=== PATIENT | female | born 1945 | race Caucasian/White ===

== ENCOUNTER → 2017-04-09 | Outpatient (RCR) | payer MEDICARE, OTHER, SELFPAY | LOC: PT 02-15 12:53 | PROVIDERS: Visit Provider Nurse Practitioner | DX: L03.116 Cellulitis of left lower limb (principal) | CPT/HCPCS: G8990; G8991; G8992; 97140; 97162; 97597 ==

== ENCOUNTER 2017-05-07 09:00 | Outpatient (RCR) | payer MEDICARE, OTHER, SELFPAY | END 2017-05-07 09:02 | disposition home or self-care (01) | LOC: PT 09:00 | PROVIDERS: Family Provider Family Medicine; PCP Family Medicine; Visit Provider Family Medicine | DX: L03.116 Cellulitis of left lower limb (principal) | CPT/HCPCS: 97140; 97597 ==

== ENCOUNTER → 2017-10-26 09:52 | Outpatient (CLI) | payer MEDICARE, OTHER, SELFPAY ==
--- NOTE | 2017-10-26 09:54 | US_ITS ---
US Arterial Ankle Brachial Ind HISTORY: ITS.REASON: skin. Changes. Discoloration lower legs. Lymphedema. Rest pain. Bilateral Claudication. Previous smoker. Hypertension. CVA. .. TECHNIQUE: Segmental pressures obtained of both right and left leg. These are compared to brachial blood pressure to yield index at each level sampled including summary MICHELLE. The data sheets from the procedure are available in PACS FINDINGS Rest study only performed today No prior studies available for comparison. Blood pressures reported are in millimeters mercury. ====== RIGHT LEG MICHELLE = 0.8. Mild impaired flow RIGHT LEG TBI = 0.8 Brachial BP: 182 Thigh BP: 143 with index 0.73 Calf BP: BP 132 with index 0.67 Ankle PT: BP 150 with index 0.76 Ankle DP : BP 121 with index 0.61 Digit =BP 109 with index 0.55 ====== LEFT LEG MICHELLE = 0.6 moderate impaired flow. LEFT TBI = 0.6 Brachial BPD: 197 Thigh BP: BP 176 with index 0.89 Calf BP: BP 161 with index 0.82 Ankle PT:BP 113 with index 0.57 Ankle DP: BP 113 with index 0.57 Digit = BP 121 with index 0.61 . diminished pulses. Adequate waveforms bilaterally. IMPRESSION:------- RIGHT LEG MICHELLE = 0.8. RIGHT LEG TBI = 0.8 LEFT LEG MICHELLE = 0.6. LEFT TBI = 0.6 Adequate waveforms bilaterally. Diminished pulses .
== END ==
PROVIDERS: Family Provider Family Medicine; PCP Family Medicine; Visit Provider Podiatrist
DX: R23.9 Unspecified skin changes (principal); R09.89 Other specified symptoms and signs involving the circulatory and respiratory systems
CPT/HCPCS: 93922

== ENCOUNTER → 2017-11-29 15:53 | Outpatient (CLI) | payer MEDICARE, OTHER, SELFPAY ==
--- NOTE | 2017-11-29 16:21 | XR_ITS ---
XR chest 2V HISTORY: Dyspnea. ITS.REASON: SHORTNESS OF BREATH,EDEMA ORDERING PHYSICIAN: Kimberly Martin PATIENT AGE: 72 years Technique: PA and lateral chest COMPARISON: PA and lateral chest 06/20/2015 FINDINGS:. Nothing definitely acute. Mild eccentric markings at the lung bases is similar to previous studies with no focal pneumonia. No pneumothorax. No pleural effusion. No CHF. Heart is upper normal in size. Calcified aortic knob. Mild degenerative changes T spine stable. Chest wall intact. IMPRESSION stable chest with nothing definitely acute.
== END ==
PROVIDERS: PCP Family Medicine; Visit Provider Nurse Practitioner Family
DX: R06.02 Shortness of breath (principal); R60.9 Edema, unspecified
CPT/HCPCS: 71046; 93005

== ENCOUNTER → 2017-11-30 09:35 | Outpatient (CLI) | payer MEDICARE, OTHER, SELFPAY ==
[2017-11-30 10:31] LABS: Basophils # 0.1 K/mm3 (0-0.2); Basophils % 0.9 % (0.1-2.0); Eosinophils # 0.5 K/mm3 (0.0-0.4); Eosinophils % 6.2 % (0.1-12.0); Hematocrit 42.8 % (37.0-47.0); Lymphocytes # 2.2 K/mm3 (0.7-4.5); Lymphocytes % 28.2 K/mm3 (10-50); Mean Corpuscular HGB Conc 32.8 g/dL (31.8-35.4); Mean Corpuscular Hemoglobin 29.7 pg (27.0-31.2); Mean Corpuscular Volume 90.7 fl (81-99); Mean Platelet Volume 7.2 fl (7.4-10.4); Monocytes # 0.5 K/mm3 (0.1-1.0); Monocytes % 5.9 % (1.7-9.3); Neutrophils # 4.6 K/mm3 (1.8-7.8); Neutrophils % 58.7 % (37.0-80.0); Platelet Count 158 K/mm3 (142-424); Red Blood Count 4.72 M/mm3 (4.20-5.40); Red Cell Distribution Width 13.4 % (11.5-17.5); White Blood Count 7.8 K/mm3 (4.8-10.8)
[2017-11-30 11:04] LABS: Alanine Aminotransferase 32 U/L (12-78); Albumin Level 3.5 gm/dL (3.4-5.0); Albumin/Globulin Ratio 1.1 (1.1-1.8); Alkaline Phosphatase 111 U/L (46-116); Anion Gap 12.4 mEq/L (5-15); Aspartate Amino Transferase 18 U/L (15-37); Bilirubin,Total 0.5 mg/dL (0.2-1.0); Blood Urea Nitrogen 22 mg/dL (7-18); Calcium 8.9 mg/dL (8.5-10.1); Carbon Dioxide 28 mmol/L (21.0-32.0); Chloride 105 mmol/L (98-107); Chol/HDL Ratio 5.4 (1-3.5); Cholesterol 227 mg/dL (140-200); Creatinine,Serum 1.54 mg/dL (0.55-1.02); Estimated Glomerular Filt Rate 33 ml/min (>60); Free T4 (Free Thyroxine) 1.04 ng/dl (0.76-1.46); GFR (African American) 40 ML/MIN (>60); Globulin 3.3 gm/dl (1.3-3.2); Glucose 140 mg/dL (74-106); HDL Cholesterol 42 mg/dL (29-89); LDL Cholesterol 146 mg/dL (0-130); Potassium 4.4 mmoL/L (3.5-5.1); Sodium 141 mmol/L (136-145); Total Protein,Serum 6.8 gm/dL (6.4-8.2); Triglycerides 195 mg/dL (30-200); VLDL Cholesterol 39 mg/dL (0-40)
== END ==
PROVIDERS: Visit Provider Nurse Practitioner Family
DX: R60.9 Edema, unspecified (principal); R06.02 Shortness of breath; Z79.899 Other long term (current) drug therapy
CPT/HCPCS: 36415; 80053; 80061; 83880; 84439; 84443; 85025

== ENCOUNTER → 2017-12-23 09:28 | Outpatient (CLI) | payer MEDICARE, OTHER, SELFPAY ==
--- NOTE | 2017-12-23 09:32 | US_ITS ---
US thyroid HISTORY: ITS.REASON: THYROMEGALY, hypothyroidism ORDERING PHYSICIAN: Kimberly Martin PATIENT AGE: 72 years Comparison: None FINDINGS: The right lobe is 4.2 x 1.2 0.4 cm. Multiple small nodules are present. Hypoechoic nodule upper pole 3 mm. Hypoechoic nodule upper pole 6 mm suggesting a cyst. 5 mm hypoechoic nodule upper pole. 13 mm hypoechoic nodule mid polar region representing a complex cyst with some septations well-circumscribed. 3 mm hypoechoic nodule lower pole The left lobe is 3.3 x 1.1 x 1.5 cm. Multiple hypoechoic nodules including a 4 mm hypoechoic nodule upper pole, and mixed nodule in the midpole 7 x 5 mm, and a complex cystic nodule in the midpole at 5 x 4 mm as well as a Hypoechoic nodule in the lower pole 6 mm. Hypoechoic nodule lower pole at 4 mm consistent with a cyst. IMPRESSION: Multiple small bilateral thyroid nodules. The largest nodules in the mid polar region on the right having a complex cystic appearance at 13 mm. Consider 6 month follow-up to confirm stability
[2017-12-23 11:19] VITALS: PULSE 56
== END ==
PROVIDERS: Family Provider Family Medicine; PCP Family Medicine; Visit Provider Nurse Practitioner Family
DX: R06.02 Shortness of breath (principal); E01.0 Iodine-deficiency related diffuse (endemic) goiter
CPT/HCPCS: 76536; 94060; 94640

== ENCOUNTER → 2018-07-05 13:53 | Outpatient (POV) | payer MEDICARE, OTHER, SELFPAY | PROVIDERS: Visit Provider Dermatology | DX: Z00.00 Encounter for general adult medical examination without abnormal findings (principal) ==

== ENCOUNTER → 2018-10-06 09:59 | Outpatient (CLI) | payer MEDICARE, OTHER, SELFPAY ==
--- NOTE | 2018-10-06 10:22 | XR_ITS ---
XR chest 2V HISTORY: ITS.REASON: SOB,SWELLING OF LOWER EXT ORDERING PHYSICIAN: Kimberly Martin APRN PATIENT AGE: 73 years COMPARISON: 11/29/2017. FINDINGS: The cardiomediastinal silhouette and pulmonary vascularity are within normal limits. The lungs are clear without infiltrates, suspicious nodules, or pleural effusions. No acute bony abnormalities. IMPRESSION: Negative chest, no acute finding
[2018-10-06 11:06] LABS: Basophils # 0.1 K/mm3 (0-0.2); Basophils % 0.9 % (0.1-2.0); Eosinophils # 0.5 K/mm3 (0.0-0.4); Hematocrit 41.9 % (37.0-47.0); Hemoglobin 13.1 g/dL (12.2-16.2); Lymphocytes # 2.6 K/mm3 (0.7-4.5); Lymphocytes % 33.2 % (10-50); Mean Corpuscular HGB Conc 31.3 g/dL (31.8-35.4); Mean Corpuscular Hemoglobin 30.5 pg (27.0-31.2); Mean Corpuscular Volume 97.6 fl (81-99); Mean Platelet Volume 7.3 fl (7.4-10.4); Monocytes # 0.4 K/mm3 (0.1-1.0); Monocytes % 5.6 % (1.7-9.3); Neutrophils # 4.2 K/mm3 (1.8-7.8); Neutrophils % 54.3 % (37.0-80.0); Platelet Count 269 K/mm3 (142-424); Red Blood Count 4.29 M/mm3 (4.20-5.40); Red Cell Distribution Width 14.8 % (11.5-17.5); White Blood Count 7.8 K/mm3 (4.8-10.8)
[2018-10-06 11:23] LABS: Alanine Aminotransferase 27 U/L (12-78); Albumin Level 3.4 gm/dL (3.4-5.0); Albumin/Globulin Ratio 0.8 (1.1-1.8); Alkaline Phosphatase 100 U/L (46-116); Anion Gap 16.7 mEq/L (5-15); Aspartate Amino Transferase 25 U/L (15-37); Bilirubin,Total 0.5 mg/dL (0.2-1.0); Blood Urea Nitrogen 31 mg/dL (7-18); Calcium 9.2 mg/dL (8.5-10.1); Carbon Dioxide 24 mmol/L (21.0-32.0); Chloride 104 mmol/L (98-107); Creatinine,Serum 1.48 mg/dL (0.55-1.02); Estimated Glomerular Filt Rate 34 ml/min (>60); GFR (African American) 42 ML/MIN (>60); Globulin 4.2 gm/dl (1.3-3.2); Glucose 146 mg/dL (74-106); Potassium 3.7 mmoL/L (3.5-5.1); Sodium 141 mmol/L (136-145); Total Protein,Serum 7.6 gm/dL (6.4-8.2); Troponin I < 0.02 ng/ml (0.00-0.06)
[2018-10-06 12:16] LABS: INR 1.03 (0.9-1.1); Prothrombin Time 10.7 seconds (9.4-11.8)
[2018-10-06 14:57] LABS: D-Dimer 2220 ng/mL (0-400)
== END ==
PROVIDERS: PCP Nurse Practitioner Family; Visit Provider Nurse Practitioner Family
DX: R06.02 Shortness of breath (principal); M79.89 Other specified soft tissue disorders
CPT/HCPCS: 36415; 71046; 80053; 84484; 85025; 85378; 85610; 93005

== ENCOUNTER → 2018-10-07 10:48 | Outpatient (CLI) | payer MEDICARE, OTHER, SELFPAY ==
--- NOTE | 2018-10-07 10:54 | NM_ITS ---
NM pul vent and perfuse CLINICAL INDICATION: ITS.REASON: SHORTNESS OF BREATH,ELEVATED D-DIMER ORDERING PHYSICIAN: Kimberly Martin APRN PATIENT AGE: 73 years Comparison: 10/06/2018 FINDINGS: The ventilation study is performed with 34.4 mCi of technetium DTPA. Perfusion is performed with 7.69 mCi of MAA. Ventilation portion of the study shows only mild inhomogeneous activity bilaterally. Perfusion images shows no subsegmental, segmental or lobar defects. IMPRESSION: Normal study. No evidence of pulmonary embolism.
== END ==
PROVIDERS: PCP Nurse Practitioner Family; Visit Provider Nurse Practitioner Family
DX: R06.02 Shortness of breath (principal); R79.89 Other specified abnormal findings of blood chemistry
CPT/HCPCS: 78582; A9540; A9567

== ENCOUNTER → 2018-10-26 15:15 | Outpatient (CLI) | payer MEDICARE, OTHER, SELFPAY ==
--- NOTE | 2018-10-26 15:20 | US_ITS ---
US thyroid HISTORY: Follow-up thyroid nodules ITS.REASON: MULTIPLE THYROID NODULES ORDERING PHYSICIAN: Danilo Durham MD PATIENT AGE: 73 years Comparison: 12/23/2017 FINDINGS: The right lobe is 4.3 x 2.2 x 2.2 cm. There are multiple cystic lesions of the right lobe of the thyroid gland the largest in the mid polar region measuring 1.3 x 1 cm unchanged. The left lobe is 4.5 x 1.7 x 1.4 cm. 6 mm septated cyst in the upper pole unchanged. 6 x 4 mm mixed nodule in the mid polar region unchanged. 4 mm complex cyst lower pole 4 mm cyst lower pole. The isthmus is slightly prominent at 8 mm. IMPRESSION: Multinodular goiter with most of the nodules representing cysts not significant change
== END ==
PROVIDERS: PCP Family Medicine; Visit Provider Family Medicine
DX: E04.2 Nontoxic multinodular goiter (principal)
CPT/HCPCS: 76536

== ENCOUNTER → 2019-01-02 14:29 | Outpatient (CLI) | payer MEDICARE, OTHER, SELFPAY ==
--- NOTE | 2019-01-02 14:33 | XR_ITS ---
PROCEDURE: XR FOOT WT BEARING RT 3V CLINICAL INDICATION: heel pain COMPARISON: No exams were available for comparison FINDINGS: Mild osteoarthritic changes are present at the talonavicular, navicular cuneiform, and cuneiform metatarsal junction. There is pes planus. Small calcaneal spur noted. Bone plate is present along the lateral aspect of the distal fibula. IMPRESSION: Mild osteoarthritic change with pes planus Dictated by: Guilherme Robbins MD 01/02/2019 16:45 Electronically signed by Guilherme Robbins MD in [place] 01/02/2019 16:45
== END ==
PROVIDERS: PCP Family Medicine; Visit Provider Podiatrist
DX: M79.672 Pain in left foot (principal)
CPT/HCPCS: 73630

== ENCOUNTER 2019-01-27 13:00 | Outpatient (RCR) | payer MEDICARE, OTHER, SELFPAY | END 2019-01-27 13:05 | disposition home or self-care (01) | LOC: PT 13:00 | PROVIDERS: PCP Family Medicine; Visit Provider Family Medicine | DX: I89.0 Lymphedema, not elsewhere classified (principal) | CPT/HCPCS: 97110; 97140; 97162; 97164 ==

== ENCOUNTER 2019-08-03 05:19 | Inpatient (IN) | payer MEDICARE, OTHER, SELFPAY ==
[2019-08-03] VITALS (34 sets, daily range): BP systolic 86–199; BP diastolic 39–98; PULSE 48–84; RESP 14–20; TEMP 36.4; O2SAT 86–97; BMI 39.9; BMI 43.6
--- NOTE | 2019-08-03 | IR_ITS ---
APPROVED REPORT Patient Location: Inpatient Poultry Veterinarian: RAFA Chapin RT (R) PROCEDURES Left heart catheterization Left ventriculogram Selective coronary angiogram Drug-eluting stent deployment to the proximal and mid large circumflex artery INDICATION Coronary artery disease, Acute non-ST elevation myocardial infarction Informed consent was obtained prior to the procedure. COMPLICATIONS NONE Estimated Blood Loss: LESS THAN 10 ML TECHNIQUE One percent lidocaine used to anesthetize the right anterior aspect of the wrist. The right radial artery was accessed via the Seldinger technique. A 6 Yakut sheath was placed in the right radial artery. 2.5 mg of verapamil, 800 mcg of nitroglycerin, 1mg Lidocaine and 5000 U Heparin were given through the arterial sheath. The trap catheter was also used to perform left heart catheterization, left ventriculogram and selective coronary angiogram. At the end of the diagnostic angiogram therapeutic heparin was administered giving a therapeutic ACT. And I Valerie left guide catheter was used to intubate the left main artery and a Choice PT extra-support wire was placed in the circumflex artery. A 2.5 x 12 mm balloon was used to predilate the stenosis. Following this a 3 mm x 26 mm resolute paulo stent was deployed at 20 ponce reducing the stenosis. Distal to this stent there was a 50% stenosis. Nitroglycerin was given 800 mcg which failed to reduce the lesion. Because this was not spasm a 2.75 x 12 mm resolute paulo stent was placed distal to the first stent yet still overlapping it and deployed at 20 ponce. The balloon was then brought back between the 2 and deployed at 26 ponce to post dilate and to allow better meshing. At the end of the procedure the apparatus was removed the sheath was removed good hemostasis was achieved using TR banding patient was transferred to the postop holding her stable condition ANGIOGRAPHIC RESULTS The left main artery Normal The left anterior descending artery Has proximal 20 to 30% stenosis with a mid vessel 40% stenosis followed by a concentric 50 to 70% stenosis. A 1.5 to 1.75 mm first diagonal artery has an ostial 70% stenosis. The circumflex artery Is nondominant yet a large caliber vessel with a proximal concentric greater than 90% stenosis The right coronary artery Is a dominant vessel and has an ostial 70% stenosis proximal 70% stenosis mid vessel 80 to 90% stenosis and is then distally occluded. There is a small less than 1 mm marginal branch distally. There is scant collateralization from the septal perforators of the LAD supplying the distal right coronary The GIBBS ventriculogram reveals Normal 65% The left ventricular end-diastolic pressure 35 mmHg IMPRESSION Coronary disease as described above Critical stenosis in a large proximal circumflex artery with successful stenting reducing the lesion to 0% with 2 contiguous drug-eluting stents Severe disease in the right coronary artery as described above with chronic distal occlusion with some collateralization from the LAD septal perforators Normal ejection fraction Elevated LVEDP consistent with advanced diastolic dysfunction PLAN 1. Brilinta and aspirin 2. LDL less than 55 3. Cardiac rehabilitation 4. Avoidance of tobacco products 5. Patient may benefit from low-dose diuretics to decrease LVEDP Electronically signed by : Reid Salcedo, 08/03/2019 11:56:13
--- NOTE | 2019-08-03 05:08 | ECG_ITS ---
APPROVED REPORT Exam: Resting ECG HR:56 bpm ECG Measurements Heart Rate 56 AXES NH 182 P 69 QRSd 106 QRS 31 QT 464 T 63 QTc 447 <Conclusion> Sinus bradycardia Otherwise normal ECG Electronically signed by : Mickey Singh, 08/06/2019 13:17:55
--- NOTE | 2019-08-03 05:21 | XR_ITS ---
PROCEDURE: XR CHEST PORTABLE CLINICAL HISTORY: chest pain w/ SOA Chest pain and shortness of breath COMPARISON: CXR CHEST(2 VIEWS-NOT PORTABLE) from 05/28/2015 CXR CHEST(2 VIEWS-NOT PORTABLE) from 06/20/2015 CXR2V XR chest 2V from 11/29/2017 FINDINGS: There is borderline cardiomegaly. There is pulmonary venous congestion with interstitial edema consistent with congestive heart failure. No acute bony abnormalities. IMPRESSION: Congestive heart failure with interstitial edema Dictated by: Guilherme Robbins MD 08/03/2019 07:27 Electronically signed by Guilherme Robbins MD in [place] 08/03/2019 07:27
[2019-08-03 05:37] LABS: Chloride 108 mmol/L (98-107); Potassium 4.4 mmoL/L (3.5-5.1); Sodium 138 mmol/L (136-145)
[2019-08-03 05:39] LABS: Basophils # 0.1 K/mm3 (0-0.2); Basophils % 1.1 % (0.1-2.0); Eosinophils # 0.7 K/mm3 (0.0-0.4); Eosinophils % 6.5 % (0.1-12.0); Hematocrit 41.4 % (37.0-47.0); Hemoglobin 14.1 g/dL (12.2-16.2); Mean Corpuscular Hemoglobin 30.6 pg (27.0-31.2); Mean Platelet Volume 9.1 fl (7.4-10.4); Monocytes # 0.5 K/mm3 (0.1-1.0); Monocytes % 5.3 % (1.7-9.3); Neutrophils # 4.9 K/mm3 (1.8-7.8); Neutrophils % 48.1 % (37.0-80.0); Platelet Count 189 K/mm3 (142-424); Red Cell Distribution Width 13.1 % (11.5-17.5); White Blood Count 10.1 K/mm3 (4.8-10.8)
[2019-08-03 05:39] LABS: ABG Base Excess -7.6 mmol/L (-2.4-2.3); ABG HCO3 18.1 mmhg (22.0-26.0); ABG Oxygen Saturation 93 % (90-100); ABG PCO2 33.9 mmhg (35.0-45.0); ABG PH 7.35 mmol/L (7.35-7.45); ABG PO2 71.1 mmhg (80-100); ABG TCO2 19.1 mmhg (23-27)
[2019-08-03 05:40] LABS: Blood Urea Nitrogen 28 mg/dl (7-17); Creatinine Clearance Estimated 49 mL/min (50-200); Estimated Glomerular Filt Rate 29 ml/min (>60); GFR (African American) 35 ML/MIN (>60)
[2019-08-03 05:41] LABS: Anion Gap 13.4 mEq/L (5-15); Calcium 9.2 mg/dl (8.4-10.2); Carbon Dioxide 21 mmol/L (22.0-30.0); Glucose 148 mg/dl (74-100)
[2019-08-03 05:41] LABS: Allen's Test Acceptable; Source Left Radial
--- NOTE | 2019-08-03 05:43 | HMH.EDCP ---
ED Disposition Clinical Impression: Unstable angina pectoris, Renal insufficiency Disposition: Admitted As Inpatient Condition on Discharge: Fair - Critical Care Critical Care Time: Yes Attestation: On 08/03/19, the high probability of a clinically significant, sudden or life threatening deterioration of the following system(s) required my full and direct attention, intervention and personal management. The time I documented below is in addition to time spent performing reported procedures but includes the following listed in this critical care notation. Total Critical Care Time: 30 Vital system(s) involved:: Circulatory Failure My critical care processes included: Assessment & monitoring of V/S, Initial and Re-exams, Medication Orders and management, Documentation Medical Decision Making - Medical Records Medical records reviewed: Yes: I reviewed the patient's medical records. - Brennan Inquiry Pt receiving controlled substance: No Vital Signs: 08/03/19 05:23 08/03/19 05:30 08/03/19 05:46 Temperature 97.6 F Temperature Source Oral Pulse Rate [Left] 60 65 55 L Respiratory Rate 14 14 14 Blood Pressure [Right Arm] 86/54 L 120/53 L 107/56 L Blood Pressure Mean [Right Arm] 64 75 73 Blood Pressure Source [Right Arm] Automatic Cuff Automatic Cuff Blood Pressure Position [Right Arm] Supine Supine 02 Sat by Pulse Oximetry 86 L 96 94 L Oxygen Delivery Method Room Air Nasal Cannula Nasal Cannula Oxygen Flow Rate (LPM) 4 4 08/03/19 05:49 08/03/19 06:19 Temperature Temperature Source Pulse Rate [Left] 50 L 53 L Respiratory Rate 16 14 Blood Pressure [Right Arm] 124/55 L 126/65 Blood Pressure Mean [Right Arm] 78 85 Blood Pressure Source [Right Arm] Automatic Cuff Blood Pressure Position [Right Arm] Supine 02 Sat by Pulse Oximetry 96 96 Oxygen Delivery Method Nasal Cannula Oxygen Flow Rate (LPM) 4 - Lab Data Lab results reviewed: Yes: I reviewed the patient's lab results. Lab Results 08/03/19 05:00: WBC 10.1, RBC 4.60, Hgb 14.1, Hct 41.4, MCV 90.0, MCH 30.6, MCHC 34.0, RDW 13.1, Plt Count 189, MPV 9.1, Neut % (Auto) 48.1, Lymph % (Auto) 39.0, Vermilion % (Auto) 5.3, Eos % (Auto) 6.5, Baso % (Auto) 1.1, Neut # (Auto) 4.9, Lymph # (Auto) 4.0, Vermilion # (Auto) 0.5, Eos # (Auto) 0.7 H, Baso # (Auto) 0.1 08/03/19 05:00: Sodium 138, Potassium 4.4, Chloride 108 H, Carbon Dioxide 21 L, Anion Gap 13.4, BUN 28 H, Creatinine 1.70 H, Estimated Creat Clear 49, Estimated GFR 29 L, Est GFR ( Amer) 35 L, Glucose 148 H, Calcium 9.2, Troponin I 0.80 H 08/03/19 05:22: Specimen Source Left radial, O2 % 3lpm nc, ABG pH 7.35, ABG pCO2 33.9 L, ABG pO2 71.1 L, ABG HCO3 18.1 L, ABG Total CO2 19.1 L, ABG O2 Saturation 93, ABG Base Excess -7.6 L, Guilherme Test Acceptable Result diagrams: 08/03/19 05:00 08/03/19 05:00 Orders (Tests/Meds): ED MEDICATIONS Generic Name Dose Route Start Last Admin Trade Name Freq PRN Reason Stop Dose Admin Sodium Chloride 1,000 mls @ 999 mls/hr 08/03/19 05:30 08/03/19 05:32 Sod Chlor 0.9% 1000ml Bag IV 08/03/19 06:30 999 mls/hr .Q1H1M MACARENA Administration Nitroglycerin/Dextrose 250 mls @ 1.5 mls/hr 08/03/19 06:15 08/03/19 06:18 Nitroglycerin 50mg/250ml D5w IV 09/02/19 06:14 5 mcg/min .Q24H MACARENA 1.5 mls/hr Administration Protocol 5 MCG/MIN ORDERS Category Date Time Status XR chest portable Stat Exams 08/03/19 05:21 Taken Troponin I Q3H Lab 08/03/19 08:30 Ordered Troponin I Q3H Lab 08/03/19 11:30 Ordered - Radiology Data #1 Image(s): Chest Image Reviewed: Yes I reviewed the patient's radiology image Preliminary Findings: Abnormal (poor insp) - ECG Data Tracing #1 Arrhythmias present: sinus conrad Ischemic changes: non-specific ST-T wave changes - Physician Consults Physician Consulted: minh Reason -: Pt condition Chest Pain HPI - General Chief Complaint: Chest Pain Stated Complaint: Cest Pain Time Seen by Provider: 0
--- NOTE | 2019-08-03 06:02 | ECG_ITS ---
APPROVED REPORT Exam: Resting ECG HR:53 bpm ECG Measurements Heart Rate 53 AXES RI 182 P 68 QRSd 90 QRS -2 QT 492 T 66 QTc 461 <Conclusion> Sinus bradycardia Nonspecific ST abnormality Abnormal ECG Electronically signed by : Mickey Singh, 08/06/2019 13:17:24
--- NOTE | 2019-08-03 06:05 | PC.NURSE ---
Dr Fuchs spoke with Dr Salcedo
--- NOTE | 2019-08-03 07:02 | PC.NURSE ---
Stefani GREENE NOTIFIED OF CONSULT.
[2019-08-03 07:03] LABS: Chol/HDL Ratio 4.9 (1-3.5); Cholesterol 190 mg/dl (140-200); HDL Cholesterol 39 mg/dl (40-60); Triglycerides 249 mg/dl (30-150); VLDL Cholesterol 50 mg/dL (0-40)
[2019-08-03 07:05] LABS: INR 0.98 (0.9-1.1); Prothrombin Time 10.2 seconds (9.4-11.8)
[2019-08-03 07:14] LABS: Direct LDL Cholesterol 131.61 mg/dL (100-129)
--- NOTE | 2019-08-03 07:33 | HMH.HP ---
*Admission Date: 08/03/19 *Chief complaint: Chest pain *History of present illness: 74-year-old female with hypertension presented to the emergency department this morning after developing a dull aching pain in her chest around 4 AM. Patient was awake at the time and tells me she had discomfort in both arms that radiated up to the shoulders and into the neck and then descended down into the chest. She may have had mild dyspnea but was diaphoretic without nausea. She has no personal history of coronary artery disease but there is a family history as her father had his first heart attack when he was in his late 50s. Patient admits she has been having chest discomfort for the last week with symptoms occurring nightly 1 week ago. On evaluation in the emergency department patient was hypoxic and bradycardic and initial troponin returned abnormal. Cardiology has been consulted and patient has been admitted for myocardial infarction. [facility] History I have reviewed the patient's past medical history: Yes Medical History: Reports:: Deep Vein Thrombosis, Depression, Hypertension, MRSA Denies:: Diabetes Mellitus Type 1, Diabetes Mellitus Type 2, Internal Pacemaker *Have you ever received a pneumonia vaccine?: Yes *Have you received a flu vaccine this season?: Yes Other Medical History: Reports: Arthritis, Sinus Problems Laterality Cases: Bilateral: Tonsillectomy, Other Other Surgeries: Yes: Appendectomy, Colonoscopy, Hysterectomy-Total. No: Pacemaker Amputation: No Fractures: Yes (Right ankle. ) - *Social History Smoking Status: Former smoker Alcohol Intake: never Alcohol Intake Frequency:: other Substance Use Type: denies use *Occupational Status:: retired *Travel in the last 8 weeks: None - Psychiatric History Pschychiatric History:: Reports:: Depression Family Hx:: No significant family history Review of Systems - Review of Systems Review of systems:: pertinent systems reviewed and negative unless documented below - *Neurologic Denies abnormal speech, Denies localized weakness, Denies headache(s), Denies tingling/numbness/burning sensations Meds Home Medications Medication Instructions Recorded Confirmed Type doxazosin 2 mg tablet 2 mg PO HS 30 Days #30 10/12/17 08/03/19 History duloxetine 60 mg capsule,delayed 60 mg PO DAILY 30 Days #30 10/12/17 08/03/19 History release metoprolol tartrate 50 mg tablet 50 mg PO BID 30 Days #60 10/12/17 08/03/19 History amlodipine 5 mg tablet 5 mg PO DAILY #90 tab 03/20/19 08/03/19 History chlorthalidone 25 mg tablet 25 mg PO DAILY #90 tab 03/20/19 08/03/19 History levothyroxine 150 mcg tablet 150 mcg PO DAILY #90 tab 03/20/19 08/03/19 History Allergies Allergy/AdvReac Type Severity Reaction Status Date / Time iodine Allergy Unknown Verified 03/20/19 11:09 Exam Vital signs and Labs for Last 24 Hours: Temp Pulse Resp BP Pulse Ox 97.6 F 51 L 14 101/50 L 96 08/03/19 06:44 08/03/19 06:44 08/03/19 06:44 08/03/19 06:44 08/03/19 06:32 Laboratory Results - last 24 hr 08/03/19 05:00: WBC 10.1, RBC 4.60, Hgb 14.1, Hct 41.4, MCV 90.0, MCH 30.6, MCHC 34.0, RDW 13.1, Plt Count 189, MPV 9.1, Neut % (Auto) 48.1, Lymph % (Auto) 39.0, Schuyler % (Auto) 5.3, Eos % (Auto) 6.5, Baso % (Auto) 1.1, Neut # (Auto) 4.9, Lymph # (Auto) 4.0, Schuyler # (Auto) 0.5, Eos # (Auto) 0.7 H, Baso # (Auto) 0.1 08/03/19 05:00: Sodium 138, Potassium 4.4, Chloride 108 H, Carbon Dioxide 21 L, Anion Gap 13.4, BUN 28 H, Creatinine 1.70 H, Estimated Creat Clear 49, Estimated GFR 29 L, Est GFR ( Amer) 35 L, Glucose 148 H, Calcium 9.2, Troponin I 0.80 H 08/03/19 05:00: PT 10.2, INR 0.98 08/03/19 05:00: Triglycerides 249 H, Cholesterol 190, LDL Cholesterol Direct 131.61 H, VLDL Cholesterol 50 H, HDL Cholesterol 39 L, Cholesterol/HDL Ratio 4.9 H 08/03/19 05:22: Specimen Source Left radial, O2 % 3lpm nc, ABG pH 7.35, ABG pCO2 33.9 L, ABG pO2 71.1 L, ABG HCO3 18.1 L, ABG Total CO2 19.1 L, ABG O2 Saturation 93, ABG Base E
--- NOTE | 2019-08-03 07:40 | P.CONPHA_ITS ---
[facility] Pharmacy VTE Monitoring - Patient Demographics Admission date: 08/03/19 Report Date: 08/03/19 Time: 07:40 Allergies/Adverse Reactions: Patient Allergies iodine Allergy (Unknown, Verified 03/20/19 11:09) Height: 1.65 m Weight: 118.983 kg Patient Problems: Current Active Problems Unstable angina pectoris (Acute) Renal insufficiency (Acute) Acute coronary syndrome (Acute) BMI 39.0-39.9,adult (Acute) Hypertension (Acute) Family history of coronary artery disease in father (Acute) - VTE Risk Labs: VTE Related Lab Results Hgb 14.1 g/dL (12.2-16.2) 08/03/19 05:00 Hct 41.4 % (37.0-47.0) 08/03/19 05:00 Plt Count 189 K/mm3 (142-424) 08/03/19 05:00 PT 10.2 seconds (9.4-11.8) 08/03/19 05:00 INR 0.98 (0.9-1.1) 08/03/19 05:00 BUN 28 mg/dl (7-17) H 08/03/19 05:00 Creatinine 1.70 mg/dl (0.52-1.04) H 08/03/19 05:00 Estimated Creat Clear 49 mL/min (50-200) 08/03/19 05:00 Clinical Trial Participant: No - Prophylaxis VTE Prophylaxis Ordered?: Yes Types of VTE Prophylaxis: TEDS Knee High
--- NOTE | 2019-08-03 08:00 | CA_ITS ---
APPROVED REPORT EXAM: Comprehensive 2D, Doppler, and color-flow Echocardiogram Children'S Tutor: Carissa Marx CRT Ht: 5 ft 5 in Wt: 240lbs BSA: 2.14 BP: 107/56 mmHg Indications: Chest Pain, Chest Pressure, Obesity, Hyperlipidemia, Hypertension/HDD, lymphedema 2D Dimensions LVOT 1.73 cm (M/F) 1.5-2.5 M-Mode Dimensions RVDd 2.21 cm (0.9-2.6) LV Diastology E/A Ratio 1.40 Mitral Valve MV A Velocity 77.00 (40-130 cm/s) Left Ventricle Left atrium is mildly enlarged, left ventricle is normal size, mild concentric left ventricular hypertrophy, visually estimated ejection fraction 55% with no regional wall motion abnormality. Grade 2 diastolic dysfunction seen with tissue Doppler evidence of raise left atrial pressure. Right Ventricle Right atrium and right ventricular mildly enlarged with normal contractility. Aortic Valve Aortic valve is minimally thickened and fibrosed, there is no aortic stenosis or aortic insufficiency. Mitral Valve Mitral valve has mild mitral annular calcification, there is no mitral stenosis, there is moderate mitral regurgitation. Tricuspid Valve Tricuspid valve is grossly normal, there is mild tricuspid regurgitation, tricuspid regurgitation jet velocity is inadequate for calculation of the right ventricular systolic pressure. Pulmonic Valve Pulmonic valve is poorly visualized. Great Vessels Aortic root is normal size. Pericardium No significant pericardial effusion noted. Conclusion 1. Biatrial enlargement, normal left ventricular size, mild concentric left ventricular hypertrophy, visually estimated ejection fraction 55% with no regional wall motion abnormality, grade 2 diastolic dysfunction seen with tissue Doppler evidence of raise left atrial pressure. 2. Mildly enlarged right ventricle with normal contractility. 3. Moderate mitral and mild tricuspid regurgitation. 4. No significant pericardial effusion noted. Electronically signed by : Espinoza Cramer, 08/03/2019 11:56:57
--- NOTE | 2019-08-03 08:33 | HMH.CNCARD ---
History of Present Illness Consult date: 08/03/19 Requesting physician: Mickey Molina Consult reason: chest pain Chief complaint: ACS Additional Medical History:: 1. HTN, treated for 20 yrs 2. FH of CAD, father of AL in his mid 50's 3. Obesity 4. HLD 5. History of DVT 6. History of depression 7. Hypothyroidism, on replacement History of present illness: 74-year-old female with hypertension presented to the emergency department this morning after developing a dull aching pain in her chest around 4 AM. Patient was awake at the time and tells me she had discomfort in both arms that radiated up to the shoulders and into the neck and then descended down into the chest. She may have had mild dyspnea but was diaphoretic without nausea. She has no personal history of coronary artery disease but there is a family history as her father had his first heart attack when he was in his late 50s. Patient admits she has been having chest discomfort for the last week with symptoms occurring nightly 1 week ago. On evaluation in the emergency department patient was hypoxic and bradycardic and initial troponin returned abnormal. Cardiology has been consulted and patient has been admitted for myocardial infarction. The above per Dr. Molina In addition to above, pt relates LE edema for the last week. EKG #1 is sinus conrad at [address] depression anteriorly that has improved on EKG #2 one hour later. Initial troponin is 0.8 Pt is pain free at this time. [facility] History Medical History: Reports:: Deep Vein Thrombosis, Depression, Hyperlipidemia, Hypertension Denies:: Cancer, Diabetes Mellitus Type 1, Diabetes Mellitus Type 2, Internal Pacemaker, MRSA *Have you ever received a pneumonia vaccine?: Yes *Have you received a flu vaccine this season?: Yes Other Medical History: Reports: Arthritis, Hypothyroidism, Sinus Problems, Thyroid Disease Laterality Cases: Bilateral: Tonsillectomy, Other Other Surgeries: Yes: Appendectomy (at 15), Colonoscopy, Dilation and Curettage (x2), Hysterectomy-Total. No: Pacemaker Amputation: No Fractures: Yes (Right ankle. ) - *Social History Educational Level: Completed High School Smoking Status: Former smoker # Packs/Day (cigarettes): 1 Smoking End Date: 7 years ago Alcohol Intake: never Alcohol Intake Frequency:: other Substance Use Type: denies use *Occupational Status:: retired Housing: house Household Members: spouse *Travel in the last 8 weeks: None - Psychiatric History Pschychiatric History:: Reports:: Depression Family Hx:: Heart Attack, Hyperlipidemia, Hypertension, Stroke Meds Home Medications Medication Instructions Recorded Confirmed Type doxazosin 2 mg tablet 2 mg PO HS 30 Days #30 10/12/17 08/03/19 History duloxetine 60 mg capsule,delayed 60 mg PO DAILY 30 Days #30 10/12/17 08/03/19 History release metoprolol tartrate 50 mg tablet 50 mg PO BID 30 Days #60 10/12/17 08/03/19 History amlodipine 5 mg tablet 5 mg PO DAILY #90 tab 03/20/19 08/03/19 History chlorthalidone 25 mg tablet 25 mg PO DAILY #90 tab 03/20/19 08/03/19 History levothyroxine 150 mcg tablet 150 mcg PO DAILY #90 tab 03/20/19 03/20/19 History Ezetimibe 10 mg PO DAILY 08/03/19 08/03/19 History Allergies Allergy/AdvReac Type Severity Reaction Status Date / Time iodine Allergy Unknown Verified 03/20/19 11:09 Review of Systems - Review of Systems Review of systems:: pertinent systems reviewed and negative unless documented below - *Cardiovascular Reports chest pain, Denies shortness of breath - *Respiratory Denies cough, Denies shortness of breath - *Gastrointestinal Denies loose stools, Denies loose stools, Denies vomiting - *Genitourinary Denies blood in urine - *Musculoskeletal Denies joint pain, Denies back pain - *Neurologic Denies abnormal speech, Denies localized weakness, Denies headache(s), Denies tingling/numbness/burning sensations Exam Vital signs and Labs for Last 24 Hours:
--- NOTE | 2019-08-03 08:59 | HMH.PHAINT ---
MEDICATION RECONCILIATION COMPLETE. OBTAINED MEDICATION LIST FROM PROVIDER AND CROSS REFERENCED WITH PHARMACY FILL HISTORY. DISCUSSED WITH PATIENT TO VERIFY LEVOTHYROXINE DOSE. CHECKED WITH PATIENT TO SEE IF SHE WAS TAKING ASA, PERCOCET, CYCLOBENZAPRINE, LORATADINE, ULORIC, ENOXAPARIN, OR FUROSEMIDE. PATIENT REPORTS TAKING PERCOCET, BUT HAS NOT BEEN FILLED SINCE 12/2018. PATIENT ONLY TAKES ASA WHEN SHE REMEMBERS TO TAKE IT.
[2019-08-03 10:33] LABS: Troponin I 1.94 ng/ml (0.00-0.034)
--- NOTE | 2019-08-03 10:34 | PC.NURSE ---
elevated troponin called from lab. relayed to cathlab sine patient headed down for heart cath at this time.
--- NOTE | 2019-08-03 11:10 | PC.NURSE ---
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 did relay unable to give dose of brilinta
[2019-08-03 12:36] LABS: CATHL Activated Clotting Time 284 SEC (74-125)
--- NOTE | 2019-08-03 14:52 | PC.NURSE ---
called mendoza bejarano about patient bp being elevated systolic 170s-190s. patient heart rate 48-60. he ordered lisinopril 5mg bid first dose now with second dose to follow in morning.
--- NOTE | 2019-08-03 19:22 | PC.NURSE ---
patient has done well this shift. no complaints. telfa and tegaderm to cath site no signs of bleeding or hematoma. did stated she felt a little jumpy shortly after heart cath but as sedation wore off patient noted to feel better. bp on higher end. heart rate maintains mostly 48-60 however at times will speed up to 70s then back down again. weaned to room air and tolerating well. rings out as needed. some stress incontinence noted. slight swelling in legs.
[2019-08-04] VITALS: BP 173/72; PULSE 70; PULSE 79; RESP 16; O2SAT 93
[2019-08-04 02:00] VITALS: BP 165/88; PULSE 67; RESP 15; O2SAT 92
--- NOTE | 2019-08-04 02:46 | PC.NURSE ---
A&OX3. PERRLA, ELECTROPLATING LABORER EQUAL BILAT. LUNGS CLEAR T/O AUSCULTATION. TOLERATED RA WELL. PULSES +2, CAP REFILL <3SEC. +1 PITTING EDEMA AND PINK COLORATION NOTED TO BLE ON ASSESSMENT. BRADYCARDIA AND NSR NOTED PER PARK ATTENDANT. HR WOULD DECREASE LOW 40'S BUT WOULD IMMEDIATELY INCREASE TO A HR WNL. NO C/O CP NOTED STATED. PT DID C/O I FEEL LIKE I CAN'T GET MY BREATH SOMETIMES. EDUCATED PT ON SIDE EFFECT OF BRILLINTA AND OXYGEN CONTINUOUSLY BEING MONITORED AND NOTED >90%, CURRENTLY 97%, PT VERBALIZED UNDERSTANDING OF TEACHINGS. ABDOMEN NOTED NONDISTENDED, HYPOACTIVE BOWEL SOUNDS, AND SOFT AND NONTENDER PER PALPATION. STRESS INCONTINENCE NOTED THIS SHIFT. RIGHT RADIAL DRESSING NOTED CDI. NO S/S OF HEMATOMA FORMATION, SOFT AND DENIES PAIN ON PALPATION. SBA WITH AMBULATION TO AND FROM BATHROOM. VSS. WILL CONTINUE TO MONITOR.
[2019-08-04 04:00] VITALS: BP 161/74; PULSE 80; RESP 18; TEMP 36.6; O2SAT 91
--- NOTE | 2019-08-04 04:00 | PC.NURSE ---
PT HAD EPISODE OF INCONTINENCE, BED LINENS AND GOWN CHANGED. PT STATED OH I GUESS WHILE I WAS SLEEPING IT USED THE BATHROOM. I HAD NO IDEA THAT I HAD GONE. EDUCATED PT ON NEED OF WEARING AN ATTENDS AND STAFF WOULD MONITOR THE ATTENDS FOR CHANGING PRN Q2H. PT UNDERSTOOD NEED AND AGREED TO WEAR ATTENDS. PT REFUSED BATH AT THIS TIME, BED LINENS CHANGED. PT ASSISTED TO BATHROOM WITH SBA, VOIDED PER TOILET. URINE NOTED YELLOW WITH SEDIMENT. APPLIED ATTENDS AND WILL MONITOR PT REGULARLY FOR POSSIBLE ATTENDS CHANGE.
[2019-08-04 05:00] VITALS: BMI 42.8
[2019-08-04 06:00] VITALS: BP 138/58; PULSE 69; RESP 16; O2SAT 91
[2019-08-04 06:04] LABS: Basophils # 0.1 K/mm3 (0-0.2); Basophils % 0.6 % (0.1-2.0); Eosinophils # 0.5 K/mm3 (0.0-0.4); Eosinophils % 6.3 % (0.1-12.0); Hematocrit 37.8 % (37.0-47.0); Lymphocytes # 1.6 K/mm3 (0.7-4.5); Lymphocytes % 19.5 % (10-50); Mean Corpuscular HGB Conc 34.4 g/dL (31.8-35.4); Mean Corpuscular Hemoglobin 30.7 pg (27.0-31.2); Mean Corpuscular Volume 89.3 fl (81-99); Mean Platelet Volume 8.2 fl (7.4-10.4); Monocytes # 0.5 K/mm3 (0.1-1.0); Monocytes % 5.9 % (1.7-9.3); Neutrophils # 5.6 K/mm3 (1.8-7.8); Neutrophils % 67.8 % (37.0-80.0); Platelet Count 149 K/mm3 (142-424); Red Blood Count 4.24 M/mm3 (4.20-5.40); White Blood Count 8.3 K/mm3 (4.8-10.8)
[2019-08-04 06:08] LABS: Chloride 111 mmol/L (98-107); Sodium 140 mmol/L (136-145)
[2019-08-04 06:09] LABS: Potassium 3.8 mmoL/L (3.5-5.1)
[2019-08-04 06:11] LABS: Anion Gap 9.8 mEq/L (5-15); Blood Urea Nitrogen 18 mg/dl (7-17); Carbon Dioxide 23 mmol/L (22.0-30.0); Creatinine Clearance Estimated 38 mL/min (50-200); Estimated Glomerular Filt Rate 48 ml/min (>60); GFR (African American) 59 ML/MIN (>60)
[2019-08-04 06:12] LABS: Calcium 8.6 mg/dl (8.4-10.2); Glucose 123 mg/dl (74-100); Magnesium 2.1 mg/dl (1.6-2.3)
--- NOTE | 2019-08-04 07:13 | HMH.DCSUM ---
General - General Admission date:: 08/03/19 Discharge date: 08/04/19 HPI HPI: 74-year-old female with hypertension presented to the emergency department this morning after developing a dull aching pain in her chest around 4 AM. Patient was awake at the time and tells me she had discomfort in both arms that radiated up to the shoulders and into the neck and then descended down into the chest. She may have had mild dyspnea but was diaphoretic without nausea. She has no personal history of coronary artery disease but there is a family history as her father had his first heart attack when he was in his late 50s. Patient admits she has been having chest discomfort for the last week with symptoms occurring nightly 1 week ago. On evaluation in the emergency department patient was hypoxic and bradycardic and initial troponin returned abnormal. Cardiology has been consulted and patient has been admitted for myocardial infarction. Hospital Course Hospital Course: Patient was admitted to the stepdown unit for heart acute non-ST elevation [place]. Echocardiogram was ordered. Cardiology was consulted. Echocardiogram revealed grade 2 diastolic dysfunction. Patient was taken to the laborer construction or leak gang for left heart catheterizations with findings as follows: ANGIOGRAPHIC RESULTS The left main artery Normal The left anterior descending artery Has proximal 20 to 30% stenosis with a mid vessel 40% stenosis followed by a concentric 50 to 70% stenosis. A 1.5 to 1.75 mm first diagonal artery has an ostial 70% stenosis. The circumflex artery Is nondominant yet a large caliber vessel with a proximal concentric greater than 90% stenosis The right coronary artery Is a dominant vessel and has an ostial 70% stenosis proximal 70% stenosis mid vessel 80 to 90% stenosis and is then distally occluded. There is a small less than 1 mm marginal branch distally. There is scant collateralization from the septal perforators of the LAD supplying the distal right coronary The GIBBS ventriculogram reveals Normal 65% The left ventricular end-diastolic pressure 35 mmHg IMPRESSION Coronary disease as described above Critical stenosis in a large proximal circumflex artery with successful stenting reducing the lesion to 0% with 2 contiguous drug-eluting stents Severe disease in the right coronary artery as described above with chronic distal occlusion with some collateralization from the LAD septal perforators Normal ejection fraction Elevated LVEDP consistent with advanced diastolic dysfunction PLAN 1. Brilinta and aspirin 2. LDL less than 55 3. Cardiac rehabilitation 4. Avoidance of tobacco products 5. Patient may benefit from low-dose diuretics to decrease LVEDP After cardiac catheterization patient was continued on aspirin and Brilinta. Atorvastatin was added to her regimen. Lisinopril 5 mg twice daily was initiated. The following morning patient denies shortness of breath, chest pain at rest or with exertion. Blood pressure had been elevated overnight. Lasix 40 mg daily was added to her regimen. After evaluation by cardiology service on the morning of August 03 patient was discharged home. Patient will follow-up with both myself and the cardiology service in 1 week. Objective Vital signs: Temp Pulse Resp BP Pulse Ox 98 F 80 18 161/74 H 91 L 08/04/19 04:00 08/04/19 04:00 08/04/19 04:00 08/04/19 04:00 08/04/19 04:00 no acute distress - *Routine Respiratory Exam Present: CTA bilaterally - *Routine Cardiovascular Exam Present: RRR, Normal S1, Normal S2 - *Routine Extremities Exam Present: edema Results Labs on day of discharge: Labs from last 24 hours 08/04/19 08/04/19 08/03/19 05:44 05:44 10:49 WBC 8.3 RBC 4.24 Hgb 13.0 Hct 37.8 MCV 89.3 MCH 30.7 MCHC 34.4 RDW 13.0 Plt Count 149 MPV 8.2 Neut % (Auto) 67.8 Lymph % (Auto) 19.5 [place] % (Auto) 5.9 Eos % (Auto) 6.3
--- NOTE | 2019-08-04 07:27 | HMH.PNCARD ---
Subjective Date: 08/04/19 Time: 07:28 Principal diagnosis: NSTEMI Interval history: 74 yo WF in bed eating breakfast in NAD. No complaints overnight. Feeling much better. Ready to go home. Exam Vital signs and Labs for Last 24 Hours: Temp Pulse Resp BP Pulse Ox 98 F 80 18 161/74 H 91 L 08/04/19 04:00 08/04/19 04:00 08/04/19 04:00 08/04/19 04:00 08/04/19 04:00 Laboratory Results - last 24 hr 08/03/19 09:50: Troponin I 1.94 H 08/03/19 10:49: Activated Clotting Time 284 H* 08/04/19 05:44: WBC 8.3, RBC 4.24, Hgb 13.0, Hct 37.8, MCV 89.3, MCH 30.7, MCHC 34.4, RDW 13.0, Plt Count 149, MPV 8.2, Neut % (Auto) 67.8, Lymph % (Auto) 19.5, [place] % (Auto) 5.9, Eos % (Auto) 6.3, Baso % (Auto) 0.6, Neut # (Auto) 5.6, Lymph # (Auto) 1.6, [place] # (Auto) 0.5, Eos # (Auto) 0.5 H, Baso # (Auto) 0.1 08/04/19 05:44: Sodium 140, Potassium 3.8, Chloride 111 H, Carbon Dioxide 23, Anion Gap 9.8, BUN 18 H D, Creatinine 1.10 H D, Estimated Creat Clear 38, Estimated GFR 48 L, Est GFR ( Amer) 59 D, Glucose 123 H, Calcium 8.6, Magnesium 2.1 I & O for Last 24 hours: Intake & Output 08/01/19 08/02/19 08/03/19 08/04/19 11:59 11:59 11:59 11:59 Intake Total 1000 / 1000 643 / 643 Balance 1000 / 1000 643 / 643 Weight 262 lb 5 oz 257 lb 1 oz - *Routine HEENT Exam Head: Present: normocephalic Eye: Present: EOMI, PERRL ENT: Present: mucous membranes moist - *Routine Respiratory Exam Present: CTA bilaterally. Absent: accessory muscle use, rales, rhonchi, wheezes - *Routine Cardiovascular Exam Present: RRR. Absent: murmur, gallop, rubs - *Routine Extremities Exam Present: edema. Absent: calf tenderness - *Routine Neurological Exam Present: alert, oriented X3, moving all extremities Progress Note: A&P (1) Non-STEMI (non-ST elevated myocardial infarction) Status: Acute Current Visit: Yes (2) Grade II diastolic dysfunction Status: Acute Current Visit: Yes (3) Acute coronary syndrome Status: Acute Current Visit: Yes (4) BMI 39.0-39.9,adult Status: Acute Current Visit: Yes (5) Hypertension Status: Acute Current Visit: Yes (6) Family history of coronary artery disease in father Status: Acute Current Visit: Yes Assessment and Plan for All Diagnoses:: 1. NSTEMI, s/p 2 SHARYN to Circumflex. On DAPT with ASA and Brilinta. 2. HTN with grade 2 diastolic dysfunction, on DEJUAN and BB with diuretic also. 3. HLD, on statin 4. Moderate MR 5. Follow up with us in one week.
--- NOTE | 2019-08-04 07:59 | PC.NURSE ---
RETURNED BRILINTA AND JEWELRY (3 RINGS AND 1 NECKLACE)
[2019-08-04 08:00] VITALS: BP 141/62; PULSE 70; PULSE 77; RESP 14; TEMP 36.9; O2SAT 92
--- NOTE | 2019-08-04 08:12 | PC.NURSE ---
CALLED AYAN AND GAVE HIM POST CATH INSTRUCTIONS OVER THE PHONE. TOLD HIM I WOULD BE SENDING THE WRITTEN INFORMATION WELL.
--- NOTE | 2019-08-04 08:45 | PC.NURSE ---
PHARMACY AT BEDSIDE COUNSELING PATIENT ON MEDICATIONS
--- NOTE | 2019-08-04 08:47 | HMH.PHACLD ---
Kay Harris has received discharge medication counseling on the following medications: PATIENT CURRENTLY TAKING ASPIRIN 81 MG DAILY. MD ADDING: ATORVASTATIN 40 MG HS BRILINTA 90 MG BID LISINOPRIL 5 MG BID FUROSEMIDE 40 MG DAILY (PATIENT ALREADY HAS MEDICATION AT HOME) MD CHANGING METOPROPOL 50 MG BID TO 25 MG BID.
== END 2019-08-04 09:41 | disposition home or self-care (01) | DRG 246 ==
LOC: ER 05:28 → 2ND 06:31
PROVIDERS: Internal Medicine; Admitting Provider Emergency Medicine; Emergency Provider Emergency Medicine; Visit Provider Family Medicine
PROC: 027034Z Dilation of Coronary Artery, One Artery with Drug-eluting Intraluminal Device, Percutaneous Approach (ICD-10-PCS; principal; 2019-08-03 10:00)
DX: I21.4 Non-ST elevation (NSTEMI) myocardial infarction (principal); I50.31 Acute diastolic (congestive) heart failure; I11.0 Hypertensive heart disease with heart failure; I25.10 Atherosclerotic heart disease of native coronary artery without angina pectoris; Z87.891 Personal history of nicotine dependence; Z82.49 Family history of ischemic heart disease and other diseases of the circulatory system; Z79.899 Other long term (current) drug therapy; E78.5 Hyperlipidemia, unspecified; Z88.8 Allergy status to other drugs, medicaments and biological substances
CPT/HCPCS: 36415; 71045; 80048; 80061; 82803; 83735; 84484; 85025; 85347; 85610; 92941; 93005; 93306; 93458; 94761; 96365; 96367; 99152; 99153; 99285; C1725; C1769; C1876; C9606; J1644; Q9967

== ENCOUNTER 2019-08-14 09:08 | Outpatient (RCR) | payer MEDICARE, OTHER, SELFPAY | END 2019-11-13 11:12 | disposition home or self-care (01) | LOC: PT 09:08 | PROVIDERS: Visit Provider Internal Medicine | DX: Z95.5 Presence of coronary angioplasty implant and graft (principal) | CPT/HCPCS: 93798 ==

== ENCOUNTER → 2019-08-30 15:36 | Outpatient (CLI) | payer MEDICARE, OTHER, SELFPAY | PROVIDERS: PCP Family Medicine; Visit Provider Internal Medicine Cardiovascular Disease | DX: G47.33 Obstructive sleep apnea (adult) (pediatric) (principal) | CPT/HCPCS: G0399 ==

== ENCOUNTER 2019-09-11 08:48 | Emergency (ER) | payer MEDICARE, OTHER, SELFPAY ==
[2019-09-11 08:56] VITALS: BP 140/74; PULSE 76; RESP 18; TEMP 36.9; O2SAT 97; BMI 41.2
--- NOTE | 2019-09-11 09:06 | XR_ITS ---
PROCEDURE: XR WRIST LT MIN 3V CLINICAL INDICATION: PAIN, REDNESS, SWELLING Pain redness and swelling COMPARISON: WRL3 WRIST-3 VIEWS-LT from 11/04/2014 FINDINGS: There are severe osteoarthritic changes of the 1st metacarpal-carpal joint with sub chondral cystic changes and bony hypertrophy at the 1st metacarpal-carpal joint. There is mild lateral subluxation of the 1st metacarpal. No fracture or dislocation. IMPRESSION: Severe osteoarthritis of the 1st metacarpal-carpal joint not significantly changed from 11/04 5th Dictated by: Guilherme Robbins MD 09/11/2019 09:37 Electronically signed by Guilherme Robbins MD in [place] 09/11/2019 09:37
--- NOTE | 2019-09-11 09:08 | PC.NURSE ---
RAD MADE AWARE OF WRIST XRAY
--- NOTE | 2019-09-11 09:10 | HMH.EDGENADL ---
ED Disposition Clinical Impression: Arthritis Disposition: Home, Self-Care Condition on Discharge: Good Instructions: DI for Wrist Pain Additional Instructions: use meds and call pcp for follow up Referrals: Danilo Durham MD [Primary Care Provider] - - Critical Care Critical Care Time: No Attestation: On 09/11/19, the high probability of a clinically significant, sudden or life threatening deterioration of the following system(s) required my full and direct attention, intervention and personal management. The time I documented below is in addition to time spent performing reported procedures but includes the following listed in this critical care notation. Medical Decision Making - Medical Records Medical records reviewed: Yes: I reviewed the patient's medical records. - Brennan Inquiry Pt receiving controlled substance: No Vital Signs: 09/11/19 08:56 Temperature 98.5 F Temperature Source Oral Pulse Rate [Right Radial] 76 Respiratory Rate 18 Blood Pressure [Right Arm] 140/74 Blood Pressure Mean [Right Arm] 96 Blood Pressure Source [Right Arm] Automatic Cuff Blood Pressure Position [Right Arm] Sitting 02 Sat by Pulse Oximetry 97 Oxygen Delivery Method Room Air - Lab Data Lab results reviewed: Yes: I reviewed the patient's lab results. Orders (Tests/Meds): ORDERS Category Date Time Status RA Latex Turbid. Stat Lab 09/11/19 09:49 Ordered Uric Acid Stat Lab 09/11/19 09:41 Ordered - Radiology Data #1 Image(s): Wrist Image Reviewed: Yes I reviewed the patient's radiology image Preliminary Findings: Abnormal (djd) General Adult HPI - General Chief complaint: PAIN Stated complaint: L wrist pain Time Seen by Provider: 09/11/19 09:10 Mode of Arrival: Ambulatory Source of Information: Patient, Medical Record Limitations: No Limitations Description of Symptoms (Recalled from ER Triage Doc. by RN): PT C/O LT WRIST PAIN, REDNESS, AND SWELLING. PT ADVISES THAT THE PAIN BEGAN APPROX 1 WEEK AGO WHEN SHE HEARD A POP IN HER WRIST. PT ADVISES THAT THE REDNESS AND SWELLING BEGAN THIS PAST WEDNESDAY. PT REPORTS THAT SHE HAD A SIMILAR EPISODE IN THE SAME WRIST A FEW YEARS AGO AND WAS DX WITH TENDONITIS. - History of Present Illness HPI narrative: swollen lt wrist with no def trauma and dec rom- has hx of osteo and gout Onset (ago): day(s) Location: upper extremity Severity: moderate Associated symptoms: denies other symptoms Treatments prior to arrival: none - Related Data Home Medications Medication Instructions Recorded Confirmed duloxetine 60 mg capsule,delayed 60 mg PO DAILY 30 Days #30 10/12/17 09/07/19 release levothyroxine 150 mcg tablet 150 mcg PO DAILY #90 tab 03/20/19 09/07/19 Aspirin [Aspirin 81mg EC Tab] 81 mg PO DAILY 08/03/19 09/07/19 Oxycodone HCl/Acetaminophen 7.5 mg PO Q6HP PRN 08/03/19 09/07/19 [Percocet 7.5-325 mg Tablet] furosemide 40 mg tablet 40 mg PO DAILY PRN tab 08/11/19 09/07/19 amlodipine 5 mg tablet 5 mg PO tab 09/07/19 09/07/19 febuxostat 80 mg tablet 80 mg PO tab 09/07/19 09/07/19 lisinopril 5 mg tablet 5 mg PO DAILY 09/07/19 09/07/19 metoprolol tartrate 50 mg tablet 25 mg PO BID tab 09/07/19 09/07/19 Previous Rx's Medication Instructions Recorded Atorvastatin Calcium [Lipitor 40mg 40 mg PO HS #30 tab 08/04/19 Tablet] Ticagrelor [Brilinta 90mg Tablet] 90 mg PO BID #60 tab 08/04/19 diclofenac sodium 1 % topical gel 4 g TOPICAL QID PRN 30 Days #100 g 09/07/19 Allergies Allergy/AdvReac Type Severity Reaction Status Date / Time iodine Allergy Unknown Verified 09/07/19 14:16 NSAIDS (Non-Steroidal Allergy Unknown Verified 09/07/19 17:11 Anti-Inflamma [facility] History - Hepatitis A Screen Drug use history?: No High risk sexual behaviors?: No History of sexually transmitted infection?: No Currently employed?: No Childcare worker?: No Do you have indoor plumbing?: Yes Do you have electricity?: Yes Attestation [facility]
--- NOTE | 2019-09-11 09:15 | PC.NURSE ---
PT TO RAD
[2019-09-11 10:20] VITALS: BP 154/88; PULSE 78; RESP 16; TEMP 36.6; O2SAT 98
[2019-09-11 10:26] LABS: Uric Acid 5.7 mg/dl (2.5-6.2)
[2019-09-11 10:52] LABS: Erythrocyte Sedimentation Rate 19 mm/hr (0-30)
[2019-09-12 13:41] LABS: RA Latex Turbid. <10.0 IU/mL (0.0-13.9)
[2019-09-13 12:05] LABS: Antinuclear Antibodies, IFA Negative (.)
== END 2019-09-11 10:21 | disposition home or self-care (01) ==
PROVIDERS: Emergency Provider Emergency Medicine; PCP Family Medicine
DX: M13.832 Other specified arthritis, left wrist (principal); I25.10 Atherosclerotic heart disease of native coronary artery without angina pectoris; E78.5 Hyperlipidemia, unspecified; I25.2 Old myocardial infarction; I10 Essential (primary) hypertension; F33.1 Major depressive disorder, recurrent, moderate; E03.9 Hypothyroidism, unspecified; Z90.09 Acquired absence of other part of head and neck; Z90.79 Acquired absence of other genital organ(s); Z90.49 Acquired absence of other specified parts of digestive tract; Z88.6 Allergy status to analgesic agent
CPT/HCPCS: 29125; 73110; 84550; 85651; 86038; 86431; 96372; 99284

== ENCOUNTER → 2019-11-17 07:57 | Outpatient (CLI) | payer MEDICARE, OTHER, SELFPAY ==
[2019-11-17 10:08] LABS: Chloride 106 mmol/L (98-107); Potassium 4.1 mmoL/L (3.5-5.1); Sodium 140 mmol/L (136-145)
[2019-11-17 10:09] LABS: Alanine Aminotransferase 19 U/L (12-78); Aspartate Amino Transferase 22 U/L (14-36); Bilirubin,Unconjugated 0.6 mg/dL (0.0-1.1)
[2019-11-17 10:10] LABS: Albumin Level 3.7 g/dl (3.5-5.0); Alkaline Phosphatase 112 U/L (38-126); Bilirubin,Direct 0.2 mg/dl (0.0-0.4); Bilirubin,Indirect 0.6 mg/dL (0.0-0.9); Bilirubin,Total 0.8 mg/dl (0.2-1.3); Cholesterol 135 mg/dl (140-200); HDL Cholesterol 45 mg/dl (40-60); Total Protein,Serum 6.6 g/dl (6.3-8.2); Triglycerides 179 mg/dl (30-150); VLDL Cholesterol 36 mg/dL (0-40)
[2019-11-17 10:11] LABS: Anion Gap 14.1 mEq/L (5-15); Blood Urea Nitrogen 34 mg/dl (7-17); Calcium 9.6 mg/dl (8.4-10.2); Carbon Dioxide 24 mmol/L (22.0-30.0); Estimated Glomerular Filt Rate 40 ml/min (>60); GFR (African American) 48 ML/MIN (>60); Glucose 143 mg/dl (74-100)
[2019-11-17 10:21] LABS: Direct LDL Cholesterol 61.93 mg/dL (100-129)
== END ==
PROVIDERS: Visit Provider Internal Medicine Cardiovascular Disease
DX: E78.5 Hyperlipidemia, unspecified (principal); I10 Essential (primary) hypertension; I25.10 Atherosclerotic heart disease of native coronary artery without angina pectoris; I51.9 Heart disease, unspecified; N28.9 Disorder of kidney and ureter, unspecified
CPT/HCPCS: 36415; 80048; 80061; 80076

== ENCOUNTER 2020-04-17 11:24 | Inpatient (IN) | payer MEDICARE, OTHER, SELFPAY ==
[2020-04-17] VITALS (13 sets, daily range): BP systolic 101–166; BP diastolic 38–103; PULSE 74–111; RESP 20–32; TEMP 38.2–38.8; O2SAT 94–100; BMI 40.3; BMI 40.4
--- NOTE | 2020-04-17 11:27 | XR_ITS ---
PROCEDURE: XR CHEST PORTABLE CLINICAL HISTORY: ams Altered mental status, altered level of consciousness, confusion, disorientation COMPARISON: CR CXR CHEST(2 VIEWS-NOT PORTABLE) from 06/20/2015 CR CXR2V XR chest 2V from 11/29/2017 CR XR CHEST PORTABLE from 08/03/2019 FINDINGS: The cardiomediastinal silhouette and pulmonary vascularity are within normal limits. Right hemidiaphragm is slightly elevated with vascular crowding in the right lung base. The remaining lungs are clear. No acute bony abnormalities. IMPRESSION: No acute findings. Dictated by: Guilherme Robbins MD 04/17/2020 13:25 Guilherme Robbins MD in [place] 04/17/2020 13:25
--- NOTE | 2020-04-17 11:28 | CT_ITS ---
PROCEDURE: CT HEAD/BRAIN WO CON CLINICAL INDICATION: ams Altered mental status, altered level of consciousness, confusion, disorientation Loss of consciousness COMPARISON: CT HEADWO CT head/brain wo con from 04/07/2018 TECHNIQUE: Axial images obtained. All CT scans at the facility use one or more dose reduction, viz: automated exposure control, ma/kV adjustment per patient size (including targeted exams where dose is matched to indication, i.e. head), or iterative reconstruction technique. FINDINGS: No midline shift, mass effect, intracranial hemorrhage, hydrocephalus, or extra-axial fluid collection is evident. There is generalized atrophy with hypoattenuation of the periventricular white matter consistent with microangiopathic changes.. There are old small left-sided lacunar infarctions. The calvarium has an unremarkable appearance. No mastoid effusion. No sinus air-fluid level. IMPRESSION: No acute intracranial finding Dictated by: Guilherme Robbins MD 04/17/2020 13:16 Guilherme Robbins MD in [place] 04/17/2020 13:16
--- NOTE | 2020-04-17 11:29 | ECG_ITS ---
APPROVED REPORT Exam: Resting ECG HR:95 bpm ECG Measurements Heart Rate 95 AXES MI 172 P 80 QRSd 80 QRS -19 QT 348 T 81 QTc 437 Conclusion Normal sinus rhythm Normal ECG Electronically signed by : Mickey Singh, 04/17/2020 17:10:10
--- NOTE | 2020-04-17 11:33 | HMH.EDGENADL ---
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 Severe sepsis shock status: with septic shock Qualified Code(s): A41.9 - Sepsis, unspecified organism UTI (urinary tract infection) Qualifiers: Urinary tract infection type: acute cystitis Hematuria presence: without hematuria Qualified Code(s): N30.00 - Acute cystitis without hematuria Altered mental status Qualifiers: Altered mental status type: delirium Qualified Code(s): R41.0 - Disorientation, unspecified Disposition: Admitted As Inpatient Condition on Discharge: Serious Referrals: PCP,No [Non-Staff] - Time of Disposition: 14:49 - Critical Care Critical Care Time: Yes Attestation: On 04/17/20, the high probability of a clinically significant, sudden or life threatening deterioration of the following system(s) required my full and direct attention, intervention and personal management. The time I documented below is in addition to time spent performing reported procedures but includes the following listed in this critical care notation. Total Critical Care Time: 40 Vital system(s) involved:: Central Nervous System, Respiratory Failure My critical care processes included: Assessment & monitoring of V/S, Initial and Re-exams, Data Review/Interpretation, Coordinating Care, Medication Orders and management, Documentation Medical Decision Making - Medical Records Medical records reviewed: Yes: I reviewed the patient's medical records. - Brennan Inquiry Pt receiving controlled substance: No Vital Signs: 04/17/20 11:24 04/17/20 11:52 04/17/20 12:00 Temperature 100.9 F H Temperature Source Rectal Pulse Rate [Left Radial] 84 92 H 99 H Respiratory Rate 32 H Blood Pressure [Right Arm] 165/74 H 119/60 124/68 Blood Pressure Mean [Right Arm] 104 79 86 Blood Pressure Source [Right Arm] Automatic Cuff Automatic Cuff Automatic Cuff Blood Pressure Position [Right Arm] Sitting Sitting Sitting 02 Sat by Pulse Oximetry 98 97 100 Oxygen Delivery Method Room Air Room Air Room Air 04/17/20 12:13 04/17/20 13:00 04/17/20 13:26 Temperature Temperature Source Pulse Rate [Left Radial] 99 H 104 H 102 H Respiratory Rate Blood Pressure [Right Arm] 166/103 H 106/82 L 101/64 L Blood Pressure Mean [Right Arm] 124 90 76 Blood Pressure Source [Right Arm] Automatic Cuff Automatic Cuff Automatic Cuff Blood Pressure Position [Right Arm] Sitting Sitting Sitting 02 Sat by Pulse Oximetry 94 L 95 97 Oxygen Delivery Method Room Air Room Air Room Air - Lab Data Lab Results 04/17/20 11:25: WBC 22.3 H*, RBC 5.11, Hgb 16.1, Hct 46.6, MCV 91.1, MCH 31.5 H, MCHC 34.6, RDW 13.4, Plt Count 225, MPV 8.6, Neut % (Auto) 94.3 H, Lymph % (Auto) 2.0 L, [place] % (Auto) 2.9, Eos % (Auto) 0.3, Baso % (Auto) 0.5, Neut # (Auto) 21.0 H, Lymph # (Auto) 0.4 L, [place] # (Auto) 0.6, Eos # (Auto) 0.1, Baso # (Auto) 0.1, Total Counted 100, Neutrophils % (Manual) 89 H, Lymphocytes % (Manual) 5 L, Monocytes % (Manual) 4, Eosinophils % (Manual) 2, Platelet Estimate Normal, RBC Morphology Normal 04/17/20 11:25: Sodium 137, Potassium 4.9, Chloride 103, Carbon Dioxide 17 L, Anion Gap 21.9 H, BUN 48 H, Creatinine 2.10 H, Estimated GFR 23 L, Est GFR ( Amer) 28 L, Glucose 298 H, Calcium 10.0, Total Bilirubin 1.1, AST 65 H, ALT 40, Alkaline Phosphatase 119, Total Creatine Kinase 2847 H*, Troponin I 0.13 H, Total Protein 7.6, Albumin 4.1, Globulin 3.5 H, Albumin/Globulin Ratio 1.2, Lipase 67 04/17/20 11:25: Lactate 6.4 H 04/17/20 11:25: SARS-CoV-2 IgG Ab (Rapid) Negative, SARS-CoV-2 IgM Ab (Rapid) Negative 04/17/20 11:25: Procalcitonin 21.5 H 04/17/20 11:43: Urine Color Yellow, Urine Appearance Clear, Urine pH 5.0, Ur Specific [place] 1.020, Urine Protein 2+, Urine Glucose (UA) Trace, Urine Ketones Negative, Urine Blood 3+, Urine
[2020-04-17 11:40] LABS: Basophils # 0.1 K/mm3 (0-0.2); Basophils % 0.5 % (0.1-2.0); Eosinophils # 0.1 K/mm3 (0.0-0.4); Eosinophils % 0.3 % (0.1-12.0); Hematocrit 46.6 % (37.0-47.0); Hemoglobin 16.1 g/dL (12.2-16.2); Lymphocytes # 0.4 K/mm3 (0.7-4.5); Mean Corpuscular HGB Conc 34.6 g/dL (31.8-35.4); Mean Corpuscular Hemoglobin 31.5 pg (27.0-31.2); Mean Corpuscular Volume 91.1 fl (81-99); Mean Platelet Volume 8.6 fl (7.4-10.4); Monocytes # 0.6 K/mm3 (0.1-1.0); Monocytes % 2.9 % (1.7-9.3); Neutrophils % 94.3 % (37.0-80.0); Platelet Count 225 K/mm3 (142-424); Red Blood Count 5.11 M/mm3 (4.20-5.40); Red Cell Distribution Width 13.4 % (11.5-17.5); White Blood Count 22.3 K/mm3 (4.8-10.8)
[2020-04-17 11:41] LABS: MANUAL DIFFERENTIAL MANUAL DIFFERENTIAL (MANUAL DIFF)
[2020-04-17 11:48] LABS: Eosinophils % 2 % (0-3); Lymphocytes % 5 % (10-50); Monocytes % 4 % (2-9); Neutrophils % 89 % (42-76); Platelet Estimate Normal; RBC Morphology Normal; Total Cells Counted 100
[2020-04-17 11:49] LABS: Microscopic, Urine URINE MICROSCOPIC (MICROSCOPIC)
[2020-04-17 11:52] LABS: Appearance,Urine CLEAR (Clear); Bilirubin,Urine Negative (Negative); Blood, Urine 3+ (Negative); Color,Urine YELLOW (Yellow); Glucose,Urine (UA) TRACE (Negative); Ketones,Urine Negative (Negative); Leukocyte Esterase,Urine Negative (Negative); Nitrate,Urine POSITIVE (Negative); Protein,Urine 2+ (Negative); Urobilinogen,Urine 0.2 EU/dl (0.2)
[2020-04-17 11:53] LABS: Alanine Aminotransferase 40 U/L (12-78); Albumin Level 4.1 g/dl (3.5-5.0); Albumin/Globulin Ratio 1.2 (1.1-1.8); Alkaline Phosphatase 119 U/L (38-126); Anion Gap 21.9 mEq/L (5-15); Aspartate Amino Transferase 65 U/L (14-36); Bilirubin,Total 1.1 mg/dl (0.2-1.3); Blood Urea Nitrogen 48 mg/dl (7-17); Carbon Dioxide 17 mmol/L (22.0-30.0); Chloride 103 mmol/L (98-107); Estimated Glomerular Filt Rate 23 ml/min (>60); GFR (African American) 28 ML/MIN (>60); Globulin 3.5 g/dL (1.3-3.2); Glucose 298 mg/dl (74-100); Lipase 67 U/L (23-300); Potassium 4.9 mmoL/L (3.5-5.1); Sodium 137 mmol/L (136-145); Total Protein,Serum 7.6 g/dl (6.3-8.2)
[2020-04-17 11:55] LABS: Lactic Acid 6.4 mmol/L (0.7-2.1)
--- NOTE | 2020-04-17 11:55 | PC.NURSE ---
JESUS MCKEON notified of critical lactic acid
[2020-04-17 12:05] LABS: Troponin I 0.13 ng/ml (0.00-0.034)
[2020-04-17 12:07] LABS: Creatine Kinase 2847 U/L (30-135)
[2020-04-17 12:09] LABS: Procalcitonin 21.5 ng/mL (0.0-2.0)
--- NOTE | 2020-04-17 12:16 | HMH.PHACONS ---
- Pharmacy Consult Date: 04/17/20 Time: 12:16 Referring provider: DR. YOUNG Reason for Consult:: VANCOMYCIN DOSING Allergies and ADEs:: Allergies Allergy/AdvReac Type Severity Reaction Status Date / Time iodine Allergy Unknown Verified 04/17/20 12:14 NSAIDS (Non-Steroidal Allergy Unknown Verified 04/17/20 12:14 Anti-Inflamma Home Medications:: Home Medications Medication Instructions Recorded Confirmed Type duloxetine 60 mg capsule,delayed 60 mg PO DAILY 30 Days #30 10/12/17 11/17/19 History release levothyroxine 150 mcg tablet 150 mcg PO DAILY #90 tab 03/20/19 11/17/19 History Aspirin [Aspirin 81mg EC Tab] 81 mg PO DAILY 08/03/19 11/17/19 History Atorvastatin Calcium [Lipitor 40mg 40 mg PO HS #30 tab 08/04/19 11/17/19 Rx Tablet*] Ticagrelor [Brilinta 90mg 90 mg PO BID #60 tab 08/04/19 11/17/19 Rx Tablet] diclofenac sodium 1 % topical gel 4 g TOPICAL QID PRN 30 Days #100 g 09/07/19 11/17/19 Rx amlodipine 5 mg tablet 5 mg PO DAILY tab 11/17/19 11/17/19 History febuxostat 80 mg tablet 80 mg PO DAILY tab 11/17/19 11/17/19 History hydrochlorothiazide 25 mg tablet 25 mg PO QDAY #30 tab 11/17/19 11/17/19 Rx lisinopril 10 mg tablet 10 mg PO DAILY #30 tab 11/17/19 11/17/19 Rx spironolactone 25 mg tablet 25 mg PO DAILY #30 tab 11/17/19 11/17/19 Rx metoprolol succinate 50 mg 50 mg PO DAILY #90 tab 12/15/19 Rx tablet,extended release 24 hr Height: 1.68 m Weight: 113.469 kg Laboratory Results:: Laboratory Results - last 24 hr 04/17/20 11:25: WBC 22.3 H*, RBC 5.11, Hgb 16.1, Hct 46.6, MCV 91.1, MCH 31.5 H, MCHC 34.6, RDW 13.4, Plt Count 225, MPV 8.6, Neut % (Auto) 94.3 H, Lymph % (Auto) 2.0 L, [place] % (Auto) 2.9, Eos % (Auto) 0.3, Baso % (Auto) 0.5, Neut # (Auto) 21.0 H, Lymph # (Auto) 0.4 L, [place] # (Auto) 0.6, Eos # (Auto) 0.1, Baso # (Auto) 0.1, Total Counted 100, Neutrophils % (Manual) 89 H, Lymphocytes % (Manual) 5 L, Monocytes % (Manual) 4, Eosinophils % (Manual) 2, Platelet Estimate Normal, RBC Morphology Normal 04/17/20 11:25: Sodium 137, Potassium 4.9, Chloride 103, Carbon Dioxide 17 L, Anion Gap 21.9 H, BUN 48 H, Creatinine 2.10 H, Estimated GFR 23 L, Est GFR ( Amer) 28 L, Glucose 298 H, Calcium 10.0, Total Bilirubin 1.1, AST 65 H, ALT 40, Alkaline Phosphatase 119, Total Creatine Kinase 2847 H*, Troponin I 0.13 H, Total Protein 7.6, Albumin 4.1, Globulin 3.5 H, Albumin/Globulin Ratio 1.2, Lipase 67 04/17/20 11:25: Lactate 6.4 H 04/17/20 11:25: Procalcitonin 21.5 H 04/17/20 11:43: Urine Color Yellow, Urine Appearance Clear, Urine pH 5.0, Ur Specific [place] 1.020, Urine Protein 2+, Urine Glucose (UA) Trace, Urine Ketones Negative, Urine Blood 3+, Urine Nitrate Positive, Urine Bilirubin Negative, Urine Urobilinogen 0.2, Ur Leukocyte Esterase Negative Medical History: Reports:: Coronary Artery Disease, Cerebrovascular Accident, Deep Vein Thrombosis, Depression, Hyperlipidemia, Hypertension, Kidney Stones, Myocardial Infarction, Peripheral Artery Disease Denies:: Cancer, Diabetes Mellitus Type 1, Diabetes Mellitus Type 2, Internal Pacemaker, MRSA Assessment and Plan - Assessment and plan all Dx Assessment and Plan for all problems:: Pharmacokinetic dosing service Patient: Floor: Age: 75 yo Serum creatinine: 2.1 mg/dL Height: 66.0 Inches Weight (kg): 113.5 IBW (kg): 59.30 Dosing wt(kg): 113.5 Estimated Creatinine clearance (ml/min): 21.3 CRCL method: Cockcroft and Gault using ibw(default). Drug selected: Vancomycin Loading dose (mg): 0 Vd (liters): 90.8 (factor used: 0.8 L/kg) [place] (hr-1): 0.022 Half life (hrs): 31.51 Recommended dose: 2000 mg Interval: 36 hrs Infusion time (hrs): 2.0 Predicted peak (mcg/mL): 39.4 Predicted trough (mcg/mL): 18.65 Total body weight is being used for vancomycin dosing. Recommendations: Give Vancomycin 2000 mg q 36 hrs with an expe
--- NOTE | 2020-04-17 12:24 | PC.NURSE ---
Pt unable to tell me home medications. No list with her and external medication list is from November.
[2020-04-17 12:26] LABS: Coronavirus 19 IgG Antibody Negative (Negative); Coronavirus 19 IgM Antibody Negative (Negative)
--- NOTE | 2020-04-17 12:29 | PC.NURSE ---
Pt to rad.
--- NOTE | 2020-04-17 13:00 | PC.NURSE ---
Pt returned from rad.
[2020-04-17 13:11] LABS: Squamous Epithelial Cell,Urine Occasional #/hpf (0-5)
--- NOTE | 2020-04-17 13:12 | CT_ITS ---
PROCEDURE: CT ABDOMEN PELVIS WO CON CLINICAL INDICATION: UTI Urinary tract infection COMPARISON: CT ABDPELW/O CT ABD PELVIS W/O CONTRAST from 08/20/2016 TECHNIQUE: Axial images obtained with sagittal and coronal reformats. All CT scans at the facility use one or more dose reduction, viz: automated exposure control, ma/kV adjustment per patient size (including targeted exams where dose is matched to indication, i.e. head), or iterative reconstruction technique. FINDINGS: Motion artifact obscures fine detail. The liver, gallbladder, spleen, and right adrenal gland are grossly unremarkable. Left adrenal gland is somewhat enlarged but maintains an adrenal form shape. There is severe atrophy of the left kidney. No right renal calculi. No ureteral calculi. Minimal ectasia of the mid abdominal aorta noted at 2.5 cm. No intestinal obstruction or free air. The pancreas has an unremarkable appearance. No evidence of appendicitis or diverticulitis. There is a Marte catheter present within a decompressed urinary bladder. There postsurgical changes of the lumbar spine with inter pedicular screws at L4-5. IMPRESSION: No acute finding Dictated by: Guilherme Robbins MD 04/17/2020 14:41 Guilherme Robbins MD in [facility] 04/17/2020 14:43
--- NOTE | 2020-04-17 13:13 | CT_ITS ---
PROCEDURE: CT CHEST WO CON CLINICAL INDICATION: cough COMPARISON: No exams were available for comparison TECHNIQUE: Axial images obtained with sagittal and coronal reformats. All CT scans at the facility use one or more dose reduction, viz: automated exposure control, ma/kV adjustment per patient size (including targeted exams where dose is matched to indication, i.e. head), or iterative reconstruction technique. FINDINGS: There is diffuse coronary artery calcification. Heart size is normal. Motion artifact somewhat obscures fine detail. No lobar consolidation or collapse. 4 mm nodules present in the fissural region on the left. No acute bony findings. No effusions or infiltrates. IMPRESSION: 1. Motion artifact obscures fine detail. 2. Coronary artery disease. 3. No acute finding. Dictated by: Guilherme Robbins MD 04/17/2020 14:38 Guilherme Robbins MD in [facility] 04/17/2020 14:38
--- NOTE | 2020-04-17 13:50 | PC.NURSE ---
Pt repositioned at this time.
--- NOTE | 2020-04-17 13:51 | PC.NURSE ---
Advised MD to complete tissue reprofusion assessment
--- NOTE | 2020-04-17 13:57 | PC.NURSE ---
Pt gone to radiology
[2020-04-17 14:03] LABS: VBG Base Excess -13.5 mmol/L (-2.4-2.3); VBG HCO3 14.6 mmol/L (23-30); VBG Oxygen Saturation 52.4 % (50-70); VBG PCO2 38.5 mmol/L (35-51); VBG PO2 30.4 mmol/L (28-40); VBG Total CO2 15.8 mmol/L (23-27)
--- NOTE | 2020-04-17 14:23 | PC.NURSE ---
Pt returned from radiology
--- NOTE | 2020-04-17 14:31 | PC.NURSE ---
lab at bedside vs delayed. will assess when lab is finished.
--- NOTE | 2020-04-17 14:52 | PC.NURSE ---
calling dr burt at this time.
--- NOTE | 2020-04-17 14:54 | PC.NURSE ---
dr winter speaking with dr burt.
--- NOTE | 2020-04-17 14:56 | PC.NURSE ---
called care management for admission
[2020-04-17 15:36] LABS: Reflex Lactic Add Lactic Reflex
--- NOTE | 2020-04-17 15:38 | PC.NURSE ---
notified floor pt ready for admission
--- NOTE | 2020-04-17 16:28 | HMH.PHACONS ---
- Pharmacy Consult Date: 04/17/20 Time: 16:28 Referring provider: DR. JENNINGS Reason for Consult:: VANCOMYCIN DOSING Allergies and ADEs:: Allergies Allergy/AdvReac Type Severity Reaction Status Date / Time iodine Allergy Unknown Verified 04/17/20 12:14 NSAIDS (Non-Steroidal Allergy Unknown Verified 04/17/20 12:14 Anti-Inflamma Home Medications:: Home Medications Medication Instructions Recorded Confirmed Type duloxetine 60 mg capsule,delayed 60 mg PO DAILY 30 Days #30 10/12/17 11/17/19 History release levothyroxine 150 mcg tablet 150 mcg PO DAILY #90 tab 03/20/19 11/17/19 History Aspirin [Aspirin 81mg EC Tab] 81 mg PO DAILY 08/03/19 11/17/19 History Atorvastatin Calcium [Lipitor 40mg 40 mg PO HS #30 tab 08/04/19 11/17/19 Rx Tablet*] Ticagrelor [Brilinta 90mg 90 mg PO BID #60 tab 08/04/19 11/17/19 Rx Tablet] diclofenac sodium 1 % topical gel 4 g TOPICAL QID PRN 30 Days #100 g 09/07/19 11/17/19 Rx amlodipine 5 mg tablet 5 mg PO DAILY tab 11/17/19 11/17/19 History febuxostat 80 mg tablet 80 mg PO DAILY tab 11/17/19 11/17/19 History hydrochlorothiazide 25 mg tablet 25 mg PO QDAY #30 tab 11/17/19 11/17/19 Rx lisinopril 10 mg tablet 10 mg PO DAILY #30 tab 11/17/19 11/17/19 Rx spironolactone 25 mg tablet 25 mg PO DAILY #30 tab 11/17/19 11/17/19 Rx metoprolol succinate 50 mg 50 mg PO DAILY #90 tab 12/15/19 Rx tablet,extended release 24 hr Height: 1.68 m Weight: 113.469 kg Laboratory Results:: Laboratory Results - last 24 hr 04/17/20 11:25: WBC 22.3 H*, RBC 5.11, Hgb 16.1, Hct 46.6, MCV 91.1, MCH 31.5 H, MCHC 34.6, RDW 13.4, Plt Count 225, MPV 8.6, Neut % (Auto) 94.3 H, Lymph % (Auto) 2.0 L, [place] % (Auto) 2.9, Eos % (Auto) 0.3, Baso % (Auto) 0.5, Neut # (Auto) 21.0 H, Lymph # (Auto) 0.4 L, [place] # (Auto) 0.6, Eos # (Auto) 0.1, Baso # (Auto) 0.1, Total Counted 100, Neutrophils % (Manual) 89 H, Lymphocytes % (Manual) 5 L, Monocytes % (Manual) 4, Eosinophils % (Manual) 2, Platelet Estimate Normal, RBC Morphology Normal 04/17/20 11:25: Sodium 137, Potassium 4.9, Chloride 103, Carbon Dioxide 17 L, Anion Gap 21.9 H, BUN 48 H, Creatinine 2.10 H, Estimated GFR 23 L, Est GFR ( Amer) 28 L, Glucose 298 H, Calcium 10.0, Total Bilirubin 1.1, AST 65 H, ALT 40, Alkaline Phosphatase 119, Total Creatine Kinase 2847 H*, Troponin I 0.13 H, Total Protein 7.6, Albumin 4.1, Globulin 3.5 H, Albumin/Globulin Ratio 1.2, Lipase 67 04/17/20 11:25: Lactate 6.4 H 04/17/20 11:25: SARS-CoV-2 IgG Ab (Rapid) Negative, SARS-CoV-2 IgM Ab (Rapid) Negative 04/17/20 11:25: Procalcitonin 21.5 H 04/17/20 11:43: Urine Color Yellow, Urine Appearance Clear, Urine pH 5.0, Ur Specific [place] 1.020, Urine Protein 2+, Urine Glucose (UA) Trace, Urine Ketones Negative, Urine Blood 3+, Urine Nitrate Positive, Urine Bilirubin Negative, Urine Urobilinogen 0.2, Ur Leukocyte Esterase Negative, Urine RBC 10-20, Urine WBC 3-5, Ur Squamous Epith Cells Occasional 04/17/20 13:02: VBG pH 7.20 L, VBG pCO2 38.5, VBG pO2 30.4, VBG HCO3 14.6 L, VBG Total CO2 15.8 L, VBG O2 Saturation 52.4, VBG Base Excess -13.5 L Medical History: Reports:: Coronary Artery Disease, Cerebrovascular Accident, Deep Vein Thrombosis, Depression, Hyperlipidemia, Hypertension, Kidney Stones, Myocardial Infarction, Peripheral Artery Disease Denies:: Cancer, Diabetes Mellitus Type 1, Diabetes Mellitus Type 2, Internal Pacemaker, MRSA Assessment and Plan - Assessment and plan all Dx Assessment and Plan for all problems:: BASED ON PATIENT FACTORS, RECOMMEND VANCOMYCIN 2 GM IV Q36H. PHARMACY WILL FOLLOW DAILY AND ADJUST APPROPRIATE.
[2020-04-17 16:52] LABS: Lactic Acid Follow Up (RFLX 1) 4.1 mmol/L (0.7-2.1)
--- NOTE | 2020-04-17 17:17 | HMH.HP ---
*Admission Date: 04/17/20 *Chief complaint: Fall at home, mental status changes *History of present illness: 75-year-old female brought to the emergency department via EMS after being found down at home by her grandson. Some of the history is taken from her son who is present. He reports that a neighbor went to offer to go to the grocery for the patient when the patient would not answer the door. Patient's son was contacted and he was unable to get into the house as he does not have a hyde. He was able to lift his son through a window that they were able to open and the grandson found the patient on the floor and confused. EMS was contacted and brought the patient to the hospital. Patient is quite confused and is unable to answer questions with meaningful responses. She has been found to have a urinary tract infection, sepsis, rhabdomyolysis. Patient's been admitted for IV antibiotics and IV fluids as well as telemetry monitoring due to the unknown nature of her fall. [facility] History I have reviewed the patient's past medical history: Yes Medical History: Reports:: Coronary Artery Disease, Cerebrovascular Accident, Deep Vein Thrombosis, Depression, Hyperlipidemia, Hypertension, Kidney Stones, Myocardial Infarction, Peripheral Artery Disease Denies:: Cancer, Diabetes Mellitus Type 1, Diabetes Mellitus Type 2, Internal Pacemaker, MRSA *Have you ever received a pneumonia vaccine?: No *Have you received a flu vaccine this season?: No Other Medical History: Reports: Arthritis, Hypothyroidism, Sinus Problems, Thyroid Disease, Other Laterality Cases: Bilateral: Tonsillectomy, Other Other Surgeries: Yes: Angiogram, Appendectomy, Cardiac Catheterization, Colonoscopy, Coronary Stent, Dilation and Curettage (x2), Hysterectomy-Total. No: Pacemaker Amputation: No Fractures: Yes (Right ankle. ) - *Social History Smoking Status: Never smoker # Packs/Day (cigarettes): 1 Alcohol Intake: never Alcohol Intake Frequency:: other Substance Use Type: denies use *Occupational Status:: retired Housing: house Household Members: spouse *Travel in the last 8 weeks: None - Psychiatric History Pschychiatric History:: Reports:: Depression Family Hx:: Heart Attack, Hyperlipidemia, Hypertension, Stroke, Coronary Artery Disease, Diabetes Review of Systems - Review of Systems Review of systems:: unable to obtain - *Neurologic Reports weakness, Denies dizziness, Denies headache(s), Denies numbness Meds Home Medications Medication Instructions Recorded Confirmed Type duloxetine 60 mg capsule,delayed 60 mg PO DAILY 30 Days #30 10/12/17 11/17/19 History release levothyroxine 150 mcg tablet 150 mcg PO DAILY #90 tab 03/20/19 11/17/19 History Aspirin [Aspirin 81mg EC Tab] 81 mg PO DAILY 08/03/19 11/17/19 History Atorvastatin Calcium [Lipitor 40mg 40 mg PO HS #30 tab 08/04/19 11/17/19 Rx Tablet*] Ticagrelor [Brilinta 90mg 90 mg PO BID #60 tab 08/04/19 11/17/19 Rx Tablet] diclofenac sodium 1 % topical gel 4 g TOPICAL QID PRN 30 Days #100 g 09/07/19 11/17/19 Rx amlodipine 5 mg tablet 5 mg PO DAILY tab 11/17/19 11/17/19 History febuxostat 80 mg tablet 80 mg PO DAILY tab 11/17/19 11/17/19 History hydrochlorothiazide 25 mg tablet 25 mg PO QDAY #30 tab 11/17/19 11/17/19 Rx lisinopril 10 mg tablet 10 mg PO DAILY #30 tab 11/17/19 11/17/19 Rx spironolactone 25 mg tablet 25 mg PO DAILY #30 tab 11/17/19 11/17/19 Rx metoprolol succinate 50 mg 50 mg PO DAILY #90 tab 12/15/19 Rx tablet,extended release 24 hr Allergies Allergy/AdvReac Type Severity Reaction Status Date / Time iodine Allergy Unknown Verified 04/17/20 12:14 NSAIDS (Non-Steroidal Allergy Unknown Verified 04/17/20 12:14 Anti-Inflamma Exam Vital signs and Labs for Last 24 Hours: Temp Pulse Resp BP Pulse Ox 100.7 F H 74 26 H 139/75 98 04/17/20 16:15 04/17/20 16:15 04/17/20 16:15 04/17/20 16:15 04/17/20 16:00 Laboratory Results - last 24 hr 04/17/20 11:25: W
[2020-04-17 18:35] LABS: Reflex Lactic (2 hrs) Add Lactic Reflex
[2020-04-17 19:27] LABS: Lactic Acid Follow up (RFLX 2) 3.7 mmol/L (0.7-2.1)
--- NOTE | 2020-04-17 20:03 | PC.NURSE ---
T WAS UNABLE TO COMPLETE ADMISSION QUESTIONS R/T CONFUSION
--- NOTE | 2020-04-17 20:07 | PC.NURSE ---
PT IS CONFUSED BUT WILL TELL HER NAME IF ASKED A FEW TIMES, HAS REMOVED MULTIPLE IV'S SINCE ADMISSION, MITTS ARE IN PLACE A THIS TIME, SHE HAS RECEIVED THE SEPSIS BOLUS IN THE ER, HER VITAL SIGNS HAVE BEEN WNL SINCE ARRIVAL TO FLOOR, SHE CAN BE TURNED IN THE BED BUT WILL RETURN TO HER RIGHT SIDE. THIS NURSE WAS UNABLE TO COMPLETE ADMISSION QUESTIONS R/T TO PT CONFUSION, I DID SPEAK WITH HER SON (HEIDY)THAT WAS AT THE HOSPITAL WHEN THE PT WAS ADMITTED BUT HE SAID THAT HE WAS UNABLE TO CONFIRM HER HISTORY.
[2020-04-18] VITALS: BP 116/74; PULSE 100; PULSE 114; RESP 24; TEMP 36.9; O2SAT 92
[2020-04-18 04:00] VITALS: BP 111/44; PULSE 100; PULSE 90; RESP 24; TEMP 36.8; O2SAT 94
--- NOTE | 2020-04-18 04:30 | PC.NURSE ---
pt has had no acute changes. remains confused and restless this shift. with care pt became combative earlier in shift. at this time pt responds to name and will answer yes and no questions. iv patent and infusing per order. workman draining cesario urine. telemetry reads as Sinus tach. redness noted to lle with some swelling. redness to abdominal folds and under right breast. unable to obtain weight due to patient mental status and nonweigh bed. call light in reach. vss. will continue to monitor pt condition.
[2020-04-18 07:17] VITALS: BP 115/49; PULSE 99; RESP 22; TEMP 36.6; O2SAT 94
--- NOTE | 2020-04-18 07:25 | HMH.ACPN2 ---
Internal Medicine - PN: Subj *Date: 04/18/20 *Time: 07:25 Interval history: Restless overnight but seems to be more alert this morning and is at least oriented to person and place. She still has no memory of the events that led to her hospitalization Exam Vital signs and Labs for Last 24 Hours: Temp Pulse Resp BP Pulse Ox 98.3 F 100 H 22 111/44 L 94 L 04/18/20 04:00 04/18/20 04:00 04/18/20 07:17 04/18/20 04:00 04/18/20 04:00 Laboratory Results - last 24 hr 04/17/20 11:25: WBC 22.3 H*, RBC 5.11, Hgb 16.1, Hct 46.6, MCV 91.1, MCH 31.5 H, MCHC 34.6, RDW 13.4, Plt Count 225, MPV 8.6, Neut % (Auto) 94.3 H, Lymph % (Auto) 2.0 L, [place] % (Auto) 2.9, Eos % (Auto) 0.3, Baso % (Auto) 0.5, Neut # (Auto) 21.0 H, Lymph # (Auto) 0.4 L, [place] # (Auto) 0.6, Eos # (Auto) 0.1, Baso # (Auto) 0.1, Total Counted 100, Neutrophils % (Manual) 89 H, Lymphocytes % (Manual) 5 L, Monocytes % (Manual) 4, Eosinophils % (Manual) 2, Platelet Estimate Normal, RBC Morphology Normal 04/17/20 11:25: Sodium 137, Potassium 4.9, Chloride 103, Carbon Dioxide 17 L, Anion Gap 21.9 H, BUN 48 H, Creatinine 2.10 H, Estimated GFR 23 L, Est GFR ( Amer) 28 L, Glucose 298 H, Calcium 10.0, Total Bilirubin 1.1, AST 65 H, ALT 40, Alkaline Phosphatase 119, Total Creatine Kinase 2847 H*, Troponin I 0.13 H, Total Protein 7.6, Albumin 4.1, Globulin 3.5 H, Albumin/Globulin Ratio 1.2, Lipase 67 04/17/20 11:25: Lactate 6.4 H 04/17/20 11:25: SARS-CoV-2 IgG Ab (Rapid) Negative, SARS-CoV-2 IgM Ab (Rapid) Negative 04/17/20 11:25: Procalcitonin 21.5 H 04/17/20 11:43: Urine Color Yellow, Urine Appearance Clear, Urine pH 5.0, Ur Specific [place] 1.020, Urine Protein 2+, Urine Glucose (UA) Trace, Urine Ketones Negative, Urine Blood 3+, Urine Nitrate Positive, Urine Bilirubin Negative, Urine Urobilinogen 0.2, Ur Leukocyte Esterase Negative, Urine RBC 10-20, Urine WBC 3-5, Ur Squamous Epith Cells Occasional 04/17/20 13:02: VBG pH 7.20 L, VBG pCO2 38.5, VBG pO2 30.4, VBG HCO3 14.6 L, VBG Total CO2 15.8 L, VBG O2 Saturation 52.4, VBG Base Excess -13.5 L 04/17/20 16:30: Lactate 4.1 H 04/17/20 19:10: Lactate 3.7 H I & O for Last 24 hours: Intake & Output 04/15/20 04/16/20 04/17/20 04/18/20 11:59 11:59 11:59 11:59 Intake Total 1199 / 1199 Output Total 850 / 850 Balance 349 / 349 Weight 250 lb 250 lb 2.49 oz Microbiology Reports for the Last 24 Hours: Microbiology 04/17/20 11:25 Blood Blood Culture - Preliminary 04/17/20 11:25 Blood Blood Culture - Preliminary - Constitutional no acute distress - *Routine HEENT Exam Head: Present: normocephalic Eye: Present: EOMI, PERRL ENT: Present: mucous membranes moist - *Routine Neck Exam Present: supple. Absent: lymphadenopathy - *Routine Respiratory Exam Present: CTA bilaterally - *Routine Cardiovascular Exam Present: RRR - *Routine Abdominal Exam Present: soft, normoactive bowel sounds. Absent: tenderness - *Routine Extremities Exam Absent: cyanosis, clubbing, edema Comments: Erythema and tenderness of the anterior left loving with slight edema - *Routine Skin Exam Present: warm. Absent: rash - *Routine Neurological Exam Oriented to person and place only. 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
--- NOTE | 2020-04-18 07:34 | HMH.PHAVTE ---
[facility] Pharmacy VTE Monitoring - Patient Demographics Admission date: 04/17/20 Report Date: 04/18/20 Time: 07:34 Allergies/Adverse Reactions: Patient Allergies iodine Allergy (Unknown, Verified 04/17/20 12:14) NSAIDS (Non-Steroidal Anti-Inflamma Allergy (Unknown, Verified 04/17/20 12:14) Height: 1.68 m Weight: 113.469 kg Patient Problems: Current Active Problems Sepsis (Acute) UTI (urinary tract infection) (Acute) Altered mental status (Acute) Acute kidney injury (Acute) Rhabdomyolysis (Acute) Morbid obesity with BMI of 40.0-44.9, adult (Chronic) - VTE Risk Labs: VTE Related Lab Results Hgb 16.1 g/dL (12.2-16.2) 04/17/20 11:25 Hct 46.6 % (37.0-47.0) 04/17/20 11:25 Plt Count 225 K/mm3 (142-424) 04/17/20 11:25 BUN 48 mg/dl (7-17) H 04/17/20 11:25 Creatinine 2.10 mg/dl (0.52-1.04) H 04/17/20 11:25 Was VTE Risk Assessment Performed: Yes VTE Score: 4 VTE Risk Level: Low Risk - Prophylaxis VTE Prophylaxis Ordered?: Yes Types of VTE Prophylaxis: TEDS Knee High Location of Applied Device: Bilateral Lower Extremeties
[2020-04-18 07:37] LABS: Basophils # 0.1 K/mm3 (0-0.2); Basophils % 0.5 % (0.1-2.0); Eosinophils # 0.1 K/mm3 (0.0-0.4); Eosinophils % 0.4 % (0.1-12.0); Hematocrit 43.6 % (37.0-47.0); Lymphocytes # 1.1 K/mm3 (0.7-4.5); Mean Corpuscular HGB Conc 32.5 g/dL (31.8-35.4); Mean Corpuscular Volume 92.4 fl (81-99); Mean Platelet Volume 8.8 fl (7.4-10.4); Monocytes # 0.5 K/mm3 (0.1-1.0); Monocytes % 3.3 % (1.7-9.3); Neutrophils # 13.4 K/mm3 (1.8-7.8); Neutrophils % 88.7 % (37.0-80.0); Platelet Count 135 K/mm3 (142-424); Red Blood Count 4.72 M/mm3 (4.20-5.40); Red Cell Distribution Width 13.2 % (11.5-17.5); White Blood Count 15.1 K/mm3 (4.8-10.8)
[2020-04-18 07:38] LABS: MANUAL DIFFERENTIAL MANUAL DIFFERENTIAL (MANUAL DIFF)
[2020-04-18 07:39] LABS: Hemoglobin 14.2 g/dL (12.2-16.2)
[2020-04-18 08:06] LABS: Anion Gap 17.9 mEq/L (5-15); Blood Urea Nitrogen 54 mg/dl (7-17); Carbon Dioxide 14 mmol/L (22.0-30.0); Chloride 112 mmol/L (98-107); Creatinine Clearance Estimated 50 mL/min (50-200); Estimated Glomerular Filt Rate 29 ml/min (>60); GFR (African American) 35 ML/MIN (>60); Glucose 192 mg/dl (74-100); Potassium 4.9 mmoL/L (3.5-5.1); Sodium 139 mmol/L (136-145)
[2020-04-18 08:40] LABS: Calcium 8.7 mg/dl (8.4-10.2)
[2020-04-18 09:52] LABS: Lymphocytes % 15 % (10-50); Monocytes % 4 % (2-9); Neutrophils % 78 % (42-76); Platelet Estimate Slight Decrease; RBC Morphology Normal; Total Cells Counted 100
--- NOTE | 2020-04-18 11:35 | HMH.PHAINT ---
MEDICATION RECONCILIATION COMPLETED ON PATIENT USING EXTERNAL FILL HISTORY FORM PHARMACY AND LIST FROM PCP/CARDIOLOGY OFFICES. -ALLISON SPRINGERD
--- NOTE | 2020-04-18 11:50 | HMH.PTEV ---
Physical Therapy Evaluation Rehab PT IP Evaluation Start: 04/18/20 07:28 Freq: ONCE Status: Active Protocol: Document 04/18/20 11:00 ALEXDRE (Rec: 04/18/20 11:49 ALEXDRE [id number]) Subjective/History History History 5-year-old female brought to the emergency department via EMS after being found down at home by her grandson. Some of the history is taken from her son who is present. He reports that a neighbor went to offer to go to the grocery for the patient when the patient would not answer the door. Patient's son was contacted and he was unable to get into the house as he does not have a hyde. He was able to lift his son through a window that they were able to open and the grandson found the patient on the floor and confused. EMS was contacted and brought the patient to the hospital. Patient is quite confused and is unable to answer questions with meaningful responses. She has been found to have a urinary tract infection, sepsis, rhabdomyolysis. Patient's been admitted for IV antibiotics and IV fluids as well as telemetry monitoring due to the unknown nature of her fall. Subjective Subjective At time of initial eval pt can answer yes/no questions correctly but has severe difficulty recalling words to answer questions with other than kes/no - pt also has some difficulty w/ motor planning and following commands - this pt is known to this therapist and this is completely out of character Rehab PT IP Eval Objective Appearance Patient Behavior Cooperative Patient Orientation Person,Place Difficulty following instructions mild Speech Pattern
[2020-04-18 12:00] VITALS: BP 122/39; PULSE 105; RESP 20; TEMP 36.4; O2SAT 94
[2020-04-18 15:12] VITALS: BP 118/82; PULSE 115; RESP 20; TEMP 36.8; O2SAT 99
--- NOTE | 2020-04-18 19:00 | PC.NURSE ---
SHE HAS BECOME MUCH MORE ALERT T/O THIS SHIFT, SHE IS ABLE TO ANSWER YES OR NO QUESTIONS, MAKE BASIC NEEDS KNOWN TO STAFF, SHE WAS UP TO CHAIR FOR AN HOUR OR SO THIS SHIFT, WAS ABLE TO TOLERATE SOME BROTH LATER IN SHIFT, SHE HAS DENIED PAIN, WAS ABLE TO PARTICIPATE WITH PT/OT TODAY, SHE HAS NOT REQUIRED O2 SUPPORT. NO N/V/D, NYSTATIN POWDER APPLIED TO SKIN FOLDS ORDERED, SHE DID PULL OUT ONE OF HER IV'S EARLY IN THE SHIFT, NS STILL INFUSING PER ORDERS, NO NEEDS AT TIS TIME, WILL CONTINUE TO MONITOR.
--- NOTE | 2020-04-18 19:04 | HMH.SLAPHASI ---
Speech & Language Evaluation Speech/Language Aphasia Evaluation Start: 04/18/20 18:17 Freq: once Status: Complete Protocol: Document 04/18/20 18:17 LATONYA (Rec: 04/18/20 19:03 LATONYA [id number]) Aphasia Assessment/Goals/Plan Assessment Date of Evaluation: 04/18/20 Evaluation Type Initial Certification Assessment/Problems Patient has difficulty with receptive and expressive language (aphasia), cognition (memory, reasoning), and possibly mild dysarthria. Does Patient Qualify for Service Yes Qualify/Failure Comment Patient qualifies for ST services based on the results of today's evaluation. Plan Pt/Guardian verbally ack understanding Yes: Reinforcement may be of dx/prognosis/goals needed due to memory difficulty G -code Required No STG-Auditory Comprehension Paragraph Level 80 1st Element 80 STG-Verbal Expressive Language Automatic Speech 80 Repetitive Abilities 80 STG-Written Language Signature 80 STG-Attending/Orientation/Memory Orientation 80 Delayed Recall 80 Memory Recall 80 STG-Comparative/Linguistic Skills Categorization Ability 80 Define Similarities/Differences 80 STG-Divergent Thinking Deductive Reasoning 80 Open-Ended Problem Solving 80 Steel Molder Goals Increase intelligibility w/use of ST will informally target traditional articulation treatment. articulation to address possible dysarthria Increase auditory comprehension skills Yes to communicate w/family & friends Increase verbal expression skills to Yes communicate w/family & friends. Increase cognitive skills to communicate Yes w/family & friends Education Instructions provided Education provided to patient regarding goals. Pt/Caregiver Able to Recall Information Reinforcement needed Reinforcement needed Yes Speech & Language HPI History Present Illness Description of Patient Problem Patient has difficulty with receptive and expressive language (aphasia), cognition (memory, reasoning), and possibly mild dysarthria. Pt/Caregiver Concerns Patient is concerned that she has trouble with word finding and becomes frustrated when she cannot get words out. PT reported that patient could
[2020-04-18 19:27] VITALS: BP 136/68; PULSE 126; RESP 20; TEMP 36.3; O2SAT 97
[2020-04-19 04:00] VITALS: BP 150/76; PULSE 120; RESP 28; TEMP 36.9; O2SAT 94
--- NOTE | 2020-04-19 04:26 | PC.NURSE ---
PT. ABLE TO STATE NAME, UNABLE TO STATE , PLACE OR YEAR. PT. ABLE TO EXPRESS NEEDS AND FOLLOW COMMANDS. PT. HAS NOT ATTEMPTED TO GET OOB UNASSISTED, PT. REMAINS ON SAFETY PRECAUTIONS. PT. HAS C/O INTERMITTENT SOA, O2 SAT 94% AT THIS TIME. FC DRAINING DARK YELLOW URINE WITH SEDIMENT. NYSTATIN POWDER APPLIED TO AREAS OF REDNESS BENEATH THE BREASTS AND ABD FOLDS. NO C/O N/V/D, PAIN OR DIZZINESS THIS SHIFT.
[2020-04-19 04:57] VITALS: BMI 44.7
[2020-04-19 07:22] LABS: Basophils % 0.1 % (0.1-2.0); Eosinophils # 0.1 K/mm3 (0.0-0.4); Eosinophils % 0.3 % (0.1-12.0); Hematocrit 44.2 % (37.0-47.0); Hemoglobin 14.8 g/dL (12.2-16.2); Lymphocytes # 1.1 K/mm3 (0.7-4.5); Lymphocytes % 7.2 % (10-50); Mean Corpuscular HGB Conc 33.4 g/dL (31.8-35.4); Mean Corpuscular Hemoglobin 30.3 pg (27.0-31.2); Mean Corpuscular Volume 90.7 fl (81-99); Mean Platelet Volume 8.5 fl (7.4-10.4); Monocytes # 0.3 K/mm3 (0.1-1.0); Monocytes % 2.2 % (1.7-9.3); Neutrophils # 13.7 K/mm3 (1.8-7.8); Neutrophils % 90.2 % (37.0-80.0); Platelet Count 172 K/mm3 (142-424); Red Blood Count 4.87 M/mm3 (4.20-5.40); Red Cell Distribution Width 13.7 % (11.5-17.5); White Blood Count 15.2 K/mm3 (4.8-10.8)
[2020-04-19 07:24] LABS: MANUAL DIFFERENTIAL MANUAL DIFFERENTIAL (MANUAL DIFF)
[2020-04-19 07:32] LABS: Anion Gap 15.7 mEq/L (5-15); Blood Urea Nitrogen 42 mg/dl (7-17); Calcium 8.4 mg/dl (8.4-10.2); Carbon Dioxide 13 mmol/L (22.0-30.0); Chloride 113 mmol/L (98-107); Creatinine Clearance Estimated 33 mL/min (50-200); Estimated Glomerular Filt Rate 40 ml/min (>60); GFR (African American) 48 ML/MIN (>60); Glucose 181 mg/dl (74-100); Potassium 3.7 mmoL/L (3.5-5.1); Sodium 138 mmol/L (136-145)
--- NOTE | 2020-04-19 07:33 | HMH.ACPN2 ---
Internal Medicine - PN: Subj *Date: 04/19/20 *Time: 07:33 Interval history: Patient without complaints this morning. She still has no memory of what led to her hospitalization but short-term memory such as why she is here in the hospital and where she is has improved. Patient reports the back of her head is sore and she believes she may have struck her head when she fell. She denies headache this morning. Patient was evaluated by physical therapy yesterday and will need rehabilitation stay before returning home per their recommendation. Overnight all blood cultures began to grow a gram-positive cocci with preliminary reading suspicious for group A strep patient remains on cefepime Exam Vital signs and Labs for Last 24 Hours: Temp Pulse Resp BP Pulse Ox 98.5 F 120 H 28 H 150/76 H 94 L 04/19/20 04:00 04/19/20 04:00 04/19/20 04:00 04/19/20 04:00 04/19/20 04:00 Laboratory Results - last 24 hr 04/18/20 07:10: WBC 15.1 H D, RBC 4.72, Hgb 14.2 D, Hct 43.6, MCV 92.4, MCH 30.0, MCHC 32.5, RDW 13.2, Plt Count 135 L D, MPV 8.8, Neut % (Auto) 88.7 H, Lymph % (Auto) 7.0 L, [place] % (Auto) 3.3, Eos % (Auto) 0.4, Baso % (Auto) 0.5, Neut # (Auto) 13.4 H, Lymph # (Auto) 1.1, [place] # (Auto) 0.5, Eos # (Auto) 0.1, Baso # (Auto) 0.1, Total Counted 100, Neutrophils % (Manual) 78 H, Band Neutrophils % 2.0, Lymphocytes % (Manual) 15, Monocytes % (Manual) 4, Metamyelocytes % 1.0, Platelet Estimate Slight decrease, RBC Morphology Normal 04/18/20 07:10: Sodium 139, Potassium 4.9, Chloride 112 H, Carbon Dioxide 14 L, Anion Gap 17.9 H, BUN 54 H, Creatinine 1.70 H, Estimated Creat Clear 50, Estimated GFR 29 L, Est GFR ( Amer) 35 L D, Glucose 192 H D, Calcium 8.7 D 04/19/20 06:39: WBC 15.2 H, RBC 4.87, Hgb 14.8, Hct 44.2, MCV 90.7, MCH 30.3, MCHC 33.4, RDW 13.7, Plt Count 172 D, MPV 8.5, Neut % (Auto) 90.2 H, Lymph % (Auto) 7.2 L, [place] % (Auto) 2.2, Eos % (Auto) 0.3, Baso % (Auto) 0.1, Neut # (Auto) 13.7 H, Lymph # (Auto) 1.1, [place] # (Auto) 0.3, Eos # (Auto) 0.1, Baso # (Auto) 0.0 I & O for Last 24 hours: Intake & Output 04/16/20 04/17/20 04/18/20 04/19/20 11:59 11:59 11:59 11:59 Intake Total 1199 / 1199 2674 / 2674 Output Total 850 / 850 825 / 825 Balance 349 / 349 1849 / 1849 Weight 250 lb 250 lb 2.49 oz 268 lb 12.8 oz - Constitutional no acute distress - *Routine Respiratory Exam Present: CTA bilaterally - *Routine Cardiovascular Exam Present: RRR - *Routine Abdominal Exam Present: soft, normoactive bowel sounds. Absent: tenderness - *Routine Extremities Exam Absent: cyanosis, clubbing, edema Comments: Right lower extremity has pink erythema and is tender to touch. This is a chronic problem Assessment and Plan (1) Gram positive sepsis Status: Acute Category: Medical Code(s): A41.89 - Other specified sepsis (2) Sepsis Status: Acute Qualifiers: Sepsis type: sepsis due to unspecified organism Sepsis acute organ dysfunction status: with acute organ dysfunction Severe sepsis acute organ dysfunction type: critical illness myopathy Severe sepsis shock status: with septic shock Qualified Code(s): A41.9 - Sepsis, unspecified organism; R65.21 - Severe sepsis with septic shock; G72.81 - Critical illness myopathy Category: Medical Code(s): A41.9 - Sepsis, unspecified organism (3) UTI (urinary tract infection) Status: Acute Qualifiers: Urinary tract infection type: acute cystitis Hematuria presence: without hematuria Qualified Code(s): N30.00 - Acute cystitis without hematuria Category: Medical Code(s): N39.0 - Urinary tract infection, site not specified (4) Acute kidney injury Status: Acute Category: Medical Code(s): N17.9 - Acute kidney failure, unspecified (5) Rhabdomyolysis Status: Acute Category: Medical Code(s): M62.82 - Rhabdomyolysis (6) Altered mental status Status: Acute Qualifiers: Altered mental status type: delirium Qualified
[2020-04-19 07:52] LABS: Lymphocytes % 11 % (10-50); Monocytes % 1 % (2-9); Neutrophils % 88 % (42-76); Platelet Estimate Normal; RBC Morphology Normal; Total Cells Counted 100
[2020-04-19 08:00] VITALS: BP 126/87; PULSE 114; RESP 22; TEMP 36.6; O2SAT 93
[2020-04-19 08:42] LABS: Hemoglobin A1C 6.9 % (4.0-6.0)
[2020-04-19 09:24] VITALS: BMI 44.8
--- NOTE | 2020-04-19 12:05 | XR_ITS ---
PROCEDURE: XR CHEST 2V CLINICAL HISTORY: cough, hypoxia, ques. aspir. COMPARISON: CR CXR2V XR chest 2V from 11/29/2017 CR XR CHEST PORTABLE from 08/03/2019 CR XR CHEST PORTABLE from 04/17/[address] CHEST WO CON from 04/17/2020 FINDINGS: The cardiomediastinal silhouette and pulmonary vascularity are within normal limits. Right hemidiaphragm is elevated. No lobar consolidation or collapse. Probable skin fold artifact right lower hemithorax laterally. No acute bony abnormalities. IMPRESSION: No acute findings. Dictated by: Guilherme Robbins MD 04/19/2020 15:45 Guilherme Robbins MD in [place] 04/19/2020 15:45
--- NOTE | 2020-04-19 14:39 | SW/DCPLANNER ---
Addendum entered by Gillian Rivera 04/22/20 15:33: NEGATIVE COVID results have been faxed to [facility] at [place]. Addendum entered by Gillian Rivera 04/22/20 07:42: Patient will discharge to [place] today pending NEGATIVE COVID results (ordered). Patient will discharge with IV for four more days of IV Rocephin. I have updated Pablo regarding this patient situation. I will follow up once results from COVID are resulted. Original Note: SPOKE WITH PATIENT TODAY AND DAUGHTER IN LAW , STEPHON AT BEDSIDE.. TOLD HER THAT DR JENNINGS RECOMMENDED SHE GO SOMEWHERE POST HOSPITAL STAY FOR IV ANTIBIOTICS AND REHAB SERVICES.. PATIENT APPEARED TO BE RECEPTIVE AND I TOLD HER I WOULD TRY TO KEEP HER LOCAL IF ALL POSSIBLE.. I SENT REFERRAL TO [facility] AND RECEIVED A MESSAGE BACK THAT SHE WAS ACCEPTED.. SHE WILL GET HER PICC LINE ON WEDNESDAY AND PENDING NO SETBACKS SHE MAY DISCHARGE THERE TO START HER THERAPY... PATIENT AND FAMILY IN AGREEMENT OF THE PLAN...
--- NOTE | 2020-04-19 15:48 | HMH.SLDYSPHA ---
Speech & Language Evaluation Speech/Language Dysphagia Evaluation Start: 04/19/20 15:32 Freq: ONCE Status: Active Protocol: Document 04/19/20 15:32 ROSELIA (Rec: 04/19/20 15:47 ROSELIA [id number]) Dysphagia Assess/Goals/Plan Assessment Date of Evaluation: 04/19/20 Evaluation Type Initial Certification Assessment/Problems Dysphagia Does Patient Qualify for Service No Qualify/Failure Comment Patient will have diet modifications in place. Recommendations PHYSICIAN CERTIFICATION: The specified therapy services are required, authorized, and reviewed every 30 days. Diet Recommendations Mechanical Soft Liquid Type Recommendations Normal/Thin SL Swallow Guidelines Standard Aspiration Prec. Dysphagia Swallow Precautions/Strategies Small Bites and Sips,Alternate Liquids/Solids Plan Pt/Guardian verbally ack understanding Yes of dx/prognosis/goals G -code Required No Speech & Language HPI History Present Illness Description of Patient Problem Patient has difficulty with receptive and expressive language (aphasia), cognition (memory, reasoning), and possibly mild dysarthria. Pt/Caregiver Concerns Patient is concerned that she has trouble with word finding and becomes frustrated when she cannot get words out. PT reported that patient could not verbalize her name this AM and attempted to say it voicing, D...D.. D.. PT also walked into patient's room this afternoon and saw patient holding call light in hands and putting it against her mouth. When asked what she was doing, she responded, I'm trying to get a drink . Symptom Onset Date 04/16/20 Rehab Services Assessed Speech therapy Vision Visual Difficulty Moderately Impaired Comment Patient had difficulty identifying smaller pictures and words during evaluation. However, she could read letters of the alphabet presented that were approximately 1 inch in height with bold font. Language Primary Language [place] Lang/Spoken in Home
[2020-04-19 16:00] VITALS: BP 111/73; PULSE 115; RESP 22; TEMP 36.8; O2SAT 96
--- NOTE | 2020-04-19 19:00 | PC.NURSE ---
A&O TO NAME, BIRTHDAY, AND YEAR. PT HAD TO BE PLACED ON 1L NC THIS MORNING DUE TO INCREASED SOB AND BEING 89% ON RA. SINCE THEN, PT HAS TOLERATED 1L NC WELL THROUGHOUT SHIFT. EXPIRATORY WHEEZES AND RHONCHI NOTED TO R LUNG. ACTIVE BOWEL SOUNDS HEARD IN ALL 4 QUADRANTS. SOFT AND NONTENDER ABDOMEN. NO BM NOTED. MAYES CATHETER IN PLACE W CLEAR YELLOW URINE NOTED. PT RECEIVED LASIX TODAY AND HAD GREAT URINE OUTPUT. EDEMA NOTED TO RLE. HAND RIBBON CLEANER EQUAL. +2 PULSES NOTED THROUGHOUT. PT IS ABLE TO TRANSFER W 1 PERSON ASSIST. NO REPORTS OF PAIN THROUGHOUT SHIFT. PT HAS RECEIVED SEVERAL ANTIBIOTICS TODAY AND TOLERATED THEM ALL WELL. BED ALARM IN PLACE TO PROMOTE SAFETY. CALL LIGHT WITHIN REACH. BED IN LOWEST POSITION. VSS. WILL CONTINUE TO MONITOR.
[2020-04-19 19:38] VITALS: BP 96/67; PULSE 113; RESP 20; TEMP 36.4; O2SAT 96
[2020-04-19 20:25] VITALS: PULSE 110; O2SAT 96
[2020-04-20] VITALS (8 sets, daily range): BP systolic 109–145; BP diastolic 58–90; PULSE 77–118; RESP 20–24; TEMP 36.6–36.7; O2SAT 90–98; BMI 44.8
--- NOTE | 2020-04-20 04:57 | PC.NURSE ---
pt has been very fatigued this shift, but will wake up to her name, upon assessment pt is AxOx4, wheezing heard t/o right side of lungs, was on 1L with O2 sats 96-97%, placed on room air at 0415 with an O2 sat of 96%, pt currently still on room air, has been tachy with rates of 108-113, has had no complaints of SOA or chest pain, workman patent and draining clear yellow urine
[2020-04-20 07:07] LABS: Basophils % 0.2 % (0.1-2.0); Eosinophils # 0.1 K/mm3 (0.0-0.4); Eosinophils % 0.7 % (0.1-12.0); Hematocrit 41.1 % (37.0-47.0); Hemoglobin 13.8 g/dL (12.2-16.2); Lymphocytes # 1.8 K/mm3 (0.7-4.5); Lymphocytes % 9.1 % (10-50); Mean Corpuscular HGB Conc 33.7 g/dL (31.8-35.4); Mean Corpuscular Hemoglobin 30.9 pg (27.0-31.2); Mean Corpuscular Volume 91.8 fl (81-99); Mean Platelet Volume 8.9 fl (7.4-10.4); Monocytes # 0.6 K/mm3 (0.1-1.0); Monocytes % 3.1 % (1.7-9.3); Neutrophils # 16.8 K/mm3 (1.8-7.8); Neutrophils % 86.9 % (37.0-80.0); Platelet Count 181 K/mm3 (142-424); Red Blood Count 4.47 M/mm3 (4.20-5.40); Red Cell Distribution Width 13.8 % (11.5-17.5); White Blood Count 19.3 K/mm3 (4.8-10.8)
[2020-04-20 07:09] LABS: MANUAL DIFFERENTIAL MANUAL DIFFERENTIAL (MANUAL DIFF)
[2020-04-20 07:20] LABS: Eosinophils % 1 % (0-3); Lymphocytes % 6 % (10-50); Monocytes % 4 % (2-9); Neutrophils % 88 % (42-76); Platelet Estimate Normal; RBC Morphology Normal; Total Cells Counted 100
[2020-04-20 07:25] LABS: Anion Gap 14.9 mEq/L (5-15); Blood Urea Nitrogen 46 mg/dl (7-17); Calcium 8.4 mg/dl (8.4-10.2); Carbon Dioxide 20 mmol/L (22.0-30.0); Chloride 108 mmol/L (98-107); Creatinine Clearance Estimated 26 mL/min (50-200); Estimated Glomerular Filt Rate 31 ml/min (>60); GFR (African American) 38 ML/MIN (>60); Glucose 159 mg/dl (74-100); Potassium 3.9 mmoL/L (3.5-5.1); Sodium 139 mmol/L (136-145)
--- NOTE | 2020-04-20 08:20 | HMH.ACPN2 ---
Internal Medicine - PN: Subj *Date: 04/20/20 *Time: 08:20 Interval history: Patient has no complaints this morning. She admits to dyspnea. Patient feels like she slept well overnight. Nursing staff reports patient is 2 person max assist. Exam Vital signs and Labs for Last 24 Hours: Temp Pulse Resp BP Pulse Ox 97.8 F 108 H 20 109/70 L 98 04/20/20 04:00 04/20/20 04:00 04/20/20 04:00 04/20/20 04:00 04/20/20 06:24 Laboratory Results - last 24 hr 04/19/20 06:39: Hemoglobin A1c 6.9 H 04/20/20 06:25: WBC 19.3 H D, RBC 4.47, Hgb 13.8, Hct 41.1, MCV 91.8, MCH 30.9, MCHC 33.7, RDW 13.8, Plt Count 181, MPV 8.9, Neut % (Auto) 86.9 H, Lymph % (Auto) 9.1 L, [place] % (Auto) 3.1, Eos % (Auto) 0.7, Baso % (Auto) 0.2, Neut # (Auto) 16.8 H, Lymph # (Auto) 1.8, [place] # (Auto) 0.6, Eos # (Auto) 0.1, Baso # (Auto) 0.0, Total Counted 100, Neutrophils % (Manual) 88 H, Band Neutrophils % 1.0, Lymphocytes % (Manual) 6 L, Monocytes % (Manual) 4, Eosinophils % (Manual) 1, Platelet Estimate Normal, RBC Morphology Normal 04/20/20 06:25: Sodium 139, Potassium 3.9, Chloride 108 H, Carbon Dioxide 20 L D, Anion Gap 14.9, BUN 46 H, Creatinine 1.60 H D, Estimated Creat Clear 26, Estimated GFR 31 L, Est GFR ( Amer) 38 L D, Glucose 159 H, Calcium 8.4 I & O for Last 24 hours: Intake & Output 04/17/20 04/18/20 04/19/20 04/20/20 11:59 11:59 11:59 11:59 Intake Total 1199 / 1199 2914 / 2914 1482 / 1482 Output Total 850 / 850 825 / 825 2200 / 2200 Balance 349 / 349 2089 / 2089 -718 / -718 Weight 250 lb 250 lb 2.49 oz 268 lb 15.423 oz 269 lb 1 oz Microbiology Reports for the Last 24 Hours: Microbiology 04/18/20 11:43 Urine,Clean Catch Urine Culture - Preliminary Gram Negative Rods 04/17/20 11:25 Blood Blood Culture - Final Strep pyogenes (grp a) 04/17/20 11:25 Blood Blood Culture - Final Strep pyogenes (grp a) Narrative: Patient is laying in bed. No signs of respiratory distress. Lung exam reveals end expiratory wheezing heard primarily in the posterior lungs. Heart has a regular rate and rhythm. Abdomen is obese and soft. Lower extremities there is swelling of both the right and left leg with more noticeable swelling on the right. Bilateral lower extremity light pink erythema and tenderness of the right leg to palpation. All blood cultures are growing group a strep, strep pyogenes. 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 Severe sepsis shock status: with septic shock Qualified Code(s): A41.9 - Sepsis, unspecified organism; R65.21 - Severe sepsis with septic shock; G72.81 - Critical illness myopathy Category: Medical Code(s): A41.9 - Sepsis, unspecified organism (3) UTI (urinary tract infection) Status: Acute Qualifiers: Urinary tract infection type: acute cystitis Hematuria presence: without hematuria Qualified Code(s): N30.00 - Acute cystitis without hematuria Category: Medical Code(s): N39.0 - Urinary tract infection, site not specified (4) Acute kidney injury Status: Acute Category: Medical Code(s): N17.9 - Acute kidney failure, unspecified (5) Rhabdomyolysis Status: Acute Category: Medical Code(s): M62.82 - Rhabdomyolysis (6) Altered mental status Status: Acute Qualifiers: Altered mental status type: delirium Qualified Code(s): R41.0 - Disorientation, unspecified Category: Medical Code(s): R41.82 - Altered mental status, unspecified (7) Morbid obesity with BMI of 40.0-44.9, adult Status: Chronic Ca
--- NOTE | 2020-04-20 15:04 | PC.NURSE ---
A&OX4. PT HAS TOLERATED RA WELL THROUGHOUT SHIFT. RESPIRATIONS REGULAR AND UNLABORED. EXPIRATORY WHEEZES NOTED THROUGHOUT. ACTIVE BOWEL SOUNDS HEARD IN ALL 4 QUADRANTS. SOFT AND NONTENDER ABDOMEN. NO BM THUS FAR. MAYES CATH WAS DC'D TODAY PER MD AND PT HAS VOIDED SINCE. [place] [facility] [place]. HAND AURIST EQUAL. +2 PULSES NOTED THROUGHOUT. +2 PITTING EDEMA NOTED TO RLE. PURPLISH DISCOLORATION NOTED TO RLE. REDNESS NOTED TO BILATERAL BREASTS AND ABDOMINAL FOLDS. NYSTATIN APPLIED PER JUN. NO PAIN REPORTED THUS FAR. PT IS CURRENTLY UP TO THE CHAIR WORKING W SPEECH AT THIS TIME. PT HAS RECEIVED SEVERAL ANTIBIOTICS THIS SHIFT AND TOLERATED ALL WELL. SON CAME TO VISIT TODAY WELL DAUGHTER IN LAW. BED ALARM ON TO PROMOTE SAFETY. CALL LIGHT WITHIN REACH. BED IN LOWEST POSITION. VSS. WILL CONTINUE TO MONITOR.
[2020-04-21] VITALS (8 sets, daily range): BP systolic 105–139; BP diastolic 57–63; PULSE 74–82; RESP 16–20; TEMP 36.4–36.6; O2SAT 95–98; BMI 45.7
--- NOTE | 2020-04-21 04:50 | PC.NURSE ---
pt has rested well t/o shift, has been AxOx4 t/o shift, has remained on room air, O2 sats 90-96%, no complaints of SOA or chest pain, has been incontinent of urine one time this shift
[2020-04-21 07:22] LABS: Basophils % 0.1 % (0.1-2.0); Eosinophils # 0.3 K/mm3 (0.0-0.4); Eosinophils % 2.4 % (0.1-12.0); Hematocrit 36.5 % (37.0-47.0); Lymphocytes # 1.7 K/mm3 (0.7-4.5); Lymphocytes % 12.5 % (10-50); Mean Corpuscular HGB Conc 33.1 g/dL (31.8-35.4); Mean Corpuscular Hemoglobin 30.5 pg (27.0-31.2); Mean Corpuscular Volume 92.4 fl (81-99); Mean Platelet Volume 8.4 fl (7.4-10.4); Monocytes # 0.7 K/mm3 (0.1-1.0); Monocytes % 4.7 % (1.7-9.3); Neutrophils # 11.1 K/mm3 (1.8-7.8); Neutrophils % 80.3 % (37.0-80.0); Platelet Count 162 K/mm3 (142-424); Red Blood Count 3.95 M/mm3 (4.20-5.40); Red Cell Distribution Width 13.9 % (11.5-17.5); White Blood Count 13.8 K/mm3 (4.8-10.8)
[2020-04-21 07:33] LABS: Hemoglobin 12.1 g/dL (12.2-16.2)
[2020-04-21 07:36] LABS: Anion Gap 15.5 mEq/L (5-15); Blood Urea Nitrogen 48 mg/dl (7-17); Calcium 8.1 mg/dl (8.4-10.2); Carbon Dioxide 19 mmol/L (22.0-30.0); Chloride 107 mmol/L (98-107); Creatinine Clearance Estimated 26 mL/min (50-200); Estimated Glomerular Filt Rate 31 ml/min (>60); GFR (African American) 38 ML/MIN (>60); Glucose 136 mg/dl (74-100); Potassium 3.5 mmoL/L (3.5-5.1); Sodium 138 mmol/L (136-145)
[2020-04-21 07:53] LABS: Procalcitonin 9.23 ng/mL (0.0-2.0)
--- NOTE | 2020-04-21 08:42 | HMH.ACPN2 ---
Internal Medicine - PN: Subj *Date: 04/21/20 *Time: 08:42 Interval history: Patient has no complaints this morning. She denies shortness of breath. She reports weakness when attempting to ambulate or transfer from bed to chair Exam Vital signs and Labs for Last 24 Hours: Temp Pulse Resp BP Pulse Ox 97.7 F 75 20 105/57 L 95 04/21/20 04:00 04/21/20 05:40 04/21/20 04:00 04/21/20 04:00 04/21/20 05:40 Laboratory Results - last 24 hr 04/21/20 06:10: WBC 13.8 H D, RBC 3.95 L, Hgb 12.1 L D, Hct 36.5 L, MCV 92.4, MCH 30.5, MCHC 33.1, RDW 13.9, Plt Count 162, MPV 8.4, Neut % (Auto) 80.3 H, Lymph % (Auto) 12.5, [place] % (Auto) 4.7, Eos % (Auto) 2.4, Baso % (Auto) 0.1, Neut # (Auto) 11.1 H, Lymph # (Auto) 1.7, [place] # (Auto) 0.7, Eos # (Auto) 0.3, Baso # (Auto) 0.0 04/21/20 06:10: Sodium 138, Potassium 3.5, Chloride 107, Carbon Dioxide 19 L, Anion Gap 15.5 H, BUN 48 H, Creatinine 1.60 H, Estimated Creat Clear 26, Estimated GFR 31 L, Est GFR ( Amer) 38 L, Glucose 136 H, Calcium 8.1 L, Procalcitonin 9.23 H I & O for Last 24 hours: Intake & Output 04/18/20 04/19/20 04/20/20 04/21/20 11:59 11:59 11:59 11:59 Intake Total 1199 / 1199 2914 / 2914 1722 / 1722 915 / 915 Output Total 850 / 850 825 / 825 2200 / 2200 200 / 200 Balance 349 / 349 2089 / 2089 -478 / -478 715 / 715 Weight 250 lb 2.49 oz 268 lb 15.423 oz 269 lb 1 oz 274 lb 8 oz Microbiology Reports for the Last 24 Hours: Microbiology 04/18/20 11:43 Urine,Clean Catch Urine Culture - Final Escherichia coli 04/17/20 11:25 Blood Blood Culture - Final Strep pyogenes (grp a) 04/17/20 11:25 Blood Blood Culture - Final Strep pyogenes (grp a) - Constitutional no acute distress - *Routine Respiratory Exam Present: CTA bilaterally - *Routine Cardiovascular Exam Present: RRR - *Routine Abdominal Exam Present: soft, normoactive bowel sounds. Absent: tenderness Assessment and Plan (1) Sepsis due to Streptococcus pyogenes Status: Acute Category: Medical Code(s): A40.0 - Sepsis due to streptococcus, group A (2) E. coli UTI Status: Acute Category: Medical Code(s): N39.0 - Urinary tract infection, site not specified; B96.20 - Unspecified Escherichia coli [E. 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 Severe sepsis shock status: with septic shock Qualified Code(s): A41.9 - Sepsis, unspecified organism; R65.21 - Severe sepsis with septic shock; G72.81 - Critical illness myopathy Category: Medical Code(s): A41.9 - Sepsis, unspecified organism (4) UTI (urinary tract infection) Status: Acute Qualifiers: Urinary tract infection type: acute cystitis Hematuria presence: without hematuria Qualified Code(s): N30.00 - Acute cystitis without hematuria Category: Medical Code(s): N39.0 - Urinary tract infection, site not specified (5) Acute kidney injury Status: Acute Category: Medical Code(s): N17.9 - Acute kidney failure, unspecified (6) Rhabdomyolysis Status: Acute Category: Medical Code(s): M62.82 - Rhabdomyolysis (7) Altered mental status Status: Acute Qualifiers: Altered mental status type: delirium Qualified Code(s): R41.0 - Disorientation, unspecified Category: Medical Code(s): R41.82 - Altered mental status, unspecified (8) Morbid obesity with BMI of 40.0-44.9, adult Status: Chronic Category: Medical Code(s): E66.01 - Morbid (severe) obesity due to excess calories; Z68.41 - Body mass index [BMI]40.0-44.9, adult (9) Hyperglycemia Status: Acute Category: Medical Code(s): R73.9 - Hyperglycemia, unspecified (10) Chronic diastolic hear
--- NOTE | 2020-04-21 13:17 | PC.NURSE ---
NOTIFIED DR JENNINGS THAT PT IS HAVING PAIN IN HER RLE. SHE HAS HAD TROUBLE WITH IT FOR YEARS AFTER BREAKING IT, BUT IT IS HURTING MORE THAN NORMAL. TYLENOL WAS GIVEN AND DIDN'T HELP. NORCO ORDERED.
--- NOTE | 2020-04-21 14:55 | PC.NURSE ---
A&OX4. PT HAS TOLERATED RA WELL THROUGHOUT SHIFT. RESPIRATIONS REGULAR AND UNLABORED. DIMINISHED LUNG SOUNDS NOTED THROUGHOUT. ACTIVE BOWEL SOUNDS HEARD IN ALL 4 QUADRANTS. SOFT AND NONTENDER ABDOMEN. NO BM THUS FAR. PT VOIDS PER [facility]SC W 1 PERSON ASSISTANCE. PT HAS HAD EPISODES OF INCONTINENCE AND HAS BEEN CHANGED NEEDED. HAND HAND EMBROIDERER EQUAL. +2 PULSES NOTED THROUGHOUT. +2 PITTING EDEMA NOTED TO RLE. PURPLISH DISCOLORATION NOTED TO RLE. PT REPORTED PAIN IN THAT LEG ONCE AND WAS ADMINISTERED TYLENOL THEN NORCO. ON REASSESSMENT OF NORCO, PT WAS RESTING W EYES CLOSED. REDNESS NOTED TO BILATERAL BREASTS AND ABDOMINAL FOLDS. NYSTATIN POWDER APPLIED PER JUN. PT HAS RECEIVED SEVERAL ANTIBIOTICS THIS SHIFT AND TOLERATED ALL WELL. SON CAME TO VISIT TODAY WELL DAUGHTER IN LAW. NO REPORTS OF SOB THUS FAR. BED ALARM ON TO [employer] SAFETY. CALL LIGHT WITHIN REACH. BED IN LOWEST POSITION. VSS. WILL CONTINUE TO MONITOR.
[2020-04-22 03:57] VITALS: BP 139/71; PULSE 71; RESP 19; TEMP 36.4; O2SAT 98
--- NOTE | 2020-04-22 04:21 | PC.NURSE ---
Addendum entered by Ary Thorpe RN 04/22/20 04:41: has remained AxOx4 t/o shift Original Note: pt has remained awake most of shift, has complained of pain in right leg and was treated per JUN, has been incontinent of urine one time, remained afebrile, no complaints of SOA or chest pain, HR 71-74, remains on room air with O2 sats 97-98%
[2020-04-22 04:46] VITALS: BMI 45.8
[2020-04-22 06:03] VITALS: PULSE 75; PULSE 78; O2SAT 94
--- NOTE | 2020-04-22 07:25 | HMH.DCSUM ---
General - General Admission date:: 04/17/20 Discharge date: 04/22/20 HPI HPI: 75-year-old female brought to the emergency department via EMS after being found down at home by her grandson. Some of the history is taken from her son who is present. He reports that a neighbor went to offer to go to the grocery for the patient when the patient would not answer the door. Patient's son was contacted and he was unable to get into the house as he does not have a hyde. He was able to lift his son through a window that they were able to open and the grandson found the patient on the floor and confused. EMS was contacted and brought the patient to the hospital. Patient is quite confused and is unable to answer questions with meaningful responses. She has been found to have a urinary tract infection, sepsis, rhabdomyolysis. Patient's been admitted for IV antibiotics and IV fluids as well as telemetry monitoring due to the unknown nature of her fall. Hospital Course Hospital Course: Patient was admitted with rhabdomyolysis and suspected sepsis from likely urinary tract infection. Patient was initially started on cefepime and did receive vancomycin initially. Vancomycin was discontinued early in the admission in favor of cefepime only. Once blood cultures began to show gram-positive cocci consistent with Streptococcus pyogenes patient's antibiotics were adjusted to ceftriaxone and clindamycin was added. Patient Streptococcus infection was sensitive to cefepime. Patient's white blood count trended down on this regimen. All 4 blood cultures were positive for Streptococcus pyogenes and patient will complete a 10-day course of antibiotics. At discharge her Rocephin will continue to be given through peripheral IV. Clindamycin will be transitioned to oral antibiotic. Patient was suspected of having urinary tract infection as cause of sepsis. Urine did grow E. coli also sensitive to Rocephin and cefepime. Patient was found down at home with altered mental status. Patient's encephalopathy was attributed to her sepsis. As hospitalization progressed and patient was on appropriate antibiotics her mental status returned to baseline. Patient has had falls at home and attributes some of this to her right foot and leg pain from a fracture approximately 4 years ago. This could always a significant pain that does not respond to Tylenol. Patient was treated with as needed [place] and at discharge I will also add on topical diclofenac. PT was consulted and on evaluation patient is going to require SNF level of rehabilitation which patient agreed to. Bed was found at [facility] and patient was discharged to [facility] on April 22 Patient had acute kidney injury on admission believed to be due to rhabdomyolysis. IV fluids improved JOANNE and patient's creatinine returned to baseline. Patient was hyperglycemic. A1c was 6.9. This will continue to be monitored as an outpatient. Discharge condition: Stable Mental status: Average Rehab potential: Fair Prognosis: Good Objective Vital signs: Temp Pulse Resp BP Pulse Ox 97.5 F L 78 19 139/71 94 L 04/22/20 03:57 04/22/20 06:03 04/22/20 03:57 04/22/20 03:57 04/22/20 06:03 no acute distress - *Routine Respiratory Exam Present: CTA bilaterally - *Routine Cardiovascular Exam Present: RRR - *Routine Abdominal Exam Present: soft, normoactive bowel sounds. Absent: tenderness - *Routine Extremities Exam Comments: Patient is swelling of the right leg when compared to the left. There is chronic erythematous change to both lower extremities. She has palpable tenderness along the right distal lower extremity and ankle Results Labs on day of discharge: Labs from last 24 hours 04/21/20 04/21/20 06:10 06:10 WBC 13.8 H D RBC 3.95 L Hgb 12.1 L D Hct 36.5 L MCV 92.4 MCH 30.5 MCHC 33.1 RDW 13.9 Plt Count 162 MPV 8.4 Neut % (Auto) 80.3 H Lymph % (
[2020-04-22 07:40] LABS: Anion Gap 13.7 mEq/L (5-15); Blood Urea Nitrogen 39 mg/dl (7-17); Calcium 8.6 mg/dl (8.4-10.2); Carbon Dioxide 20 mmol/L (22.0-30.0); Chloride 108 mmol/L (98-107); Creatinine Clearance Estimated 30 mL/min (50-200); Estimated Glomerular Filt Rate 37 ml/min (>60); GFR (African American) 44 ML/MIN (>60); Glucose 145 mg/dl (74-100); Potassium 3.7 mmoL/L (3.5-5.1); Sodium 138 mmol/L (136-145)
[2020-04-22 07:47] LABS: Basophils % 0.3 % (0.1-2.0); Eosinophils # 0.2 K/mm3 (0.0-0.4); Eosinophils % 2.3 % (0.1-12.0); Hematocrit 39.8 % (37.0-47.0); Hemoglobin 12.8 g/dL (12.2-16.2); Lymphocytes # 1.4 K/mm3 (0.7-4.5); Lymphocytes % 12.7 % (10-50); Mean Corpuscular HGB Conc 32.2 g/dL (31.8-35.4); Mean Corpuscular Hemoglobin 30.1 pg (27.0-31.2); Mean Corpuscular Volume 93.5 fl (81-99); Mean Platelet Volume 8.1 fl (7.4-10.4); Monocytes # 0.4 K/mm3 (0.1-1.0); Monocytes % 3.6 % (1.7-9.3); Neutrophils # 8.6 K/mm3 (1.8-7.8); Neutrophils % 81.1 % (37.0-80.0); Platelet Count 169 K/mm3 (142-424); Red Blood Count 4.26 M/mm3 (4.20-5.40); Red Cell Distribution Width 14.1 % (11.5-17.5); White Blood Count 10.6 K/mm3 (4.8-10.8)
[2020-04-22 08:00] VITALS: BP 146/62; PULSE 79; RESP 19; TEMP 36.5; O2SAT 94
--- NOTE | 2020-04-22 09:55 | PC.NURSE ---
CALLED REPORT TO [facility].
--- NOTE | 2020-04-22 10:06 | PC.NURSE ---
CALLED [facility] TO TRANSPORT PT.
[2020-04-22 12:08] LABS: Adenovirus,PCR Not Detected (NotDetected); Bordetella Pertussis Not Detected (NotDetected); Chlamydophila Pneumoniae, PCR Not Detected (NotDetected); Coronavirus 19, PCR Not Detected (NotDetected); Coronavirus 229E Not Detected (NotDetected); Coronavirus NL63 Not Detected (NotDetected); Coronavirus OC43 Not Detected (NotDetected); Coronovirus HKU1,PCR Not Detected (NotDetected); Human Metapneumovirus Not Detected (NotDetected); Influenza A, PCR Not Detected (NotDetected); Influenza AH1, 2009 Not Detected (NotDetected); Influenza AH1, PCR Not Detected (NotDetected); Influenza AH3,PCR Not Detected (NotDetected); Influenza B, PCR Not Detected (NotDetected); Mycoplasma Pneumoniae, PCR Not Detected (NotDetected); Parainfluenza 1, PCR Not Detected (NotDetected); Parainfluenza 2, PCR Not Detected (NotDetected); Parainfluenza 3, PCR Not Detected (NotDetected); Parainfluenza 4, PCR Not Detected (NotDetected); Respiratory Syncytial Virus Not Detected (NotDetected); Rhinovirus/Enterovirus Not Detected (NotDetected)
== END 2020-04-22 10:41 | DRG 871 ==
LOC: ER 14:49 → 2ND 18:34
PROVIDERS: Admitting Provider Family Medicine; Emergency Provider Emergency Medicine; PCP Family Medicine; Visit Provider Family Medicine
DX: A40.0 Sepsis due to streptococcus, group A (principal); R65.21 Severe sepsis with septic shock; I50.33 Acute on chronic diastolic (congestive) heart failure; G72.81 Critical illness myopathy; Z68.42 Body mass index [BMI] 45.0-49.9, adult; G93.40 Encephalopathy, unspecified; I11.0 Hypertensive heart disease with heart failure; E03.9 Hypothyroidism, unspecified; Z95.5 Presence of coronary angioplasty implant and graft; R73.9 Hyperglycemia, unspecified; E66.01 Morbid (severe) obesity due to excess calories; I25.10 Atherosclerotic heart disease of native coronary artery without angina pectoris; I25.2 Old myocardial infarction; Z79.02 Long term (current) use of antithrombotics/antiplatelets; Z86.718 Personal history of other venous thrombosis and embolism; Z79.01 Long term (current) use of anticoagulants; R41.0 Disorientation, unspecified
CPT/HCPCS: 36415; 70450; 71045; 71046; 71250; 74176; 80048; 80053; 81001; 82550; 82803; 83036; 83605; 83690; 84145; 84484; 85007; 85025; 86328; 87040; 87077; 87086; 87088; 87186; 87581; 87633; 87798; 92507; 92523; 92610; 93005; 94640; 96365; 96366; 96367; 97110; 97162; 97530; 99285; J3370; U0003

== ENCOUNTER → 2020-06-20 08:33 | Outpatient (CLI) | payer MEDICARE, OTHER, SELFPAY ==
--- NOTE | 2020-06-20 08:53 | MR_ITS ---
PROCEDURE: MR HEAD/BRAIN WO CON CLINICAL INDICATION: MEMORY LOSS Pt was found on the floor [id number] ago. Patient was unable to form words 3 days after episode. States now has a hard time walking. Prior CT head 04-17-20. COMPARISON: CT CT HEAD/BRAIN WO CON from 04/17/2020 TECHNIQUE: Routine multiplanar multi echo sequences are performed without gadolinium enhancement. FINDINGS: No midline shift, mass effect, intracranial hemorrhage, or hydrocephalus. No evidence of acute infarction. There are edematous changes in the left frontal lobe inferiorly and laterally along the sylvian fissure region. This area shows decreased T1 signal and increased T2 signal with only low-grade slight increased diffusion signal. ADC images show up slight increased signal intensity consistent with a subacute area of infarction. Encephalomalacia changes are present involving the left occipital lobe medially Scattered periventricular and subcortical T2 white matter hyperintensities consistent with ischemic gliotic change from microvascular disease. Old small lacunar infarction noted in the left basal ganglia. The pituitary, optic chiasm, corpus callosum, and craniocervical junction have an unremarkable appearance. Small amount fluid noted in the right mastoid air cells. Minimal left maxillary sinus mucosal thickening. IMPRESSION: Subacute infarction in the left frontal lobe Encephalomalacia change left occipital lobe medially. Atrophy with chronic ischemic gliotic changes. Dictated by: Guilherme Robbins MD 06/21/2020 12:35 Guilherme Robbins MD in [place] 06/21/2020 12:35
== END ==
PROVIDERS: PCP Family Medicine; Visit Provider Family Medicine
DX: R41.3 Other amnesia (principal)
CPT/HCPCS: 70551

== ENCOUNTER → 2021-01-31 12:53 | Outpatient (CLI) | payer MEDICARE, OTHER, SELFPAY ==
--- NOTE | 2021-01-31 | CA_ITS ---
APPROVED REPORT Order Tracer: CT Laterality: Bilateral Study Quality: Technically Limited, Due to body habitus. Indications: CVA, TIA,HTN, HLD, OBESITY Risk Factors Hypertension: Hyperlipidemia Doppler Spectral Velocity Analysis ECA (R) 158.00/ cm/s ECA (L) 120.70/ cm/s dICA (R) 95.00/27.00 cm/s dICA (L) 95.40/14.40 cm/s Veda (R) 83.40/22.50 cm/s Veda (L) 99.40/27.80 cm/s pICA (R) 316.50/82.70 cm/s pICA (L) 72.60/18.00 cm/s dCCA (R) 86.10/14.40 cm/s dCCA (L) 70.00/16.00 cm/s pCCA (R) 82.90/15.50 cm/s pCCA (L) 73.20/13.40 cm/s Vert (R) 112.20/ cm/s Vert (L) 32.60/ cm/s ICA/CCA 3.70 ICA/CCA 1.40 Findings Duplex evaluation demonstrates stenosis of the right proximal internal carotid artery in the range of 50-69% with PSV =140 cm/sec, EDV <100 cm/sec, and IC/CC Ratio <4.0, upper end of scale. Duplex evaluation demonstrates stenosis of the left proximal internal carotid artery in the range of 20-49% with PSV <140 cm/sec, EDV <100 cm/sec, and IC/CC Ratio <4.0. Very difficult exam, suggests further testing. Thyroid cysts noted. Conclusion Duplex evaluation demonstrates stenosis of the right proximal internal carotid artery in the range of 50-69% with PSV =140 cm/sec, EDV <100 cm/sec, and IC/CC Ratio <4.0, upper end of scale. Duplex evaluation demonstrates stenosis of the left proximal internal carotid artery in the range of 20-49% with PSV <140 cm/sec, EDV <100 cm/sec, and IC/CC Ratio <4.0. Very difficult exam, suggests further testing. Electronically signed by : Guilherme Robbins MD 01/31/2021 19:31:11
== END ==
PROVIDERS: PCP Family Medicine; Visit Provider Psychiatry & Neurology Neurology
DX: I63.9 Cerebral infarction, unspecified (principal); I25.10 Atherosclerotic heart disease of native coronary artery without angina pectoris; I65.23 Occlusion and stenosis of bilateral carotid arteries
CPT/HCPCS: 93306; 93880

== ENCOUNTER → 2021-02-25 14:05 | Outpatient (CLI) | payer MEDICARE, OTHER, SELFPAY ==
--- NOTE | 2021-02-25 | CA_ITS ---
APPROVED REPORT Bilateral Lower Extremity Venous Study for Dye Weigher: CT Indications Lower Extremity Pain: Right Lower Extremity Edema: Right Risk Factors Obesity Vein Imaging CFV (R): compressive, spontaneous, phasic, augmentation SFJ (R): compressive, spontaneous, phasic, augmentation FEM (R): compressive, spontaneous, phasic, augmentation POP (R): compressive, spontaneous, phasic, augmentation DFV (R): compressive, spontaneous, phasic, augmentation PTV (R): difficult to image GSV (R): compressive, spontaneous, phasic, augmentation SSV (R): compressive, spontaneous, phasic, augmentation Peroneals (R):difficult to image GAS (R): compressive, spontaneous, phasic, augmentation Findings RLE negative for DVT/SVT Vessels compressible. PT and Peroneals difficult to image. RLE very angry, red, and warm to touch. Conclusion RLE negative for DVT/SVT Vessels compressible. PT and Peroneals difficult to image. Electronically signed by : Guilherme Robbins MD 02/26/2021 19:36:54
== END ==
PROVIDERS: PCP Family Medicine; Visit Provider Family Medicine
DX: M79.661 Pain in right lower leg (principal); L03.115 Cellulitis of right lower limb; R60.0 Localized edema
CPT/HCPCS: 93971

== ENCOUNTER 2021-04-06 02:28 | Inpatient (IN) | payer MEDICARE, OTHER, SELFPAY ==
[2021-04-06] VITALS (14 sets, daily range): BP systolic 152–186; BP diastolic 81–110; PULSE 70–101; RESP 17–20; TEMP 36.5–36.8; O2SAT 94–99; BMI 38.2; BMI 41.3
--- NOTE | 2021-04-06 02:46 | CT_ITS ---
PROCEDURE INFORMATION: Exam: CT Head Without Contrast Exam date and time: 04/06/2021 2:46 AM Age: 76 years old Clinical indication: Injury or trauma; Fall; Blunt trauma (contusions or hematomas); Consciousness not specified; Injury date: 04/06/2021; Injury details: Fell and hit back of her head, hematoma back of head TECHNIQUE: Imaging protocol: Computed tomography of the head without contrast. Radiation optimization: All CT scans at this facility use at least one of these dose optimization techniques: automated exposure control; mA and/or kV adjustment per patient size (includes targeted exams where dose is matched to clinical indication); or iterative reconstruction. COMPARISON: MR HEAD/BRAIN WO CON 06/20/2020 9:03 AM FINDINGS: Brain: There are areas of hyperattenuation involving left MCA and [employer] distributions with varying degrees of volume contraction suggesting subacute to chronic appearance. There is diffuse cortical volume loss and hypoattenuation of the deep white matter. No evidence of acute intracranial hemorrhage. No acute edema or shift. Cerebral ventricles: No ventriculomegaly. Paranasal sinuses: Visualized sinuses are unremarkable. No fluid levels. Mastoid air cells: Visualized mastoid air cells are well aerated. Bones/joints: Unremarkable. No acute fracture. Soft tissues: Unremarkable. IMPRESSION: 1. There are subacute to chronic multi-vessel infarct changes involving the left cerebral hemisphere. The infarcts were not present on the 06/20/2020 scan. Clinical correlation for possible acute superimposed over subacute infarct suggested. 2. Diffuse cortical atrophy and chronic deep white matter small vessel disease. 3. No acute intracranial hemorrhage or process.
--- NOTE | 2021-04-06 02:48 | XR_ITS ---
PROCEDURE INFORMATION: Exam: XR Pelvis Exam date and time: 04/06/2021 2:48 AM Age: 76 years old Clinical indication: Injury or trauma; Fall; Blunt trauma (contusions or hematomas); Bilateral; Pelvic region; Injury date: 04/06/2021 TECHNIQUE: Imaging protocol: XR pelvis. Views: 1 or 2 view. COMPARISON: CT ABDOMEN PELVIS WO CON 04/17/2020 2:01 PM FINDINGS: Bones/joints: Unremarkable. No acute fracture. Soft tissues: Unremarkable. IMPRESSION: No acute findings.
--- NOTE | 2021-04-06 02:48 | XR_ITS ---
PROCEDURE INFORMATION: Exam: XR Chest Exam date and time: 04/06/2021 2:48 AM Age: 76 years old Clinical indication: Injury or trauma; Fall; Blunt trauma (contusions or hematomas); Injury date: 04/06/2021 TECHNIQUE: Imaging protocol: XR of the chest. Views: 4 or more views. COMPARISON: CR XR CHEST 2V 04/19/2020 3:09 PM FINDINGS: Lungs: Unremarkable. No consolidation. Pleural spaces: Unremarkable. No pleural effusion. No pneumothorax. Heart/Mediastinum: Unremarkable. No cardiomegaly. Bones/joints: Unremarkable. IMPRESSION: No acute cardiopulmonary process.
--- NOTE | 2021-04-06 02:48 | CT_ITS ---
PROCEDURE INFORMATION: Exam: CT Cervical Spine Without Contrast Exam date and time: 04/06/2021 2:48 AM Age: 76 years old Clinical indication: Injury or trauma; Fall; Blunt trauma; Injury date: 04/06/2021; Injury details: Fell and hit back of head hematoma back of head TECHNIQUE: Imaging protocol: Computed tomography images of the cervical spine without contrast. Radiation optimization: All CT scans at this facility use at least one of these dose optimization techniques: automated exposure control; mA and/or kV adjustment per patient size (includes targeted exams where dose is matched to clinical indication); or iterative reconstruction. COMPARISON: NM BTBB NUC BONE SCAN-WHOLE BODY-TBB 09/28/2016 2:41 PM FINDINGS: Bones/joints: No acute fracture or dislocation. Discs/Spinal canal/Neural foramina: There are degenerative disc changes. Lungs: The lung apices are unremarkable. Soft tissues: Unremarkable. IMPRESSION: No acute fracture or dislocation. There is degenerative disc disease.
[2021-04-06 02:52] LABS: Basophils # 0.1 K/mm3 (0-0.2); Basophils % 0.8 % (0.1-2.0); Eosinophils # 0.2 K/mm3 (0.0-0.4); Eosinophils % 1.4 % (0.1-12.0); Hematocrit 46.5 % (37.0-47.0); Hemoglobin 15.4 g/dL (12.2-16.2); Lymphocytes # 1.3 K/mm3 (0.7-4.5); Mean Corpuscular Hemoglobin 30.8 pg (27.0-31.2); Mean Corpuscular Volume 93.1 fl (81-99); Mean Platelet Volume 9.8 fl (7.4-10.4); Monocytes # 0.6 K/mm3 (0.1-1.0); Monocytes % 4.9 % (1.7-9.3); Neutrophils # 10.8 K/mm3 (1.8-7.8); Neutrophils % 82.9 % (37.0-80.0); Platelet Count 202 K/mm3 (142-424); Red Blood Count 4.99 M/mm3 (4.20-5.40); Red Cell Distribution Width 13.4 % (11.5-17.5)
[2021-04-06 02:56] LABS: Alanine Aminotransferase 20 U/L (12-78); Albumin Level 4.2 g/dl (3.5-5.0); Albumin/Globulin Ratio 1.4 (1.1-1.8); Alkaline Phosphatase 117 U/L (38-126); Anion Gap 16.2 mEq/L (5-15); Aspartate Amino Transferase 31 U/L (14-36); Bilirubin,Total 0.7 mg/dl (0.2-1.3); Blood Urea Nitrogen 46 mg/dl (7-17); Calcium 9.4 mg/dl (8.4-10.2); Carbon Dioxide 19 mmol/L (22.0-30.0); Chloride 107 mmol/L (98-107); Creatinine Clearance Estimated 39 mL/min (50-200); Estimated Glomerular Filt Rate 24 ml/min (>60); GFR (African American) 29 ML/MIN (>60); Globulin 3.1 g/dL (1.3-3.2); Glucose 188 mg/dl (74-100); Potassium 4.2 mmoL/L (3.5-5.1); Sodium 138 mmol/L (136-145); Total Protein,Serum 7.3 g/dl (6.3-8.2)
--- NOTE | 2021-04-06 02:56 | ECG_ITS ---
APPROVED REPORT Exam: Resting ECG HR:96 bpm ECG Measurements Heart Rate 96 AXES VA 178 P 79 QRSd 68 QRS -16 QT 362 T 63 QTc 457 Conclusion Normal sinus rhythm Normal ECG Electronically signed by : Mickey Singh MD 04/11/2021 10:00:15
[2021-04-06 03:02] LABS: C-Reactive Protein 40.7 mg/L (0-4)
--- NOTE | 2021-04-06 03:06 | HMH.EDFALL ---
ED Disposition Clinical Impression: BMI 39.0-39.9,adult, Acute kidney injury Syncope Qualifiers: Syncope type: unspecified Qualified Code(s): R55 - Syncope and collapse Concussion with loss of consciousness Qualifiers: Encounter type: initial encounter Qualified Code(s): S06.0X9A - Concussion with loss of consciousness of unspecified duration, initial encounter Cerebrovascular accident Qualifiers: CVA mechanism: unspecified Qualified Code(s): I63.9 - Cerebral infarction, unspecified Disposition: Admitted as Observation Condition on Discharge: Fair Referrals: Danilo Durham MD [Primary Care Provider] - - Critical Care Critical Care Time: No Attestation: On , the high probability of a clinically significant, sudden or life threatening deterioration of the following system(s) required my full and direct attention, intervention and personal management. The time I documented below is in addition to time spent performing reported procedures but includes the following listed in this critical care notation. Medical Decision Making - Medical Records Medical records reviewed: Yes: I reviewed the patient's medical records. - Brennan Inquiry Pt receiving controlled substance: No Vital Signs: 04/06/21 02:16 04/06/21 03:00 04/06/21 03:28 Temperature 98.0 F 98.2 F Temperature Source Oral Oral Pulse Rate 88 101 H Pulse Rate [Apical] 100 H Respiratory Rate 18 17 17 Blood Pressure 176/90 H 152/96 H Blood Pressure [Right Arm] 176/90 H Blood Pressure Mean [Right Arm] 118 Blood Pressure Source Automatic Cuff Automatic Cuff Blood Pressure Source [Right Arm] Automatic Cuff Blood Pressure Position Supine Supine Blood Pressure Position [Right Arm] Sitting 02 Sat by Pulse Oximetry 98 95 94 L Oxygen Delivery Method Room Air Room Air Room Air 04/06/21 04:02 04/06/21 04:30 04/06/21 05:00 Temperature Temperature Source Pulse Rate 95 H 99 H 98 H Pulse Rate [Apical] Respiratory Rate Blood Pressure 165/92 H 165/92 H 177/110 H Blood Pressure [Right Arm] Blood Pressure Mean [Right Arm] Blood Pressure Source Automatic Cuff Automatic Cuff Automatic Cuff Blood Pressure Source [Right Arm] Blood Pressure Position Supine Supine Supine Blood Pressure Position [Right Arm] 02 Sat by Pulse Oximetry 96 95 96 Oxygen Delivery Method Room Air Room Air 04/06/21 05:26 Temperature Temperature Source Pulse Rate 93 H Pulse Rate [Apical] Respiratory Rate Blood Pressure 181/89 H Blood Pressure [Right Arm] Blood Pressure Mean [Right Arm] Blood Pressure Source Automatic Cuff Blood Pressure Source [Right Arm] Blood Pressure Position Supine Blood Pressure Position [Right Arm] 02 Sat by Pulse Oximetry 94 L Oxygen Delivery Method Room Air - Lab Data Lab results reviewed: Yes: I reviewed the patient's lab results. Lab Results 04/06/21 02:31: WBC 13.0 H, RBC 4.99, Hgb 15.4, Hct 46.5, MCV 93.1, MCH 30.8, MCHC 33.0, RDW 13.4, Plt Count 202, MPV 9.8, Neut % (Auto) 82.9 H, Lymph % (Auto) 10.0, [place] % (Auto) 4.9, Eos % (Auto) 1.4, Baso % (Auto) 0.8, Neut # (Auto) 10.8 H, Lymph # (Auto) 1.3, [place] # (Auto) 0.6, Eos # (Auto) 0.2, Baso # (Auto) 0.1, ESR 8 04/06/21 02:31: Sodium 138, Potassium 4.2, Chloride 107, Carbon Dioxide 19 L, Anion Gap 16.2 H, BUN 46 H, Creatinine 2.00 H, Estimated Creat Clear 39, Estimated GFR 24 L, Est GFR ( Amer) 29 L, Glucose 188 H, Calcium 9.4, Total Bilirubin 0.7, AST 31, ALT 20, Alkaline Phosphatase 117, Troponin I 0.02, C-Reactive Protein 40.7 H, Total Protein 7.3, Albumin 4.2, Globulin 3.1, Albumin/Globulin Ratio 1.4, Procalcitonin 0.204 04/06/21 02:31: Total Creatine Kinase 103 04/06/21 04:13: Urine Color Yellow, Urine Appearance Sl cloudy, Urine pH 5.0, Ur Specific [place] >= 1.030, Urine Protein Trace, Urine Glucose (UA) Negative, Urine Ketones Negative, Urine Blood Trace-i, Urine Nitrate Negative, Urine Bilirubin Negative, Urine Urobilinogen 0.2, Ur Leukocyte Esterase
[2021-04-06 03:11] LABS: Troponin I 0.02 ng/ml (0.00-0.034)
[2021-04-06 03:16] LABS: Procalcitonin 0.204 ng/mL (0.0-2.0)
[2021-04-06 03:27] LABS: Erythrocyte Sedimentation Rate 8 mm/hr (0-30)
--- NOTE | 2021-04-06 03:29 | PC.NURSE ---
pt to ct at this time
[2021-04-06 03:32] LABS: Creatine Kinase 103 U/L (30-135)
--- NOTE | 2021-04-06 04:01 | PC.NURSE ---
DR. LONG AT BEDSIDE.
--- NOTE | 2021-04-06 04:01 | PC.NURSE ---
pt back from ct at this time
--- NOTE | 2021-04-06 04:17 | PC.NURSE ---
DR. LONG SPEAKING TO [facility].
[2021-04-06 04:18] LABS: Microscopic, Urine URINE MICROSCOPIC (MICROSCOPIC)
[2021-04-06 04:23] LABS: Appearance,Urine SL CLOUDY (Clear); Blood, Urine TRACE-I (Negative); Color,Urine YELLOW (Yellow); Glucose,Urine (UA) Negative (Negative); Ketones,Urine Negative (Negative); Leukocyte Esterase,Urine Negative (Negative); Nitrate,Urine Negative (Negative); Protein,Urine TRACE (Negative); Specific Gravity, Urine >= 1.030 (1.005-1.030); Urobilinogen,Urine 0.2 EU/dl (0.2)
[2021-04-06 04:31] LABS: Bacteria,Urine 3+ /lpf; Bilirubin,Urine Negative (Negative); Mucus,Urine 1+ /lpf; RBC,Urine Occasional #/hpf (0-3); Squamous Epithelial Cell,Urine 20-50 #/hpf (0-5); WBC,Urine Occasional #/hpf (0-3)
[2021-04-06 05:00] LABS: Coronavirus 19, PCR Not Detected (NotDetected); Influenza A, PCR Not Detected (NotDetected); Influenza B, PCR Not Detected (NotDetected)
[2021-04-06 05:09] LABS: Lactic Acid 1.4 mmol/L (0.7-2.1)
--- NOTE | 2021-04-06 05:32 | PC.NURSE ---
Dr. Fuchs s/w Dr. Singh
--- NOTE | 2021-04-06 05:53 | PC.NURSE ---
Patient is currently resting in bed. Patient is alert and oriented to self, however, she did struggle initially with the current year. Patient seems confused intermittently and unable to recall what her thoughts were when discussing things with you. MD is aware of the patients condition. Patients follows commands, burlapper are strong and equal, pulses are equal and reactive.
--- NOTE | 2021-04-06 06:18 | PC.NURSE ---
gave report to Mercedes THOMSON in OB
--- NOTE | 2021-04-06 06:20 | PC.NURSE ---
REPORT RECIEVED EARLENERN
[2021-04-06 07:23] LABS: Troponin I 0.02 ng/ml (0.00-0.034)
--- NOTE | 2021-04-06 08:38 | HMH.HP ---
*Admission Date: 04/06/21 *Chief complaint: Fall at home *History of present illness: 76-year-old female presented to the emergency department after a fall at home. Ultimately patient has been diagnosed with possible acute superimposed on subacute stroke and does have some mild expressive aphasia. She is able to state that she was getting herself a glass of tea when she felt lightheaded and the next and she recalls she woke up on the floor. Patient does have frequent falls at home but these are typically do to chronic weakness in the right leg and ankle. She denies prior history of syncope. Patient twice denies during interview that she became choked causing her to pass out. Patient was brought to the emergency department for further evaluation. Patient did seem confused. She did have some mild aphasia. Imaging of the brain revealed subacute left-sided infarcts with questionable superimposition of acute stroke. Patient was admitted and continued on her Brilinta. Patient will also be given aspirin this morning. In the ER there was an old MRI to compare to which showed the left-sided lesions to be new. Old MRI had previously showed a left frontal lobe infarct. [facility] History I have reviewed the patient's past medical history: Yes Medical History: Reports:: Coronary Artery Disease, Cerebrovascular Accident, Deep Vein Thrombosis, Depression, Hyperlipidemia, Hypertension, Kidney Stones, Myocardial Infarction, Peripheral Artery Disease Denies:: Cancer, Diabetes Mellitus Type 1, Diabetes Mellitus Type 2, Internal Pacemaker, MRSA *Have you ever received a pneumonia vaccine?: Yes *Have you received a flu vaccine this season?: Yes Other Medical History: Reports: Arthritis, Hypothyroidism, Sinus Problems, Thyroid Disease, Other Laterality Cases: Bilateral: Tonsillectomy, Other Other Surgeries: Yes: Angiogram, Appendectomy, Cardiac Catheterization, Colonoscopy, Coronary Stent, Dilation and Curettage (x2), Hysterectomy-Total. No: Pacemaker Amputation: No Fractures: Yes (Right ankle. ) - *Social History Smoking Status: Never smoker # Packs/Day (cigarettes): 1 Alcohol Intake: never Alcohol Intake Frequency:: other Substance Use Type: denies use *Occupational Status:: disabled Housing: house Household Members: spouse *Travel in the last 8 weeks: None - Psychiatric History Pschychiatric History:: Reports:: Depression Family Hx:: Unable to obtain Review of Systems - Constitutional Denies anorexia, Denies body ache(s), Denies chills, Denies lack of energy, Denies malaise, Denies night sweats - Eyes Denies blind spots, Denies blurry vision - ENT Denies abnormal hearing, Denies difficulty swallowing - *Cardiovascular Reports leg pain with activity (Chronic right lower leg), Denies chest pain, Denies chest pain at rest, Denies chest pain with activity, Denies excessive sweating, Denies irregular heart rhythm, Denies shortness of breath when lying down - *Respiratory Denies change in phlegm color, Denies chest congestion, Denies cough, Denies shortness of breath - *Gastrointestinal Denies abdominal pain - *Genitourinary Denies abnormal vaginal bleeding, Denies painful urination - *Musculoskeletal Reports abnormal walking, Reports joint pain (Right ankle), Reports muscle weakness (Right lower leg), Denies decreased muscle mass, Denies body aches, Denies neck pain, Denies numbness - Integumentary/Breasts Reports redness (Right lower leg) - *Neurologic Reports abnormal speech (Word finding difficulties), Reports confusion, Reports dizziness, Reports frequent falls, Reports headache(s), Denies abnormal walking, Denies abnormal hearing, Denies abnormal movements, Denies behavioral changes, Denies localized weakness, Denies lack of coordination, Denies loss of vision, Denies memory loss, Denies numbness, Denies other visual disturbances, Denies tingling/numbness/burning sensations, Denies seizure-like activity Meds Home Medications Medication I
[2021-04-06 09:03] LABS: Chol/HDL Ratio 4.5 (1-3.5); Cholesterol 180 mg/dl (140-200); HDL Cholesterol 40 mg/dl (40-60); Triglycerides 200 mg/dl (30-150); VLDL Cholesterol 40 mg/dL (0-40)
[2021-04-06 09:14] LABS: Direct LDL Cholesterol 107.47 mg/dL (100-129)
--- NOTE | 2021-04-06 09:30 | PC.NURSE ---
LAB AT BEDSIDE- PATIENT ABLE TO TELL FIRST NAME, BUT UNABLE TO TELL REST OR BIRTHDATE. PT RAMBLING WITH SPEECH.
--- NOTE | 2021-04-06 15:38 | HMH.PHAVTE ---
[facility] Pharmacy VTE Monitoring - Patient Demographics Admission date: 04/06/21 Report Date: 04/06/21 Time: 15:00 Allergies/Adverse Reactions: Patient Allergies iodine Allergy (Unknown, Verified 04/17/20 12:14) NSAIDS (Non-Steroidal Anti-Inflamma Allergy (Unknown, Verified 04/17/20 12:14) Height: 1.65 m Weight: 112.633 kg Patient Problems: Current Active Problems Acute kidney injury (Acute) Syncope (Acute) Concussion with loss of consciousness (Acute) CVA (cerebral vascular accident) (Acute) Essential hypertension (Acute) Cardiovascular disease (Acute) BMI 39.0-39.9,adult (Acute) Cerebrovascular accident (Acute) - VTE Risk Labs: VTE Related Lab Results Hgb 15.4 g/dL (12.2-16.2) 04/06/21 02:31 Hct 46.5 % (37.0-47.0) 04/06/21 02:31 Plt Count 202 K/mm3 (142-424) 04/06/21 02:31 BUN 46 mg/dl (7-17) H 04/06/21 02:31 Creatinine 2.00 mg/dl (0.52-1.04) H 04/06/21 02:31 Estimated Creat Clear 39 mL/min (50-200) 04/06/21 02:31 Was VTE Risk Assessment Performed: Yes VTE Score: 7 VTE Risk Level: Moderate Risk - Prophylaxis Types of VTE Prophylaxis: TEDS Knee High Location of Applied Device: Bilateral Lower Extremeties (YASIR HOSE ORDERED)
--- NOTE | 2021-04-06 16:00 | PC.NURSE ---
NO CHANGES NOTED SINCE PREVIOUS ASSESSMENT. PT IS ALERT AT TIMES, MOST TIMES PATIENT UNABLE TO PUT WORDS TOGETHER. PULSES 2+, STRENGTH EQUAL IN BOTH EXTREMITIES. NO EDEMA NOTED. PT REPORTS HEAD BEING SLIGHTLY SORE NOW. MEDICATED EARLIER FOR BACKACHE. RIGHT LEG- SCABS AND DRY SCALY SKIN NOTED. IV INFUSING WITHOUT DIFFICULTY. LUNGS CTA AND BOWEL SOUNDS ACTIVE X4. PT VOIDING WELL. TOLERATING DIET WELL. ALARM ON. NO NEEDS
--- NOTE | 2021-04-06 16:12 | PC.NURSE ---
Contacted by pharmacy in reference to pt home medication list not being reconciled. pt is unable to recall all of the meds she is on, r/t memory difficulty at this time. (MD is aware of memory issues). attempted to contact [facility] in [place] for medication list, meds have not been filled with them since 12/2019. Spoke with Brigido in pharmacy and informed him of the situation. pt also uses mail order pharmacy, in pharmacy to contact mail order pharmacy about medication list. primary RN updated.
[2021-04-07 04:00] VITALS: BP 160/75; PULSE 54; RESP 17; TEMP 36.5; O2SAT 97
--- NOTE | 2021-04-07 04:30 | PC.NURSE ---
pt has slept in intervals this shift. BLT lungs CTA throughout, Bowels sounds present throughout. IV patent and infusing well. Pt alert and oriented to name, , and situation. Pt could not tell me the year. Pt with assist x1 to the bathroom. no edema noted. Knot still noted to the back of the head. no change in size. Pt denies SOA, N/V, or pain at this time. Pt medicated per eMAR for headache this shift
--- NOTE | 2021-04-07 06:10 | PC.NURSE ---
Pt IV infiltrated. New IV started Lt arm
[2021-04-07 06:14] VITALS: BMI 42.0
--- NOTE | 2021-04-07 07:30 | HMH.ACPN2 ---
Internal Medicine - PN: Subj *Date: 04/07/21 *Time: 07:30 Interval history: No changes over the last 24 hours. Patient reports feeling well. Nursing staff reports patient has trouble with the year otherwise is oriented. Exam Vital signs and Labs for Last 24 Hours: Temp Pulse Resp BP Pulse Ox 97.7 F 54 L 17 160/75 H 97 04/07/21 04:00 04/07/21 04:00 04/07/21 04:00 04/07/21 04:00 04/07/21 04:00 Laboratory Results - last 24 hr 04/06/21 06:55: Triglycerides 200 H, Cholesterol 180, LDL Cholesterol Direct 107.47, VLDL Cholesterol 40, HDL Cholesterol 40, Cholesterol/HDL Ratio 4.5 H I & O for Last 24 hours: Intake & Output 04/04/21 04/05/21 04/06/21 04/07/21 11:59 11:59 11:59 11:59 Intake Total 1530 / 1530 Balance 1530 / 1530 Weight 248 lb 5 oz 252 lb Microbiology Reports for the Last 24 Hours: Microbiology 04/06/21 04:13 Urine,Catheterized Urine Culture - Preliminary NO GROWTH AFTER 24 HOURS - Constitutional no acute distress - *Routine Respiratory Exam Present: CTA bilaterally - *Routine Cardiovascular Exam Present: RRR Assessment and Plan (1) CVA (cerebral vascular accident) Status: Acute Category: Medical Code(s): I63.9 - Cerebral infarction, unspecified (2) Acute kidney injury Status: Acute Category: Medical Code(s): N17.9 - Acute kidney failure, unspecified (3) Essential hypertension Status: Acute Category: Medical Code(s): I10 - Essential (primary) hypertension (4) Cardiovascular disease Status: Acute Category: Medical Code(s): I25.10 - Atherosclerotic heart disease of [place] coronary artery without angina pectoris - Assessment and plan all Dx Assessment and Plan for all problems:: 1. Increase lisinopril to 20 mg daily 2. DC IV fluids 3. Therapy eval's today by stroke team 4. MRI brain
[2021-04-07 07:52] LABS: Basophils # 0.1 K/mm3 (0-0.2); Basophils % 0.8 % (0.1-2.0); Eosinophils % 0.3 % (0.1-12.0); Hematocrit 40.2 % (37.0-47.0); Hemoglobin 13.2 g/dL (12.2-16.2); Lymphocytes # 1.4 K/mm3 (0.7-4.5); Lymphocytes % 12.3 % (10-50); Mean Corpuscular HGB Conc 32.9 g/dL (31.8-35.4); Mean Corpuscular Hemoglobin 30.5 pg (27.0-31.2); Mean Corpuscular Volume 92.8 fl (81-99); Mean Platelet Volume 8.5 fl (7.4-10.4); Monocytes # 0.5 K/mm3 (0.1-1.0); Monocytes % 4.6 % (1.7-9.3); Neutrophils # 9.1 K/mm3 (1.8-7.8); Platelet Count 188 K/mm3 (142-424); Red Blood Count 4.33 M/mm3 (4.20-5.40); Red Cell Distribution Width 13.4 % (11.5-17.5); White Blood Count 11.1 K/mm3 (4.8-10.8)
[2021-04-07 07:58] LABS: Chloride 114 mmol/L (98-107); Sodium 142 mmol/L (136-145)
[2021-04-07 07:59] LABS: Potassium 4.2 mmoL/L (3.5-5.1)
[2021-04-07 08:00] VITALS: BP 147/60; PULSE 72; RESP 16; TEMP 36.5; O2SAT 95
[2021-04-07 08:01] LABS: Blood Urea Nitrogen 38 mg/dl (7-17); Creatinine Clearance Estimated 29 mL/min (50-200); Estimated Glomerular Filt Rate 36 ml/min (>60); GFR (African American) 44 ML/MIN (>60)
[2021-04-07 08:02] LABS: Anion Gap 15.2 mEq/L (5-15); Calcium 8.4 mg/dl (8.4-10.2); Carbon Dioxide 17 mmol/L (22.0-30.0); Glucose 166 mg/dl (74-100); Magnesium 1.9 mg/dl (1.6-2.3)
--- NOTE | 2021-04-07 08:26 | MR_ITS ---
PROCEDURE: MR HEAD/BRAIN WO CON CLINICAL INDICATION: CVA Confusion COMPARISON: CT CT HEAD/BRAIN WO CON from 04/17/2020 MR MR HEAD/BRAIN WO CON from 06/20/[address] HEAD/BRAIN WO CON from 04/06/2021 TECHNIQUE: Routine multiplanar multi echo sequences are performed without gadolinium enhancement. FINDINGS: There is diffuse atrophy with periventricular and subcortical T2 white matter hyperintensities. Diffusion-weighted images shows a small area of increased diffusion signal with isointense ADC signal in the left balderas radiata posteriorly suggesting a subacute area of infarction. No acute areas of infarction are apparent. On the CT scan there were new areas of decreased attenuation in the left temporal parietal occipital junction. This area does demonstrate some increased T2 signal and mixed FLAIR signal but does not show restricted diffusion. This does not demonstrate signal characteristics of an acute infarction and is consistent with a chronic area of infarction. Small area of curvilinear decreased flash signal is present in this region suggesting a small area of hemorrhage possibly chronic. In the left frontal region there is an additional chronic area of infarction not significantly changed. No midline shift or mass effect. The cerebellopontine angles and cerebellum have an unremarkable appearance. The pituitary, optic chiasm, corpus callosum, and craniocervical junction are unremarkable. Slight increased T2 signal involves the mastoid sinuses. No sinus air-fluid level of the paranasal sinuses. IMPRESSION: 1. Atrophy with chronic ischemic gliotic changes. 2. Small area of suspected subacute infarction in the left balderas radiata 3. Chronic infarctions in the left frontal lobe and temporal parietal occipital junction with a small bandlike area of decreased flash signal at the temporal parietal junction consistent with a small area of hemorrhage which may be chronic. Dictated by: Guilherme Robbins MD 04/07/2021 09:58 Guilherme Robbins MD in [place] 04/07/2021 09:58
--- NOTE | 2021-04-07 08:50 | PC.NURSE ---
08:36 Pt. to MRI via wheelchair accompanied by MRI staff.
--- NOTE | 2021-04-07 08:51 | PC.NURSE ---
08:00 - Routine assessment completed. VSS. Pt. A&O x4, Pt. denies pain currently. reports head gets sore where she bumped it, but only when she accidentally touches it, bruising noted to bump on head. See Nursing biophysical for complete assessment. Nurse informed pt of MRI. Necklace removed. Pt denies having any other jewelry or metal on. Necklace placed in denture cup on overbed table. Pt. denies needs, call light within reach, will continue to monitor.
--- NOTE | 2021-04-07 09:34 | PC.NURSE ---
09:25 Pt. returned to room via wheelchair, accompanied by MRI staff x1.
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
--- NOTE | 2021-04-07 11:13 | HMH.PTEV ---
Physical Therapy Evaluation Rehab PT IP Evaluation Start: 04/06/21 08:47 Freq: ONCE Status: Active Protocol: Document 04/07/21 11:00 YESSY (Rec: 04/07/21 11:13 YESSY [id number]) Subjective/History History History Pt admitted to [facility] from home due to fall caused by possible syncopal episode and possibly new onset CVA Subjective Subjective no complaints from pt - pt has aphasic speech w/ difficulty finding words Rehab PT IP Eval Objective Appearance Patient Behavior Appropriate,Cooperative Patient Orientation Person,Place,Time Difficulty following instructions none Speech Pattern Appropriate,Difficulty Finding Words Ambulation Patient Able to Ambulate Yes Ambulation Observation IP General Gait Pattern Observation Wide Based Gait Ambulation Distance (feet) 40 Ambulation Assistive Device None Ambulation Ability Contact Guard/Hand Hold Balance Ability to Arise Able, uses arms to help Sitting Balance Steady, safe Standing Balance Steady, wide stance Dynamic Sitting Balance Ability Good Dynamic Standing Balance Ability Fair Transfers Bed Transfer Ability Independent Chair Transfer Ability Independent Sit to Stand Bed Transfer Ability Independent Sit to Stand Chair Transfer Ability Independent Rehab PT IP prob,goals,plan Problems Date of Evaluation: 04/07/21 PT IP Problems Transfers,Balance,Safety Rehab Potential Rehab Potential Good Equipment Needs Assistive Devices Rolling / Wheeled Walker Plan PT Intervention Plan Transfers,Gait,Safety, Therapeutic Exercise PT Plan Frequency BID Duration LOS Discharge Goals Ambulation Assistive Device Rolling Walker Ambulation Distance (feet) 40 Discharge Plan PT Discharge Plan pt safe to return home once medically stable but would continue to benefit from skilled therapy to iprove endurance, balance, and level of function once home. G -code Required Yes Eval Complexity Eval Charge Codes 67697 - Low Complexity G Codes PT Current Status Mobility PT Current Status Modifier CJ-At least 20% but less than 40% impaired, limited or restricted PT Goal Status Mobil
[2021-04-07 12:45] VITALS: BP 137/71; PULSE 64; RESP 18; TEMP 36.4; O2SAT 97
--- NOTE | 2021-04-07 14:15 | HMH.SLAPHASI ---
Speech & Language Evaluation Speech/Language Aphasia Evaluation Start: 04/07/21 13:43 Freq: once Status: Complete Protocol: Document 04/07/21 13:43 ELIER (Rec: 04/07/21 14:15 [email or web address] [id number]) Aphasia Assessment/Goals/Plan Assessment Date of Evaluation: 04/07/21 Evaluation Type Initial Certification Assessment/Problems Patient admitted to [facility] from home following a fall and possible acute CVA. Does Patient Qualify for Service Yes Qualify/Failure Comment Based on the results of today' s assessment, pt does require skilled speech therapy services at this time. Plan Pt will be seen # times/week 3 for # weeks 4 Anticipate reaching STG in # weeks 2 Anticipate reaching LTG in # weeks 4 Pt/Guardian verbally ack understanding Yes of dx/prognosis/goals Pt/Guardian verbally ack understanding Yes of/consent to tx prog G -code Required No STG-Auditory Comprehension 2nd Element 80 STG-Verbal Expressive Language Sentence Completion 80 Repetitive Abilities 80 Word Naming 80 Naming Actions & Describing Objects 80 Longterm Goals Increase auditory comprehension skills Yes to communicate w/family & friends Increase verbal expression skills to Yes communicate w/family & friends. Education Instructions provided Assessment results, POC, and goals discussed with Pt and nursing. Pt/Caregiver Able to Recall Information Unable to ind. understand Reinforcement needed No Speech & Language HPI Language Primary Language [place] Lang/Spoken in Home [place] Accent Affect Communication? Yes Aphasia Evaluations Communication Auditory Comprehension Yes: Word Level Sentences No: Following Directions Paragraph Conversation Reading Comprehension Yes: Letter Naming Word Naming Sentences No: Paragraphs Verbal Expressive Language Yes: Automatic Speech Word Level Naming No: Completing Sentences Repetition Abilities Naming Actions/Objects PHYSICIAN CERTIFICATION: I certify the specified therapy services for Kay Harris are required, authorized, and reviewed every 30 days.
--- NOTE | 2021-04-07 14:38 | HMH.SLDYSPHA ---
Speech & Language Evaluation Speech/Language Dysphagia Evaluation Start: 04/07/21 14:15 Freq: ONCE Status: Active Protocol: Document 04/07/21 14:15 [email or web address] (Rec: 04/07/21 14:38 ELIER [id number]) Dysphagia Assess/Goals/Plan Assessment Date of Evaluation: 04/07/21 Evaluation Type Initial Certification Assessment/Problems Pt admitted to [facility] following a fall with possible acute CVA Does Patient Qualify for Service No Qualify/Failure Comment Based on the results of today' s assessment, no skilled dysphagia therapy warranted at this time. Recommendations PHYSICIAN CERTIFICATION: The specified therapy services are required, authorized, and reviewed every 30 days. Diet Recommendations Normal Liquid Type Recommendations Normal/Thin Dysphagia Swallow Precautions/Strategies Small Bites and Sips Plan Pt/Guardian verbally ack understanding Yes of dx/prognosis/goals Pt/Guardian verbally ack understanding Yes of/consent to tx prog G -code Required No Education Instructions provided Diet recommendations discussed with pt and nursing Pt/Caregiver able to recall information Unable to ind. understand Reinforcement needed No Speech & Language HPI Language Primary Language [place]ian [place] Lang/Spoken in Home Bulgarian Accent Affect Communication? Yes General Information General Current Food Consistancy Regular,Thin Liquids Oxygen Status Room Air Facial Symmetry Symmetrical Patient Orientation Person,Place,Time,Situation Ability to Follow Directions Good Communication Ability Moderate Impairment Dysphagia:Food Presentation Evaluation Food Type Regular,Liquid Normal/Thin Liquid Response Coughing after swallow Dysphagia Evaluation Summary Clinical swallow evaluation completed to analyze and assess oropharyngeal swallow. No overt s/sxs of aspiration with regular sips of thin liquids or with regular solids . Pt attempted 3oz water test and did cough with large consecutive sips via straw. No oral residue noted with solid and adequate mastication was observed. Recommending: regular diet, thin liquids, small sips. Stroke Dysphagia Assessment PHYSICIAN CERTIFICATION:
[2021-04-07 16:00] VITALS: BP 164/78; PULSE 68; RESP 18; TEMP 36.7; O2SAT 95
--- NOTE | 2021-04-07 16:34 | PC.NURSE ---
Routine reassessment completed. BP noted to be elevated at 164/78, All other VSS. No further acute changes noted from previous assessment. Pt. remains A&O X4, Lungs are CTA, Heart at RRR. BS remain active, Bump on back of head noted to have lessened, bruising remains. Pt. denies pain at this time. Pt. resting in bed, denies needs, will continue to monitor.
--- NOTE | 2021-04-07 17:53 | PC.NURSE ---
[id number] Nurse to room to help pt. to bathroom. Pt. requests Tylenol, as her butt and back are sore, given see EMAR. Pt. reports IV hurting. Knot noted above IV in left forearm. Nurse flushed IV, IV noted to be infiltrated. IV Removed. New 20G IV placed in RAC. Pt. tolerated well. Call light within reach, will continue to monitor.
--- NOTE | 2021-04-07 19:41 | PC.NURSE ---
Pt up to bathroom. Pt ambulates well with standby assist. Encouraged to use call light. Pt denies needs. Personal belongings, phone and call light within reach. Pt door open by request. Will continue to monitor.
[2021-04-07 20:10] VITALS: BP 159/80; PULSE 63; RESP 17; TEMP 36.6; O2SAT 98
--- NOTE | 2021-04-07 20:30 | PC.NURSE ---
2010- SHIFT ASSESSMENT COMPLETED. PT ALERT AND FULLY ORIENTED X4. FUMBLED OVER 1 WORD THROUGHOUT CONVERSATION (USED THE WORD BOOK INSTEAD OF HAND , BUT QUICKLY CORRECTED HERSELF). OVERALL, SPEECH CLEAR AND APPROPRIATE. PT REPORTS NO PAIN AT THIS TIME BUT STATES THE BUMP ON HER HEAD HAS BEEN SORE AT TIMES TODAY. FULL ASSESSMENT- SEE NURSING BIOPHYSICAL. PT HAS CALL LIGHT IN REACH AND ENCOURAGED TO USE IT FOR ASSISTANCE AMBULATING. V/U. NO NEEDS VOICED. WILL CONTINUE TO MONITOR
--- NOTE | 2021-04-07 22:08 | PC.NURSE ---
2144- Pt up to bathroom. Reporting a spasm like pain in the right sciatic area. States that this type of pain is not new for her and has been intermittent over the past several weeks prior to her fall. Tylenol requested and given per jun. Pt in bed and pain mostly relieved with positioning. Call bed in reach. Will continue to monitor
[2021-04-08 00:25] VITALS: BP 161/78; PULSE 63; RESP 18; TEMP 36.6; O2SAT 98
[2021-04-08 04:00] VITALS: BP 142/84; PULSE 64; RESP 20; TEMP 36.7; O2SAT 98
--- NOTE | 2021-04-08 04:15 | PC.NURSE ---
0400- Routine reassessment completed. No acute changes this shift. Pt remains A&O x4 but recalling dates takes her some time and she fumbles over incorrect numbers several times before she does correctly states birthdate and current date. Iv in right AC remains patent. VSS, ambulates well with standby assist. Pt denies all pain. Bump on back of head unchanged and bruising remains the same as well. Lungs CTAB, bowel sounds present X4 quadrants. Call light in reach.
[2021-04-08 06:00] VITALS: BMI 42.3
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
[2021-04-08 08:00] VITALS: BP 151/73; PULSE 66; RESP 20; TEMP 36.8; O2SAT 96
--- NOTE | 2021-04-08 08:33 | PC.NURSE ---
08:00 - Routine assessment completed. See Nursing shift biophysical. Pt. noted to have hives all over body, Pt. report being very itchy, Pt. only able to state her name and year, Pt. focused on scratching hives, Nurse will call MD for further orders.
--- NOTE | 2021-04-08 09:50 | SW/DCPLANNER ---
RECEIVED REFERRAL FOR HOME HEALTH SERVICES... PATIENT IS DISCHARGING HOME TODAY AND WILL RECEIVE HOME HEALTH WITH [facility] HOME FOR PT/OT AND SHELTER.. 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
--- NOTE | 2021-04-08 10:59 | PC.NURSE ---
10:30 - Hives noted to be have lessened and pt. reports itching has gone away. Pt. denies needs, will continue to monitor.
--- NOTE | 2021-04-08 11:03 | PC.NURSE ---
10:35 - Discharge education provided. Questions encouraged and answered. Pt. v/u. IV removed at this time. Pt. tolerated well.
--- NOTE | 2021-04-08 11:07 | PC.NURSE ---
10:40 - Pt. left unit via wheelchair to private vehicle. Accompanied by staff x1. Family member met pt. and staff in front lobby.
== END 2021-04-08 10:40 | disposition home health service (06) | DRG 65 ==
LOC: ER 03:28 → OB 06:00
PROVIDERS: Admitting Provider Internal Medicine Adolescent Medicine; Emergency Provider Emergency Medicine; PCP Family Medicine; Visit Provider Family Medicine
DX: N17.9 Acute kidney failure, unspecified (principal); Z79.01 Long term (current) use of anticoagulants; I69.322 Dysarthria following cerebral infarction; I69.320 Aphasia following cerebral infarction; I10 Essential (primary) hypertension; I63.9 Cerebral infarction, unspecified; R29.6 Repeated falls; Z95.5 Presence of coronary angioplasty implant and graft; R55 Syncope and collapse; W01.0XXA Fall on same level from slipping, tripping and stumbling without subsequent striking against object, initial encounter; Z91.81 History of falling; Y92.010 Kitchen of single-family (private) house as the place of occurrence of the external cause
CPT/HCPCS: 36415; 70450; 70551; 71045; 72125; 72170; 80048; 80053; 80061; 81001; 82550; 83605; 83735; 84145; 84484; 85025; 85651; 86140; 87040; 87086; 92523; 92610; 93005; 96365; 96367; 96375; 97161; 97165; 97530; 99285; C9803; U0003; U0005

== ENCOUNTER 2021-04-24 12:35 | Emergency (ER) | payer MEDICARE, OTHER, SELFPAY ==
[2021-04-24 12:47] VITALS: BP 153/94; PULSE 71; RESP 22; TEMP 36.6; O2SAT 97; BMI 39.9
[2021-04-24 13:00] VITALS: BP 145/78; PULSE 78; RESP 16; O2SAT 98
--- NOTE | 2021-04-24 13:06 | XR_ITS ---
FINAL REPORT CLINICAL HISTORY: pain, woke up with pain, no known injury FINDINGS: RIGHT WRIST Three views demonstrate no acute fracture or dislocation. There are severe degenerative changes of the 1st carpometacarpal joint. Mild degenerative changes are seen elsewhere. The soft tissues are unremarkable. IMPRESSION: Severe degenerative changes of the 1st carpometacarpal joint without acute bony abnormality. Reviewed, Interpreted and Dictated by Sky Ryan III, MD Transcribed by Tara Porras Authenticated by Sky Ryan III, MD on 04/24/2021 01:54:47 PM [facility]
[2021-04-24 14:57] VITALS: BP 154/74; PULSE 78; RESP 16; O2SAT 98
--- NOTE | 2021-04-24 15:09 | HMH.EDGENADL ---
ED Disposition Clinical Impression: Right hand pain Disposition: Home, Self-Care Condition on Discharge: Good Instructions: DI for Musculoskeletal Pain, Osteoarthritis Additional Instructions: follow up PCP Prescriptions: Hydrocod/Acet 5/325 mg [[place] 5/325mg tablet] 1 tab PO Q6HP PRN 3 Days #10 tab PRN Reason: Moderate Pain Prescription Printed Meloxicam [Mobic 7.5mg Tab] 7.5 mg PO DAILY #10 tab Transmission Status: Pending to [id number] Referrals: Danilo Durham MD [Primary Care Provider] - - Critical Care Critical Care Time: No Attestation: On 04/24/21, the high probability of a clinically significant, sudden or life threatening deterioration of the following system(s) required my full and direct attention, intervention and personal management. The time I documented below is in addition to time spent performing reported procedures but includes the following listed in this critical care notation. Medical Decision Making - Brennan Inquiry Pt receiving controlled substance: Yes Brennan was queried for this patient: No Risks and benefits of using a controlled substance: were discussed with pt by me Vital Signs: 04/24/21 12:47 Temperature 98 F Temperature Source Oral Pulse Rate [Radial] 71 Respiratory Rate 22 Blood Pressure [Right Arm] 153/94 H Blood Pressure Mean [Right Arm] 113 Blood Pressure Position [Right Arm] Sitting 02 Sat by Pulse Oximetry 97 Oxygen Delivery Method Room Air General Adult HPI - General Chief complaint: PAIN Stated complaint: can't move left arm Time Seen by Provider: 04/24/21 12:37 Mode of Arrival: Wheelchair Limitations: No Limitations Description of Symptoms (Recalled from ER Triage Doc. by RN): to ed per pvt car with c/o rt lower arm and wrist pain states pain woke her up at 5am. pt denies any injury, denies any shoulder pain. pt states she took tylenol at 5am with no relief of symptoms. - History of Present Illness HPI narrative: woke ip with rt hand and wrist pain this am Onset (ago): hour(s) Radiation: non-radiation Severity: moderate Quality: constant Consistency: constant Relieving factors: immobilization Exacerbating factors: movement Associated symptoms: denies other symptoms - Related Data Home Medications Medication Instructions Recorded Confirmed duloxetine 60 mg capsule,delayed 60 mg PO DAILY 30 Days #30 10/12/17 04/08/21 release Aspirin [Aspirin 81mg EC Tab] 81 mg PO DAILY 08/03/19 04/08/21 Atorvastatin Calcium [Lipitor 40mg 40 mg PO HS 04/18/20 04/08/21 Tablet*] Metoprolol Succinate [Metoprolol 50 mg PO DAILY 04/18/20 04/18/20 Succinate 50mg Tablet*] Ticagrelor [Brilinta 90mg 90 mg PO BID 04/18/20 04/18/20 Tablet] Previous Rx's Medication Instructions Recorded lisinopriL [Lisinopril] 20 mg PO DAILY #30 tab 04/08/21 Hydrocod/Acet 5/325 mg [[place] 1 tab PO Q6HP PRN 3 Days #10 tab 04/24/21 5/325mg tablet] Meloxicam [Mobic 7.5mg Tab] 7.5 mg PO DAILY #10 tab 04/24/21 Allergies Allergy/AdvReac Type Severity Reaction Status Date / Time ceftriaxone [From Rocephin] Allergy Severe Hives Verified 04/08/21 08:16 iodine Allergy Unknown Verified 04/17/20 12:14 NSAIDS (Non-Steroidal Allergy Unknown Verified 04/17/20 12:14 Anti-Inflamma [facility] History - Hepatitis A Screen Drug use history?: No High risk sexual behaviors?: No History of sexually transmitted infection?: No Currently employed?: No Childcare worker?: No Do you have indoor plumbing?: Yes Do you have electricity?: Yes Attestation statement:: This patient has been screened for Hepatitis A risk factors. Medical History: Reports:: Coronary Artery Disease, Cerebrovascular Accident, Deep Vein Thrombosis, Depression, Hyperlipidemia, Hypertension, Kidney Stones, Myocardial Infarction, Peripheral Artery Disease Denies:: Cancer, Diabetes Mellitus Type 1, Diabetes Mellitus Type 2, Internal Pacemaker, MRSA Other Medical History:
[2021-04-24 18:56] VITALS: BP 154/78; PULSE 78; RESP 16; TEMP 36.6; O2SAT 98
== END 2021-04-24 18:57 | disposition home or self-care (01) ==
PROVIDERS: Emergency Provider Emergency Medicine; PCP Family Medicine
DX: M79.641 Pain in right hand (principal); I25.10 Atherosclerotic heart disease of native coronary artery without angina pectoris; I10 Essential (primary) hypertension; E78.5 Hyperlipidemia, unspecified; E03.9 Hypothyroidism, unspecified
CPT/HCPCS: 73110; 99282

== ENCOUNTER → 2021-07-01 16:08 | Outpatient (CLI) | payer MEDICARE, OTHER, SELFPAY ==
--- NOTE | 2021-07-01 16:23 | MR_ITS ---
PROCEDURE INFORMATION: Exam: MR Right Upper Extremity Joint Without Contrast; Shoulder Exam date and time: 07/01/2021 4:33 PM Age: 76 years old Clinical indication: Pain; Shoulder; Right; Prior surgery; Additional info: Acute pain of RT shoulder, decreased rom of RT shoulder. Weakness. Soreness when raising arm x15yrs ago. Prior HX shoulder surgery. TECHNIQUE: Imaging protocol: MR of the Right upper extremity without contrast. Exam focused on the shoulder. COMPARISON: 1. NM BTBB NUC BONE SCAN-WHOLE BODY-TBB 09/28/2016 2:[address] CERVICAL SPINE WO CON 04/06/2021 3:38 AM FINDINGS: Limitations: . This study is significantly limited by artifact from suture anchors in the humeral head and motion artifact. Bones and cartilage: Suture anchors in the humeral head are visible on the CT cervical spine topogram. The suture anchors produce significant susceptibility artifact obscuring and distorting the adjacent tissues. Within the limits of artifact, there is no fracture or suspicious bone lesion. The undersurface of the acromion is flattened, suggestive of prior acromioplasty. Joint spaces: The acromioclavicular joint is mildly widened being indeterminate for prior partial resection. A mild effusion involves the glenohumeral joint. Glenoid labrum: Abnormal signal and morphology of the superior labrum in a patient of this age likely represents degenerative tearing. Bursae: A mild amount of fluid is present in the subacromial-subdeltoid bursa. Supraspinatus tendon: The distal supraspinatus tendon is obscured by artifact. There is approximately a 6 mm gap where no tendon is visible at the level of the mid humeral head suggesting a focal full-thickness retear (series 10/images 9-10). Infraspinatus tendon: The majority of the infraspinatus tendon with the exception of the far superior aspect is visible and intact with moderate tendinosis. Subscapularis tendon: The insertion of the subscapularis tendon is obscured by metal artifact, but there is no tendon retraction to indicate a full-thickness tear. Teres minor tendon: No evidence of tear. Tendon of biceps brachii: The region of the long head of the biceps tendon at the level of the humeral head is obscured by metal artifact. The intra-articular portion of the long head of the biceps tendon is favored to be intact on series 10/images 13-14. Glenohumeral ligaments: Assessment of the glenohumeral ligaments is significantly limited. Increased signal intensity is seen in the axillary recess region of the inferior glenohumeral ligament with the inferior glenohumeral ligament being at least partially intact anteriorly. Muscles: Mild atrophy involves the musculature surrounding the joint. Soft tissues: Edema in the subcutaneous fat of the posterolateral shoulder the is incompletely imaged but suggests contusion or medication injection (series 10/image 1). IMPRESSION: 1. Postoperative changes of the shoulder with significant artifact from the humeral head suture anchors. 2. Probable 6 mm full-thickness retear of the supraspinatus tendon, although assessment significantly limited by artifact. 3. Moderate infraspinatus tendinosis with nonvisualization of the superior insertion due to metal artifact. 4. Significantly limited assessment of the distal subscapularis tendon and the long head of the biceps tendon due to artifact. 5. Abnormal signal and morphology of the glenoid labrum, likely representing degenerative tearing. 6. Nonspecific edema in the subcutaneous fat of the posterolateral shoulder. 7. Mild subacromial-subdeltoid bursitis. 10:1
== END ==
PROVIDERS: PCP Family Medicine; Visit Provider Nurse Practitioner Family
DX: M25.511 Pain in right shoulder (principal); M25.611 Stiffness of right shoulder, not elsewhere classified
CPT/HCPCS: 73221

== ENCOUNTER → 2021-11-11 09:55 | Outpatient (CLI) | payer MEDICARE, OTHER, SELFPAY ==
--- NOTE | 2021-11-11 10:05 | XR_ITS ---
FINAL REPORT CLINICAL HISTORY: PAIN IN LEFT KNEE. EFFUSION, LEFT KNEE FINDINGS: LEFT KNEE: Three views of the left knee were obtained. There is no acute fracture or dislocation. There are mild degenerative changes in the medial compartment. There is no joint effusion. Vascular calcifications are present. IMPRESSION: Mild medial compartment degenerative change. Reviewed, Interpreted and Dictated by Sky Ryan III, MD Transcribed by Casper Yang Authenticated and [facility]
== END ==
PROVIDERS: PCP Family Medicine; Visit Provider Nurse Practitioner Family
DX: M25.562 Pain in left knee (principal); M25.461 Effusion, right knee
CPT/HCPCS: 73562

== ENCOUNTER 2022-03-01 11:16 | Inpatient (IN) | payer MEDICARE, OTHER, SELFPAY ==
[2022-03-01] VITALS (9 sets, daily range): BP systolic 113–163; BP diastolic 61–98; PULSE 83–95; RESP 17–20; TEMP 36.4–36.9; O2SAT 94–97; BMI 31.3; BMI 37.6
--- NOTE | 2022-03-01 11:31 | XR_ITS ---
PROCEDURE INFORMATION: Exam: XR Chest Exam date and time: 03/01/2022 11:59 AM Age: 76 years old Clinical indication: Shortness of breath and other: AMS; Additional info: AMS, SOB TECHNIQUE: Imaging protocol: Radiologic exam of the chest. Views: 1 view. COMPARISON: CR XR CHEST AP 04/06/2021 3:41 AM FINDINGS: Lungs: Hypoinflation and interstitial prominence. Pleural spaces: Left basilar airspace/pleural disease, which can be better evaluated with PA and lateral chest radiographs, as clinically indicated. Heart/Mediastinum: No cardiomegaly. Vasculature: Calcification of the thoracic aorta. Bones/joints: Osteopenia, degenerative change, and right rotator cuff repair. IMPRESSION: Left basilar airspace/pleural disease, which can be better evaluated with PA and lateral chest radiographs, as clinically indicated.
[2022-03-01 12:06] LABS: Microscopic, Urine URINE MICROSCOPIC (MICROSCOPIC)
[2022-03-01 12:20] LABS: Appearance,Urine CLOUDY (Clear); Bilirubin,Urine Negative (Negative); Blood, Urine 2+ (Negative); Color,Urine YELLOW (Yellow); Glucose,Urine (UA) Negative (Negative); Ketones,Urine TRACE (Negative); Leukocyte Esterase,Urine 2+ (Negative); Nitrate,Urine POSITIVE (Negative); PH,Urine 5.5 (5.0-8.5); Protein,Urine 2+ (Negative); Specific Gravity, Urine >= 1.030 (1.005-1.030); Urobilinogen,Urine 0.2 EU/dl (0.2)
--- NOTE | 2022-03-01 12:38 | ECG_ITS ---
APPROVED REPORT Exam: Resting ECG HR:87 bpm ECG Measurements Heart Rate 87 AXES CA 158 P 66 QRSd 86 QRS 10 QT 385 T 32 QTc 430 Conclusion SINUS RHYTHM NORMAL ECG UNCONFIRMED REPORT Electronically signed by : Mickey Singh MD 03/02/2022 19:46:20
--- NOTE | 2022-03-01 12:47 | HMH.EDGENADL ---
Discharge Plan Disposition Patient Disposition: Admitted As Inpatient Condition: Fair Chief Complaint: Weakness Prescriptions Prescriptions: No Action duloxetine 60 mg capsule,delayed release(DR/EC) 60 mg PO DAILY 30 Days Qty: 30 aspirin 81 MG tablet,delayed release (DR/EC) 81 mg PO DAILY atorvastatin 40 MG tablet 40 mg PO HS metoprolol succinate 50 MG tablet extended release 24 hr 50 mg PO DAILY ticagrelor 90 MG tablet 90 mg PO BID lisinopril 20 MG tablet 20 mg PO DAILY Qty: 30 0RF hydrocodone-acetaminophen 1 TAB tablet 1 tab PO Q6HP PRN (Reason: Moderate Pain) 3 Days Qty: 10 0RF meloxicam 7.5 MG tablet 7.5 mg PO DAILY Qty: 10 0RF Referrals Follow up/Referrals: Provider,Referral, MD [Primary Care Provider] - See instructions Clinical Impressions Clinical Impression: Pneumonia, Urinary tract infection, JOANNE (acute kidney injury), Rhabdomyolysis, Chronic kidney disease, Elevated troponin, Fall, Acute confusion Discharge ED Provider: Marco Koo General Adult HPI General Chief complaint: Weakness Stated complaint: fall Time Seen by Provider: 03/01/22 12:51 Mode of Arrival: EMS Limitations: Altered Mental Status Description of Symptoms (Recalled from ER Triage Doc. by RN): SON CALLED EMS, BROUGHT IN VIA EMS FOR CONFUSION, FREQUENT FALLS. STRONG SMELLING URINE. PT STATES SHE HURTS ALL OVER History of Present Illness HPI narrative: The patient is brought in by ambulance. Reportedly the son called EMS for a fall. He is not present. No family members are present at this time. History is obtained from the patient and she is a poor/unreliable historian. She is confused at the time I evaluate her and is unable to give me any information. In fact, she is not even able to tell me her name. She does state that it is Wednesday but is not answer as to year or month. She is unable to tell me why she is here or voiced any complaints. Related Data Home Medications Medication Instructions Recorded Confirmed duloxetine 60 mg capsule,delayed 60 mg PO DAILY neurapathy, anxiety 10/12/17 04/08/21 release 30 days ##30 aspirin 81 mg tablet,delayed 81 mg PO DAILY Heart disease 08/03/19 04/08/21 release atorvastatin 40 mg tablet 40 mg PO HS Cholesterol 04/18/20 04/08/21 metoprolol succinate 50 mg 50 mg PO DAILY Hypertension 04/18/20 04/18/20 tablet,extended release 24 hr ticagrelor 90 mg tablet 90 mg PO BID Heart disease 04/18/20 04/18/20 Previous Rx's Medication Instructions Recorded lisinopril 20 mg tablet 20 mg PO DAILY #30 tabs 04/08/21 hydrocodone 5 mg-acetaminophen 325 1 tab PO Q6HP PRN Moderate Pain 3 04/24/21 mg tablet days #10 tabs meloxicam 7.5 mg tablet 7.5 mg PO DAILY #10 tabs 04/24/21 Allergies Allergy/AdvReac Type Severity Reaction Status Date / Time ceftriaxone [From Rocephin] Allergy Severe Hives Verified 04/08/21 08:16 iodine Allergy Unknown Verified 04/17/20 12:14 NSAIDS (Non-Steroidal Allergy Unknown Verified 04/17/20 12:14 Anti-Inflamma [facility] Medical History (Updated 03/01/22 @ 14:49 by Marco Koo MD) Hypertension Family History (Updated 03/01/22 @ 13:06 by Binta Moody RN) Other No significant family history Social History Smoking Status: Never smoker alcohol intake: never substance use type: denies use current occupational status: unemployed and retired Travel in the last 8 weeks: None household members: spouse housing: house current occupational exposures/hazards: No caffeine: No ROS Obtained: Yes unobtainable due to mental status Physical Exam General General appearance: other Comment: The patient is asleep upon my arrival. When awakened she is confused. Complains of tenderness anywhere that I touch her. Head Head exam: atraumatic and normocephalic Eye Eye exam: Present EOMI ENT ENT exam: Present mucous membr
[2022-03-01 12:50] LABS: Bacteria,Urine 3+ /lpf
--- NOTE | 2022-03-01 12:55 | PC.NURSE ---
DR. CALLE AT BEDSIDE TO EVALUATE PT
--- NOTE | 2022-03-01 13:00 | CT_ITS ---
PROCEDURE INFORMATION: Exam: CT Cervical Spine Without Contrast Exam date and time: 03/01/2022 1:26 PM Age: 76 years old Clinical indication: Injury or trauma; Fall; Blunt trauma; Additional info: Falls TECHNIQUE: Imaging protocol: Computed tomography of the cervical spine without contrast. Radiation optimization: All CT scans at this facility use at least one of these dose optimization techniques: automated exposure control; mA and/or kV adjustment per patient size (includes targeted exams where dose is matched to clinical indication); or iterative reconstruction. COMPARISON: CT CERVICAL SPINE WO CON 04/06/2021 3:38 AM FINDINGS: Bones/joints: No acute bony injury or malalignment in the visualized cervical spine. Degenerative change. Pharynx: Incomplete distension of the left piriform sinus. Lungs: Apical emphysematous change, interstitial disease, and mild airspace disease. Soft tissues: Ligamentous calcification. IMPRESSION: No acute bony injury or malalignment in the visualized cervical spine.
--- NOTE | 2022-03-01 13:00 | CT_ITS ---
PROCEDURE INFORMATION: Exam: CT Head Without Contrast Exam date and time: 03/01/2022 1:25 PM Age: 76 years old Clinical indication: Injury or trauma; Fall; Blunt trauma (contusions or hematomas); Without loss of consciousness; Additional info: Falls, confused TECHNIQUE: Imaging protocol: Computed tomography of the head without contrast. Radiation optimization: All CT scans at this facility use at least one of these dose optimization techniques: automated exposure control; mA and/or kV adjustment per patient size (includes targeted exams where dose is matched to clinical indication); or iterative reconstruction. COMPARISON: MR HEAD/BRAIN WO CON 04/07/2021 8:55 AM FINDINGS: Brain: Asymmetric regions of chronic ischemic change demonstrated involving the left frontal, temporal and parietal lobe. Superimposed periventricular white matter tract changes. Chronic focus of lacunar infarction left basal ganglia. Cerebral ventricles: No ventriculomegaly. Paranasal sinuses: Visualized sinuses are unremarkable. No fluid levels. Mastoid air cells: Visualized mastoid air cells are well aerated. Bones/joints: Unremarkable. No acute fracture. Soft tissues: Unremarkable. IMPRESSION: 1. No evidence of acute intracranial abnormality. 2. Chronic ischemic changes as described above. Findings stable since 04/07/2021.
--- NOTE | 2022-03-01 13:00 | XR_ITS ---
PROCEDURE INFORMATION: Exam: XR Right Shoulder Exam date and time: 03/01/2022 1:43 PM Age: 76 years old Clinical indication: Injury or trauma; Fall; Blunt trauma (contusions or hematomas); Shoulder; Right; Additional info: Falls, bruising TECHNIQUE: Imaging protocol: Radiologic exam of the Right shoulder. Views: 2 or more views. COMPARISON: MR SHOULDER RT WO CON 07/01/2021 4:33 PM FINDINGS: Bones/joints: Osteopenia and degenerative change. Rotator cuff repair. No acute bony injury or malalignment in the visualized right shoulder. Soft tissues: Skin folds. IMPRESSION: No acute bony injury or malalignment in the visualized right shoulder.
[2022-03-01 13:03] LABS: Basophils # 0.1 K/mm3 (0-0.2); Basophils % 0.3 % (0.1-2.0); Eosinophils % 0.1 % (0.1-12.0); Hematocrit 42.1 % (37.0-47.0); Hemoglobin 13.8 g/dL (12.2-16.2); Lymphocytes % 6.2 % (10-50); Mean Corpuscular HGB Conc 32.9 g/dL (31.8-35.4); Mean Corpuscular Hemoglobin 27.9 pg (27.0-31.2); Mean Corpuscular Volume 84.9 fl (81-99); Mean Platelet Volume 8.2 fl (7.4-10.4); Monocytes # 0.6 K/mm3 (0.1-1.0); Monocytes % 3.7 % (1.7-9.3); Neutrophils # 13.9 K/mm3 (1.8-7.8); Neutrophils % 89.7 % (37.0-80.0); Platelet Count 201 K/mm3 (142-424); Red Blood Count 4.96 M/mm3 (4.20-5.40); Red Cell Distribution Width 14.6 % (11.5-17.5); White Blood Count 15.5 K/mm3 (4.8-10.8)
--- NOTE | 2022-03-01 13:03 | XR_ITS ---
PROCEDURE INFORMATION: Exam: XR Pelvis Exam date and time: 03/01/2022 1:43 PM Age: 76 years old Clinical indication: Injury or trauma; Fall; Blunt trauma (contusions or hematomas); Bilateral; Hip; Additional info: Falls TECHNIQUE: Imaging protocol: Radiologic exam of the pelvis. Views: 1 or 2 view. COMPARISON: CT ABDOMEN PELVIS WO CON 03/01/2022 1:29 PM FINDINGS: Tubes, catheters and devices: Bladder catheter. Bones/joints: No acute bony injury or malalignment in the visualized pelvis on the single AP portable view obtained. Degenerative change. Lumbar laminectomy and pedicle screw fixation. Soft tissues: Panniculus and skin fold. Other findings: Prominent stool. IMPRESSION: No acute bony injury or malalignment in the visualized pelvis on the single AP portable view obtained.
--- NOTE | 2022-03-01 13:03 | PC.NURSE ---
PT UNABLE TO VERIFY MED LIST, NO FAMILY AT BEDSIDE
[2022-03-01 13:04] LABS: Chloride 106 mmol/L (98-107)
[2022-03-01 13:05] LABS: MANUAL DIFFERENTIAL MANUAL DIFFERENTIAL (MANUAL DIFF); Sodium 141 mmol/L (136-145)
[2022-03-01 13:07] LABS: Blood Urea Nitrogen 53 mg/dl (7-17); Creatinine Clearance Estimated 34 mL/min (50-200); Estimated Glomerular Filt Rate 24 ml/min (>60); GFR (African American) 29 ML/MIN (>60)
[2022-03-01 13:08] LABS: Carbon Dioxide 21 mmol/L (22.0-30.0); Glucose 134 mg/dl (74-100)
--- NOTE | 2022-03-01 13:09 | PC.NURSE ---
CALLED TO VERIFY MED LIST WITH [facility] IN [place]. NO MEDS HAVE BEEN FILLED SINCE 2019
--- NOTE | 2022-03-01 13:10 | CT_ITS ---
PROCEDURE INFORMATION: Exam: CT Abdomen And Pelvis Without Contrast Exam date and time: 03/01/2022 1:29 PM Age: 76 years old Clinical indication: Injury or trauma; Fall; Blunt; Epigastric; Additional info: Abdo tenderness, falls TECHNIQUE: Imaging protocol: Computed tomography of the abdomen and pelvis without contrast. Radiation optimization: All CT scans at this facility use at least one of these dose optimization techniques: automated exposure control; mA and/or kV adjustment per patient size (includes targeted exams where dose is matched to clinical indication); or iterative reconstruction. COMPARISON: CT ABDOMEN PELVIS WO CON 04/17/2020 2:01 PM FINDINGS: Detailed evaluation of the abdominal and pelvic viscera is somewhat limited in the absence of intravenous contrast. Inferior thorax: Emphysematous change, interstitial disease, chronic granulomatous disease, dependent airspace disease, and poorly defined parenchymal density in the lingula. Coronary artery calcification. Small hiatal hernia. Liver: Fatty infiltration of the liver. Gallbladder and bile ducts: High attenuation bile in the gallbladder. Pancreas: No pancreatic mass or ductal dilatation. Spleen: No splenomegaly. Adrenal glands: Unremarkable adrenals. Kidneys and ureters: Severe left renal atrophy with infiltration of perinephric fat. Renal vascular calcification. Stomach and bowel: Questionable wall thickening in the decompressed stomach. Colonic dilatation with prominent stool. 3 cm segmental luminal narrowing in the sigmoid colon (series 3: Image 110). Appendix: Nonvisualization of the appendix. Intraperitoneal space: No significant free fluid. Vasculature: Ectasia of the abdominal aorta and prominent vascular calcification. Lymph nodes: Subcentimeter lymph nodes. Urinary bladder: Marte catheter in the decompressed bladder. Reproductive: Status post hysterectomy. Bones/joints: Osteopenia . Degenerative change and disc bulging in the postoperative lumbar spine with laminectomy, pedicle screw fixation, interbody spacer at the L4-L5 levels. Soft tissues: Injection granulomata. Fat containing umbilical and inguinal hernias. IMPRESSION: 1. No acute post-traumatic injury in the visualized abdomen or pelvis. 2. Nontraumatic findings as described above.
[2022-03-01 13:15] LABS: Creatine Kinase 2782 U/L (30-135)
[2022-03-01 13:17] LABS: CKMB Relative Index 0.3 U/L (0-4.0); Creatine Kinase MB 8.9 ng/ml (0.0-2.03)
[2022-03-01 13:19] LABS: Lipase 49 U/L (23-300)
[2022-03-01 13:20] LABS: Troponin I 0.12 ng/ml (0.00-0.034)
--- NOTE | 2022-03-01 13:20 | PC.NURSE ---
PT TO CT
[2022-03-01 13:25] LABS: Lymphocytes % 10 % (10-50); Monocytes % 1 % (2-9); Neutrophils % 89 % (42-76); Platelet Estimate Normal; RBC Morphology Normal; Total Cells Counted 100
[2022-03-01 13:33] LABS: Coronavirus 19, PCR Not Detected (NotDetected); Influenza A, PCR Not Detected (NotDetected); Influenza B, PCR Not Detected (NotDetected)
[2022-03-01 13:43] LABS: Lactic Acid 1.8 mmol/L (0.7-2.1)
--- NOTE | 2022-03-01 14:43 | PC.NURSE ---
DR. CALLE SPEAKING WITH DR. WISEMAN AT THIS TIME
--- NOTE | 2022-03-01 14:46 | PC.NURSE ---
DR. WISEMAN AT BEDSIDE
--- NOTE | 2022-03-01 15:02 | EXP.HP ---
History of Present Illness *Admission Date: 03/01/22 *Reason for visit:: falling at home, weakness *History of present illness: Ms. Harris is a 76-year-old female who presented from home via EMS to the ER after a fall. Son reportedly called EMS to bring her in because he was concerned about her falling and being more weak. No family at bedside at time of evaluation. History obtained from patient as best as possible however she is a very poor historian and unable to give significant contacts. She appears pleasantly confused. Reports she has had a little cough. Unable to give much more history. Complains of some pain but cannot localize as to where. Is pleased to hear she is going to be admitted to the hospital. Work-up in the ER concerning for UTI, pneumonia, rhabdomyolysis, and JOANNE on CKD. Baseline creatinine around 1.4. Creatinine and BUN elevated to 2 and 53 respectively on initial labs. Leukocytosis of 15,000. CK greater than 2000. Patient initiated on Levaquin, IV fluids, and medicine consulted for admission and further management. Per report from ER, patient reportedly lives at home by herself with family close by who check on her regularly. She appears very unkempt, long toenails with significant scale on lower legs and chronic stasis changes. Afebrile and hemodynamically stable on room air. She is otherwise confused at the time of evaluation and unable to give me any information. Past history and review of systems per chart [facility] Medical History (Updated 03/01/22 @ 17:44 by Sahil Urias MD) BMI 39.0-39.9,adult Hypertension Morbid obesity with BMI of 40.0-44.9, adult Family History No significant family history Social History Smoking Status: Never smoker alcohol intake: never substance use type: denies use current occupational status: unemployed and retired Travel in the last 8 weeks: None household members: spouse housing: house current occupational exposures/hazards: No caffeine: No Review of Systems Review of Systems Review of systems:: unable to obtain (Due to patient's memory impairment and no family available) Meds Home Medications and Allergies Home Medications Medication Instructions Recorded Confirmed Type duloxetine 60 mg capsule,delayed 60 mg PO DAILY neurapathy, anxiety 07/03/18 12/28/21 History release 30 days ##30 aspirin 81 mg tablet,delayed 81 mg PO DAILY Heart disease 08/03/19 04/08/21 History release atorvastatin 40 mg tablet 40 mg PO HS Cholesterol 04/18/20 04/08/21 History metoprolol succinate 50 mg 50 mg PO DAILY Hypertension 04/18/20 04/18/20 History tablet,extended release 24 hr ticagrelor 90 mg tablet 90 mg PO BID Heart disease 04/18/20 04/18/20 History lisinopril 20 mg tablet 20 mg PO DAILY #30 tabs 04/08/21 Rx hydrocodone 5 mg-acetaminophen 325 1 tab PO Q6HP PRN Moderate Pain 3 04/24/21 Rx mg tablet days #10 tabs meloxicam 7.5 mg tablet 7.5 mg PO DAILY #10 tabs 04/24/21 Rx New Prescriptions to Start Prescriptions: Allergies Allergy/AdvReac Type Severity Reaction Status Date / Time ceftriaxone [From [facility]] Allergy Severe Hives Verified 04/08/21 08:16 iodine Allergy Unknown Verified 04/17/20 12:14 NSAIDS (Non-Steroidal Allergy Unknown Verified 04/17/20 12:14 Anti-Inflamma Exam Data for Last 24 hours Vital signs and Labs for Last 24 Hours: Temp Pulse Resp BP Pulse Ox 98.4 F 88 18 140/75 96 03/01/22 11:16 03/01/22 14:30 03/01/22 12:00 03/01/22 14:30 03/01/22 14:30 Laboratory Results - last 24 hr 03/01/22 11:59: Urine Color Yellow, Urine Appearance Cloudy, Urine pH 5.5, Ur Specific [place] >= 1.030, Urine Protein 2+, Urine Glucose (UA) Negative, Urine Ketones Trace, Urine Blood 2+, Urine Nitrate Positive, Urine Bilirubin Negative, Urine Urobilinogen 0.2, Ur Leukocyte Esterase 2+ A, Urine RBC 10
--- NOTE | 2022-03-01 15:45 | PC.NURSE ---
pt son called to check on her, advised him she was being admitted
--- NOTE | 2022-03-01 16:00 | PC.NURSE ---
REPORT GIVEN TO Karuna MICHAUD RN
--- NOTE | 2022-03-01 17:02 | PC.NURSE ---
pt has been admitted to the floor. She is alert but disoriented. Only able to tell me her first name. She has multiple open areas to folds as well as had dried feces to back and bottom. Significant bruising through out her body. Redness and discolorations to BLE. blisters under left breast and in folds. Pt was a max 2 assist to pivot to bed from stretcher. Lungs are CTA. no edema noted. assist with feeding. notified MD of pt condition. Care management consult put in
--- NOTE | 2022-03-01 17:14 | PC.NURSE ---
unable to complete history due to pts mental status
[2022-03-01 17:24] LABS: Troponin I 0.11 ng/ml (0.00-0.034)
--- NOTE | 2022-03-01 17:51 | PC.WOUNDNOTE ---
excoriation under right breast excoriation to bottom excoriation to groin blisters under left abd fold right foot excoriation to abd fold bruising to left shoulder left knee excoriation to left abd fold excoriation to left breast
--- NOTE | 2022-03-01 18:02 | PC.NURSE ---
wound photographs uploaded for rosalina morejon rn
[2022-03-01 20:13] LABS: Troponin I 0.11 ng/ml (0.00-0.034)
[2022-03-02] VITALS: BP 125/53; PULSE 86; RESP 20; TEMP 36.7; O2SAT 100
[2022-03-02 04:00] VITALS: BP 143/69; PULSE 73; RESP 18; TEMP 36.9; O2SAT 95
[2022-03-02 05:00] VITALS: BMI 38.3
[2022-03-02 07:01] LABS: Eosinophils # 0.2 K/mm3 (0.0-0.4); Eosinophils % 1.7 % (0.1-12.0); Monocytes # 0.3 K/mm3 (0.1-1.0); Red Cell Distribution Width 14.9 % (11.5-17.5)
[2022-03-02 07:10] LABS: Basophils # 0.1 K/mm3 (0-0.2); Hematocrit 37.5 % (37.0-47.0); Lymphocytes # 0.9 K/mm3 (0.7-4.5); Lymphocytes % 7.1 % (10-50); Mean Corpuscular HGB Conc 32.7 g/dL (31.8-35.4); Mean Corpuscular Hemoglobin 27.6 pg (27.0-31.2); Mean Corpuscular Volume 84.4 fl (81-99); Mean Platelet Volume 8.5 fl (7.4-10.4); Monocytes % 2.5 % (1.7-9.3); Neutrophils # 10.7 K/mm3 (1.8-7.8); Neutrophils % 87.6 % (37.0-80.0); Platelet Count 178 K/mm3 (142-424); Red Blood Count 4.45 M/mm3 (4.20-5.40); White Blood Count 12.2 K/mm3 (4.8-10.8)
[2022-03-02 07:12] LABS: Hemoglobin 12.3 g/dL (12.2-16.2); MANUAL DIFFERENTIAL MANUAL DIFFERENTIAL (MANUAL DIFF)
--- NOTE | 2022-03-02 07:13 | PC.NURSE ---
No acute changes since previous assessment. Pt has rested in intervals. IV infusing per order. Voiding per workman cath. Bed alarm on. Pt has had no complaints this shift. call light in reach.
[2022-03-02 07:17] LABS: Alanine Aminotransferase 41 U/L (12-78); Alkaline Phosphatase 138 U/L (38-126); Anion Gap 13.8 mEq/L (5-15); Aspartate Amino Transferase 82 U/L (14-36); Bilirubin,Total 0.8 mg/dl (0.2-1.3); Blood Urea Nitrogen 68 mg/dl (7-17); Calcium 8.6 mg/dl (8.4-10.2); Carbon Dioxide 21 mmol/L (22.0-30.0); Chloride 106 mmol/L (98-107); Creatine Kinase 1394 U/L (30-135); Creatinine Clearance Estimated 41 mL/min (50-200); Estimated Glomerular Filt Rate 26 ml/min (>60); GFR (African American) 31 ML/MIN (>60); Glucose 111 mg/dl (74-100); Potassium 3.8 mmoL/L (3.5-5.1); Sodium 137 mmol/L (136-145)
[2022-03-02 08:00] VITALS: BP 146/66; PULSE 83; RESP 21; TEMP 36.7; O2SAT 98
[2022-03-02 08:02] LABS: Lymphocytes % 7 % (10-50); Monocytes % 3 % (2-9); Neutrophils % 90 % (42-76); Platelet Estimate Normal; RBC Morphology Normal; Total Cells Counted 100
--- NOTE | 2022-03-02 08:11 | HMH.PTEV ---
Physical Therapy Evaluation Rehab PT IP Evaluation Start: 03/01/22 15:01 Freq: ONCE Status: Active Protocol: Document 03/02/22 08:04 ALEXDRE (Rec: 03/02/22 08:11 ALEXDRE [id number]) Subjective/History History History Ms. Harris is a 76-year-old female who presented from home via EMS to the ER after a fall. Per report from ER, patient reportedly lives at home by herself with family close by who check on her regularly. She appears very unkempt, long toenails with significant scale on lower legs and chronic stasis changes. Afebrile and hemodynamically stable on room air. She is otherwise confused at the time of evaluation and unable to give me any information. Subjective Subjective Pt does not say much but is confused when she does speak - pt only able to give her first name Rehab PT IP Eval Objective Appearance Patient Behavior Cooperative,Passive,Confused Patient Orientation Place,Name Difficulty following instructions moderate Speech Pattern Baseline Function, Inappropriate Ambulation Patient Able to Ambulate Yes Ambulation Observation IP General Gait Pattern Observation Shuffling Step Ambulation Distance (feet) 2 Ambulation Assistive Device None Ambulation Ability Maximum x 2 (75% assist) Balance Ability to Arise Unable Sitting Balance Steady, safe Standing Balance Unsteady Dynamic Sitting Balance Ability Fair Dynamic Standing Balance Ability Zero Transfers Bed Transfer Ability Maximum x 1 (75% assist) Chair Transfer Ability Maximum x 1 (75% assist) Sit to Stand Bed Transfer Ability Maximum x 2 (75% assist) Sit to Stand Chair Transfer Ability Maximum x 2 (75% assist) Rehab PT IP prob,goals,plan Problems Date of Evaluation: 03/02/22 PT IP Problems Bed Mobility,Transfers,Gait, Balance,Self care,Safety Rehab Potential Rehab Potential Fair Equipment Needs Assistive Devices Rolling / Wheeled Walker, Wheelchair Plan PT Intervention Plan Bed Mobility,Transfers,Gait, B
--- NOTE | 2022-03-02 08:56 | HMH.OTEV ---
OT Inpatient Evaluation Rehab OT IP Evaluation Start: 03/01/22 15:01 Freq: ONCE Status: Complete Protocol: Document 03/02/22 08:47 CARA (Rec: 03/02/22 08[id number] Rehab OT IP Assessment Subjective History Pt oriented x 2 on arrival. Pt agreeable to engage in therapy evaluation. Pt was admitted via ED on 03/01/22 due to falls at home and continued weakness. Pt does live at home alone, but family lives close by and checks on her often. She appears to be pleasantly confused about her PLOF. Pt claims she was independent with all ADLs such as feeding, dressing, and showering. However, on arrival to ER she appeared to be unkept. Pt reports family completes all cleaning, cooking, and laundry. Family also does grocery shopping. She does use a walker during ambulation. All information provided from patient may not be trustworthy due to continued confusion. Pt has a past medical history of: BMI 39.0-39.9,adult Hypertension Morbid obesity with BMI of 40. 0-44.9, adult Subjective I'm not sure. Objective Patient Orientation Person,Birthday Upper Extremity Gross ROM WFL Transfer Training Sit/Stand Transfer Assist Level Maximum x 2 (75% assist) Chair Transfer Ability Maximum x 2 (75% assist) Chair Transfer Technique Stand Step Pivot Feeding Ability Assist with Tray Set Up Rehab OT IP prob,goals,plan Problems Date of Evaluation: 03/02/22 OT IP Problems Bed Mobility,Transfers,Balance ,Self care,Safety Rehab Potential Rehab Potential Good Equipment Needs Assistive Devices Rolling / Wheeled Walker Plan OT intervention Plan Bed Mobility,Transfers,Balance ,Self care,Safety,Therapeutic Exercise OT Plan Frequency BID Duration
--- NOTE | 2022-03-02 08:56 | HMH.PTWOUND ---
Rehab Inpt Wound Evaluation Rehab IP Wound Evaluation Start: 03/01/22 17:45 Freq: ONCE Status: Active Protocol: Document 03/02/22 08:49 YOHANA (Rec: 03/02/22 08:56 PHOCOLIN [id number]) Rehab PT Wound Assessment Patient Status Premedicated Prior to Dressing Change No Subjective [facility] 76 [facility]. She presents with multiple skin issues currently, most likely due to very poor hygiene. Under B breast areas of redness being treated with topical medication per MD orders. B knees with dry prior areas of avulsion due to falls. B lower legs (R worse than L) with small areas of excoriation and skin cracking due to dryness. Wound Right Lateral [place] Wound Type excoriation Is This a Chronic Wound No Wound Length (cm) 3.0 Wound Width (cm) 0.1 Wound Margins Description Well Defined Wound Drainage Description Sanguineous Drainage Amount Scant Dressing Status Dry & Intact Primary Dressing Gauze Pad Comment performed by nsg, left intact Wound Debridement Amount of Tissue None Removed Dressing Change Patient Tolerance Tolerated Well Plan/Recommendation Comment Currently nsg has performed wound care and is dressing all wounds appropriately. No needs for selective, sharp debridement at this time. Will continue to follow for mobility issues, but no current needs for inpatient wound care from PT. Please continue dressings as appropriate and notify if wounds change and need further care. Thank you. Eval Complexity Eval Charge Codes 34946 - Low Complexity PHYSICIAN CERTIFICATION: I certify the specified therapy services for Kay Harris are required, authorized, and reviewed every 30 days.
[2022-03-02 11:46] VITALS: BP 168/75; PULSE 86; RESP 18; TEMP 36.9; O2SAT 96
[2022-03-02 14:39] VITALS: BMI 38.2
[2022-03-02 16:00] VITALS: BP 154/62; PULSE 80; RESP 19; TEMP 36.9; O2SAT 96
--- NOTE | 2022-03-02 16:37 | CARE MANAGER ---
Addendum entered by Judy Cornejo RN 03/03/22 10:42: Spoke with Pretty at [facility] this morning. Patient has been accepted there and will discharge today per MD. Patient will need a Covid swab prior to discharge, and order was placed. Spoke with patient's son, Abelardo this morning and he is attempting to arrange transport. I will send DC summary when available. Original Note: Spoke with patient and family this afternoon in regards to discharge planning. Patient is agreeable to rehab at a SNF. Per family's request, I have faxed the referral to [facility] and [facility]. Pretty @ [facility] is reviewing and I continue to wait to hear from Cabrera @ [facility]. Plan is for possible discharge tomorrow, Wednesday.
--- NOTE | 2022-03-02 18:43 | EXP.ACUTE.PN ---
Subjective *Date: 03/02/22 *Time: 19:28 Interval history: Patient did well overnight. Remained stable on room air. Labs this morning show improvement in leukocytosis. Denies shortness of breath, chest pain, nausea, vomiting, diarrhea. Complains of being sore in her legs. Hemodynamically stable Medical Exam Vital signs and Labs for Last 24 Hours: Vital Signs Temp Pulse Resp BP Pulse Ox 03/02/22 16:00 98.5 F 80 19 154/62 H 96 03/02/22 11:46 98.4 F 86 18 168/75 H 96 03/02/22 08:00 98.1 F 83 21 146/66 H 98 03/02/22 04:00 98.5 F 73 18 143/69 H 95 03/02/22 00:00 98.1 F 86 20 125/53 L 100 03/01/22 20:00 97.6 F 92 H 18 119/61 97 Intake and Output 03/02/22 03/02/22 03/02/22 07:59 15:59 23:59 Intake Total 1800 / 2280 480 / 2280 Output Total 300 / 300 0 / 300 0 / 300 Balance 1499 / 1979 Intake: Intake, Oral Amount 480 / 480 Intake, Total IV Amount 1800 / 1800 Ringers Solution,Lactated 1,000 1800 / 1800 ml @ 150 mls/hr IV .[id number] [facility] Rx#:[id number] Output: Output, Urine Amount 300 / 300 0 / 300 0 / 300 Other: Number of Voids 0 0 Number of Unmeasured Voids 0 0 Number of Bowel Movements 0 Weight 104.468 kg 104 kg Patient Weight 03/02/22 23:59 Weight 104 kg Laboratory Results - last 24 hr 03/01/22 19:40: Troponin I 0.11 H 03/02/22 06:43: WBC 12.2 H, RBC 4.45, Hgb 12.3 D, Hct 37.5, MCV 84.4, MCH 27.6, MCHC 32.7, RDW 14.9, Plt Count 178, MPV 8.5, Neut % (Auto) 87.6 H, Lymph % (Auto) 7.1 L, [place] % (Auto) 2.5, Eos % (Auto) 1.7, Baso % (Auto) 1.0, Neut # (Auto) 10.7 H, Lymph # (Auto) 0.9, [place] # (Auto) 0.3, Eos # (Auto) 0.2, Baso # (Auto) 0.1, Total Counted 100, Neutrophils % (Manual) 90 H, Lymphocytes % (Manual) 7 L, Monocytes % (Manual) 3, Platelet Estimate Normal, RBC Morphology Normal 03/02/22 06:43: Sodium 137, Potassium 3.8, Chloride 106, Carbon Dioxide 21 L, Anion Gap 13.8, BUN 68 H D, Creatinine 1.90 H, Estimated Creat Clear 41, Estimated GFR 26 L, Est GFR ( Amer) 31 L, Glucose 111 H, Calcium 8.6, Magnesium 2.0, Total Bilirubin 0.8, AST 82 H, ALT 41, Alkaline Phosphatase 138 H, Total Creatine Kinase 1394 H* D, Total Protein 6.0 L, Albumin 3.0 L, Globulin 3.0, Albumin/Globulin Ratio 1.0 L I & O for Labs for Last 24 Hours: Intake & Output 02/27/22 02/28/22 03/01/22 03/02/22 23:59 23:59 23:59 23:59 Intake Total 480 / 480 2280 / 2280 Output Total 0 / 0 300 / 300 Balance 480 / 480 1979 / 1979 Weight 102.625 kg 104 kg Microbiology Reports for the Last 24 Hours: Microbiology 03/01/22 11:59 Urine,Catheterized Urine Culture - Preliminary Constitutional: Present no acute distress, obese and chronically ill appearing Head: Present atraumatic and normocephalic ENT: Present normal exam Respiratory: Present normal respiratory effort Cardiac: Present Reg Rate and Rhythm GI: Present normal bowel sounds; Absent tenderness Extremities: Present normal inspection, full ROM and edema (trace) Skin: Present intact and dry; Absent erythema Comment:: wound on right lower leg Neuro: Present Grossly Intact, alert, awake and moves all extremities; Absent oriented x 3 Assessment and Plan *Assessment and plan (1) Rhabdomyolysis: Status: Acute Category: Medical Code(s): M62.82 - Rhabdomyolysis (2) Acute kidney injury: Status: Acute Category: Medical Code(s): N17.9 - Acute kidney failure, unspecified (3) UTI (urinary tract infection): Status: Acute Qualifiers: Hematuria presence: without hematuria Urinary tract infection type: acute cystitis Qualified Code(s): N30.00 - Acute cystitis without hematuria Category: Medical Code(s): N39.0 - Urinary tract infection, site not specified (4) Non-STEMI (non-ST elevated myocardial infarction): Status: Acute Category: Medical Code(s): I21.4 - Non-ST elevation (NSTEMI) myocard
[2022-03-02 20:00] VITALS: BP 144/70; PULSE 86; RESP 20; TEMP 36.8; O2SAT 94
[2022-03-03] VITALS: BP 145/79; PULSE 87; RESP 18; TEMP 37; O2SAT 92
[2022-03-03 04:00] VITALS: BP 143/61; PULSE 82; RESP 18; TEMP 36.8; O2SAT 92
[2022-03-03 05:00] VITALS: BMI 40.5
[2022-03-03 06:34] LABS: Basophils # 0.1 K/mm3 (0-0.2); Basophils % 0.5 % (0.1-2.0); Eosinophils # 0.3 K/mm3 (0.0-0.4); Eosinophils % 2.4 % (0.1-12.0); Hematocrit 35.2 % (37.0-47.0); Hemoglobin 11.5 g/dL (12.2-16.2); Lymphocytes # 1.6 K/mm3 (0.7-4.5); Lymphocytes % 12.9 % (10-50); Mean Corpuscular HGB Conc 32.7 g/dL (31.8-35.4); Mean Corpuscular Hemoglobin 27.9 pg (27.0-31.2); Mean Corpuscular Volume 85.2 fl (81-99); Mean Platelet Volume 7.9 fl (7.4-10.4); Monocytes # 0.4 K/mm3 (0.1-1.0); Monocytes % 3.4 % (1.7-9.3); Neutrophils # 10.2 K/mm3 (1.8-7.8); Neutrophils % 80.8 % (37.0-80.0); Platelet Count 176 K/mm3 (142-424); Red Blood Count 4.14 M/mm3 (4.20-5.40); Red Cell Distribution Width 14.9 % (11.5-17.5); White Blood Count 12.6 K/mm3 (4.8-10.8)
[2022-03-03 06:38] LABS: Alanine Aminotransferase 37 U/L (12-78); Albumin Level 2.8 g/dl (3.5-5.0); Alkaline Phosphatase 124 U/L (38-126); Anion Gap 12.8 mEq/L (5-15); Aspartate Amino Transferase 68 U/L (14-36); Blood Urea Nitrogen 56 mg/dl (7-17); Calcium 8.2 mg/dl (8.4-10.2); Carbon Dioxide 20 mmol/L (22.0-30.0); Chloride 107 mmol/L (98-107); Creatine Kinase 1138 U/L (30-135); Creatinine Clearance Estimated 43 mL/min (50-200); Estimated Glomerular Filt Rate 27 ml/min (>60); GFR (African American) 33 ML/MIN (>60); Globulin 2.9 g/dL (1.3-3.2); Glucose 127 mg/dl (74-100); Magnesium 1.9 mg/dl (1.6-2.3); Potassium 3.8 mmoL/L (3.5-5.1); Sodium 136 mmol/L (136-145); Total Protein,Serum 5.7 g/dl (6.3-8.2)
[2022-03-03 06:40] LABS: POC Glucose,Bedside 136 (70-110)
[2022-03-03 08:00] VITALS: BP 159/64; PULSE 81; RESP 16; TEMP 36.6; O2SAT 92
[2022-03-03 11:05] LABS: Coronavirus 19, PCR Not Detected (NotDetected); Influenza A, PCR Not Detected (NotDetected); Influenza B, PCR Not Detected (NotDetected)
[2022-03-03 11:21] LABS: POC Glucose,Bedside 183 (70-110)
--- NOTE | 2022-03-03 13:36 | EXP.DC.SUM ---
General Admission date:: 03/01/22 Discharge date: 03/03/22 HPI HPI HPI: Ms. Harris is a 76-year-old female who presented from home via EMS to the ER after a fall. Son reportedly called EMS to bring her in because he was concerned about her falling and being more weak. No family at bedside at time of evaluation. History obtained from patient as best as possible however she is a very poor historian and unable to give significant contacts. She appears pleasantly confused. Reports she has had a little cough. Unable to give much more history. Complains of some pain but cannot localize as to where. Is pleased to hear she is going to be admitted to the hospital. Work-up in the ER concerning for UTI, pneumonia, rhabdomyolysis, and JOANNE on CKD. Baseline creatinine around 1.4. Creatinine and BUN elevated to 2 and 53 respectively on initial labs. Leukocytosis of 15,000. CK greater than 2000. Patient initiated on Levaquin, IV fluids, and medicine consulted for admission and further management. Per report from ER, patient reportedly lives at home by herself with family close by who check on her regularly. She appears very unkempt, long toenails with significant scale on lower legs and chronic stasis changes. Afebrile and hemodynamically stable on room air. She is otherwise confused at the time of evaluation and unable to give me any information. Past history and review of systems per chart Hospital Course Hospital Course Hospital Course: Patient was admitted to medicine service and initiated on IV fluids for JOANNE on CKD secondary to rhabdomyolysis. There is rapid improvement in kidney function with fluids and also a subsequent decrease in creatinine kinase. Urine analysis demonstrated UTI for which patient was treated with Zosyn and improved clinically. Due to prior sensitivities demonstrating resistance to Levaquin and sensitivity to Augmentin patient was prescribed Augmentin for 5 days on outpatient basis. Numerous skin lesions intertrigo were evaluated and patient was started on nystatin and mupirocin. Wound consult was placed. Encephalopathy likely secondary to dementia improved. Patient unlikely to be able to care for herself at home. Case management plan for admission to [facility]. Patient continued to clinically improve and remained hemodynamically stable. Rhabdomyolysis and JOANNE improved with continuous IV fluids. Patient's mentation improved. Patient was evaluated and deemed appropriate for discharge to [facility] with continued p.o. antibiotics. Would recommend podiatry follow-up on discharge as well as repeat CK on 03/06/2022. Patient would also benefit from restarting her antihypertensive medication that she has not taken for 1 year. Exam Data for Last 24 hours Vital signs and Labs for Last 24 Hours: Temp Pulse Resp BP Pulse Ox 97.9 F 81 16 159/64 H 92 L 03/03/22 08:00 03/03/22 08:00 03/03/22 08:00 03/03/22 08:00 03/03/22 08:00 Laboratory Results - last 24 hr 03/01/22 11:59: Urine Color Yellow, Urine Appearance Cloudy, Urine pH 5.5, Ur Specific [place] >= 1.030, Urine Protein 2+, Urine Glucose (UA) Negative, Urine Ketones Trace, Urine Blood 2+, Urine Nitrate Positive, Urine Bilirubin Negative, Urine Urobilinogen 0.2, Ur Leukocyte Esterase 2+ A, Urine RBC 10-20, Urine WBC 10-20, Ur Squamous Epith Cells None, Urine Bacteria 3+ 03/03/22 06:15: WBC 12.6 H, RBC 4.14 L, Hgb 11.5 L, Hct 35.2 L, MCV 85.2, MCH 27.9, MCHC 32.7, RDW 14.9, Plt Count 176, MPV 7.9, Neut % (Auto) 80.8 H, Lymph % (Auto) 12.9, [place] % (Auto) 3.4, Eos % (Auto) 2.4, Baso % (Auto) 0.5, Neut # (Auto) 10.2 H, Lymph # (Auto) 1.6, [place] # (Auto) 0.4, Eos # (Auto) 0.3, Baso # (Auto) 0.1 03/03/22 06:15: Sodium 136, Potassium 3.8, Chloride 107, Carbon Dioxide 20 L, Anion Gap 12.8, BUN 56 H, Creatinine 1.80 H, Estimated Creat Clear 43, Estimated GFR 27 L, Est GFR ( Amer) 33 L, Glucose 127 H, Calcium 8.2 L, Magnesium 1.9, Total [place]
[2022-03-03 14:30] VITALS: PULSE 81; RESP 18
--- NOTE | 2022-03-03 15:31 | PC.NURSE ---
REPORT CALLED TO Ever VEGA LPN/ [facility], [facility] [place].
--- NOTE | 2022-03-03 15:34 | PC.NURSE ---
SON/ANTONELLA CUMMINGS NOTIDIED OF MOTHERS DISCHARGE TO [facility].
--- NOTE | 2022-03-03 15:53 | PC.NURSE ---
EMS/AMBULANCE SERVICE NOTIFIED FOR TRANSPORT
[2022-03-03 16:00] VITALS: BP 175/75; PULSE 69; RESP 16; TEMP 36.9; O2SAT 94
[2022-03-03 16:08] LABS: POC Glucose,Bedside 152 (70-110)
--- NOTE | 2022-03-03 17:56 | PC.NURSE ---
TRANSFERED TO [facility] AT [phone].
== END 2022-03-03 17:50 | DRG 564 ==
LOC: ER 14:49 → 2ND 15:27
PROVIDERS: Internal Medicine Adolescent Medicine; Admitting Provider Student in an Organized Health Care Education/Training Program; Emergency Provider Emergency Medicine; PCP Family Medicine; Visit Provider Student in an Organized Health Care Education/Training Program
DX: T79.6XXA Traumatic ischemia of muscle, initial encounter (principal); I21.4 Non-ST elevation (NSTEMI) myocardial infarction; N17.9 Acute kidney failure, unspecified; I13.0 Hypertensive heart and chronic kidney disease with heart failure and stage 1 through stage 4 chronic kidney disease, or unspecified chronic kidney disease; N39.0 Urinary tract infection, site not specified; Z68.41 Body mass index [BMI] 40.0-44.9, adult; I50.32 Chronic diastolic (congestive) heart failure; R29.6 Repeated falls; E66.01 Morbid (severe) obesity due to excess calories; E78.2 Mixed hyperlipidemia; L30.4 Erythema intertrigo; F03.90 Unspecified dementia, unspecified severity, without behavioral disturbance, psychotic disturbance, mood disturbance, and anxiety; W19.XXXA Unspecified fall, initial encounter; N18.9 Chronic kidney disease, unspecified
CPT/HCPCS: 36415; 51702; 70450; 71045; 72125; 72170; 73030; 74176; 80048; 80053; 81001; 82550; 82553; 82962; 83605; 83690; 83735; 84484; 85007; 85025; 87040; 87086; 87088; 87186; 93005; 97110; 97162; 97166; 97530; 99285; C9803; J1956; J2543; U0003; U0005

== ENCOUNTER → 2022-03-06 07:50 | Outpatient (REF) | payer MEDICARE, OTHER, SELFPAY ==
[2022-03-06 08:24] LABS: Basophils # 0.1 K/mm3 (0-0.2); Basophils % 0.6 % (0.1-2.0); Eosinophils # 0.1 K/mm3 (0.0-0.4); Eosinophils % 1.5 % (0.1-12.0); Hematocrit 36.7 % (37.0-47.0); Hemoglobin 11.7 g/dL (12.2-16.2); Lymphocytes # 1.5 K/mm3 (0.7-4.5); Lymphocytes % 17.5 % (10-50); Mean Corpuscular HGB Conc 31.9 g/dL (31.8-35.4); Mean Corpuscular Hemoglobin 27.9 pg (27.0-31.2); Mean Corpuscular Volume 87.6 fl (81-99); Mean Platelet Volume 7.9 fl (7.4-10.4); Monocytes # 0.5 K/mm3 (0.1-1.0); Monocytes % 5.1 % (1.7-9.3); Neutrophils # 6.6 K/mm3 (1.8-7.8); Neutrophils % 75.3 % (37.0-80.0); Platelet Count 227 K/mm3 (142-424); Red Blood Count 4.19 M/mm3 (4.20-5.40); Red Cell Distribution Width 14.9 % (11.5-17.5); White Blood Count 8.8 K/mm3 (4.8-10.8)
[2022-03-06 09:22] LABS: Alanine Aminotransferase 28 U/L (12-78); Albumin Level 2.5 g/dl (3.5-5.0); Alkaline Phosphatase 136 U/L (38-126); Anion Gap 18.3 mEq/L (5-15); Aspartate Amino Transferase 39 U/L (14-36); Bilirubin,Total 0.5 mg/dl (0.2-1.3); Blood Urea Nitrogen 44 mg/dl (7-17); Calcium 8.2 mg/dl (8.4-10.2); Carbon Dioxide 22 mmol/L (22.0-30.0); Chloride 100 mmol/L (98-107); Estimated Glomerular Filt Rate 34 ml/min (>60); GFR (African American) 41 ML/MIN (>60); Globulin 2.5 g/dL (1.3-3.2); Glucose 113 mg/dl (74-100); Potassium 4.3 mmoL/L (3.5-5.1); Sodium 136 mmol/L (136-145)
== END ==
LOC: LAB.DROPOF 07:50
PROVIDERS: Nurse Practitioner Family; Visit Provider Internal Medicine Adolescent Medicine
DX: N17.2 Acute kidney failure with medullary necrosis (principal)
CPT/HCPCS: 80053; 85025

== ENCOUNTER 2022-12-21 17:28 | Emergency (ER) | payer MEDICARE, OTHER, SELFPAY ==
[2022-12-21 17:28] VITALS: BP 149/58; PULSE 63; RESP 16; TEMP 36.6; O2SAT 97; BMI 41.9
--- NOTE | 2022-12-21 17:40 | XR_ITS ---
PROCEDURE INFORMATION: Exam: XR Left Hip Exam date and time: 12/21/2022 6:02 PM Age: 77 years old Clinical indication: Injury or trauma; Fall; Blunt trauma (contusions or hematomas); Left; Hip; Additional info: Fall, concern for hip FX L TECHNIQUE: Imaging protocol: Radiologic exam of the left hip. Views: 2 or 3 views hip with pelvis when performed. COMPARISON: CR XR PELVIS 1-2V 03/01/2022 1:43 PM FINDINGS: Bones/joints: [id number] degenerative changes of both hips and mild degenerative changes of the SI joints. Associated subarticular cystic change in the left acetabulum largest measuring 25 mm compatible with degenerative related geodes similar to previous. No acute fracture. Soft tissues: Unremarkable. IMPRESSION: Degenerative changes. No acute bony abnormality.
--- NOTE | 2022-12-21 17:40 | XR_ITS ---
PROCEDURE INFORMATION: Exam: XR Left Femur Exam date and time: 12/21/2022 6:04 PM Age: 77 years old Clinical indication: Injury or trauma; Fall; Blunt trauma; Thigh or upper leg; Left; Additional info: Fall, concern for hip FX L TECHNIQUE: Imaging protocol: Radiologic exam of the left femur. Views: 2 views. COMPARISON: CR XR HIP LT 2-3V W/PELVIS 12/21/2022 6:02 PM FINDINGS: Bones/joints: Unremarkable. No acute fracture. Soft tissues: Unremarkable. IMPRESSION: No acute findings.
--- NOTE | 2022-12-21 17:40 | XR_ITS ---
PROCEDURE INFORMATION: Exam: XR Chest Exam date and time: 12/21/2022 6:01 PM Age: 77 years old Clinical indication: Injury or trauma; Fall; Blunt trauma (contusions or hematomas) TECHNIQUE: Imaging protocol: Radiologic exam of the chest. Views: 1 view. COMPARISON: CR XR CHEST PORTABLE 03/01/2022 11:59 AM FINDINGS: Lungs: Unremarkable. No consolidation. Pleural spaces: Unremarkable. No pleural effusion. No pneumothorax. Heart/Mediastinum: Unremarkable. No cardiomegaly. Bones/joints: Unremarkable. IMPRESSION: No acute findings.
--- NOTE | 2022-12-21 17:56 | PC.NURSE ---
Dr. Ruth and BAILEY at
[2022-12-21 17:58] LABS: Basophils % 0.4 % (0.1-2.0); Eosinophils # 0.7 K/mm3 (0.0-0.4); Hematocrit 42.7 % (37.0-47.0); Hemoglobin 13.9 g/dL (12.2-16.2); Lymphocytes # 1.6 K/mm3 (0.7-4.5); Mean Corpuscular HGB Conc 32.6 g/dL (31.8-35.4); Mean Corpuscular Hemoglobin 29.4 pg (27.0-31.2); Mean Corpuscular Volume 90.1 fl (81-99); Mean Platelet Volume 8.1 fl (7.4-10.4); Monocytes # 0.6 K/mm3 (0.1-1.0); Monocytes % 5.6 % (1.7-9.3); Neutrophils # 6.9 K/mm3 (1.8-7.8); Platelet Count 226 K/mm3 (142-424); Red Blood Count 4.74 M/mm3 (4.20-5.40); White Blood Count 9.8 K/mm3 (4.8-10.8)
[2022-12-21 18:06] LABS: Chloride 108 mmol/L (98-107); Sodium 143 mmol/L (136-145)
[2022-12-21 18:07] LABS: Potassium 4.1 mmoL/L (3.5-5.1)
[2022-12-21 18:09] LABS: Alanine Aminotransferase 21 U/L (12-78); Albumin Level 3.9 g/dl (3.5-5.0); Albumin/Globulin Ratio 1.1 (1.1-1.8); Alkaline Phosphatase 151 U/L (38-126); Anion Gap 15.1 mEq/L (5-15); Aspartate Amino Transferase 24 U/L (14-36); Bilirubin,Total 0.8 mg/dl (0.2-1.3); Blood Urea Nitrogen 45 mg/dl (7-17); Calcium 9.7 mg/dl (8.4-10.2); Carbon Dioxide 24 mmol/L (22.0-30.0); Creatine Kinase 48 U/L (30-135); Creatinine Clearance Estimated 26 mL/min (50-200); Estimated Glomerular Filt Rate 29 ml/min (>60); GFR (African American) 35 ML/MIN (>60); Globulin 3.7 g/dL (1.3-3.2); Glucose 219 mg/dl (74-100); Total Protein,Serum 7.6 g/dl (6.3-8.2)
--- NOTE | 2022-12-21 18:17 | HMH.EDGENADL ---
Discharge Plan Disposition Patient Disposition: Home, Self-Care Chief Complaint: Fall Prescriptions Prescriptions: No Action lisinopril 20 mg Tablet 20 mg PO BID clopidogrel [Plavix] 75 mg Tablet 75 mg PO DAILY metoprolol tartrate 50 mg Tablet 50 mg PO DAILY aspirin [Huang Chewable Aspirin] 81 mg Tablet,Chewable 81 mg PO DAILY hydrochlorothiazide 25 mg Tablet 25 mg PO DAILY duloxetine 60 mg Capsule,Delayed Release(Dr/Ec) 60 mg PO DAILY febuxostat 80 mg Tablet 80 mg PO DAILY Referrals Follow up/Referrals: Provider,Referral, MD [Primary Care Provider] - See instructions Clinical Impressions Clinical Impression: Acute hip pain Discharge ED Provider: Telly Berkowitz General Adult HPI General Chief complaint: Fall Stated complaint: fall Time Seen by Provider: 12/21/22 17:30 Mode of Arrival: EMS Source of Information: Patient Limitations: No Limitations Description of Symptoms (Recalled from ER Triage Doc. by RN): 77 yo F presents to ED with c/o weakness. EMS reports that pt had a fall on 12/19. pts reports she was ambulating restroom and fell. pt had 45 min downtime but no LOC. pt reports pain in left hip, and lower back pain. weakness noted by family. History of Present Illness HPI narrative: 77-year-old female history of hypertension, hyperlipidemia, diabetes, CKD, CHF with left hip pain. Patient fell 2 days prior to arrival. States that she has left hip and buttock pain since that time. Denies numbness, tingling, weakness, but significant pain with any motion of her left lower extremity. No bowel or bladder dysfunction, but patient has been more confused and urinated on herself today, per family. Related Data Home Medications Medication Instructions Recorded Confirmed aspirin 81 mg chewable tablet 81 mg PO DAILY heart health 12/21/22 12/21/22 (Huang Chewable Low Dose Aspirin) clopidogrel 75 mg tablet (Plavix) 75 mg PO DAILY Blood Thinner 12/21/22 12/21/22 duloxetine 60 mg capsule,delayed 60 mg PO DAILY Depression 12/21/22 12/21/22 release febuxostat 80 mg tablet 80 mg PO DAILY gout 12/21/22 12/21/22 hydrochlorothiazide 25 mg tablet 25 mg PO DAILY Edema 12/21/22 12/21/22 lisinopril 20 mg tablet 20 mg PO BID Hypertension 12/21/22 12/21/22 metoprolol tartrate 50 mg tablet 50 mg PO DAILY Hypertension 12/21/22 12/21/22 Allergies Allergy/AdvReac Type Severity Reaction Status Date / Time ceftriaxone [From Rocephin] Allergy Severe Hives Verified 04/08/21 08:16 iodine Allergy Unknown Verified 04/17/20 12:14 NSAIDS (Non-Steroidal Allergy Unknown Verified 04/17/20 12:14 Anti-Inflamma PFSH PFSH Disclaimer: The information contained in this section may have been updated after the patient was seen, as this information can be updated by other users. Medical History (Updated 12/21/22 @ 20:23 by Edmund Ruth MD) BMI 39.0-39.9,adult Concussion with loss of consciousness Elevated troponin Gram positive sepsis Hypertension Morbid obesity with BMI of 40.0-44.9, adult Pain due to onychomycosis of toenail Family History No significant family history Social History Smoking Status: Never smoker alcohol intake: never substance use type: denies use current occupational status: unemployed and retired Travel in the last 8 weeks: None household members: spouse housing: house current occupational exposures/hazards: No caffeine: No ROS Obtained: Yes All systems reviewed & no additional complaints except as documented Physical Exam General General appearance: alert, in no apparent distress and other ( ) Head Head exam: atraumatic and normocephalic Eye Eye exam: Present normal appearance, PERRL and EOMI ENT ENT exam: Present mucous membranes moist Neck Neck exam: Present normal inspection, full ROM and trachea midline Respiratory
--- NOTE | 2022-12-21 18:37 | CT_ITS ---
PROCEDURE INFORMATION: Exam: CT Pelvis Without Contrast; Skeletal Exam date and time: 12/21/2022 6:59 PM Age: 77 years old Clinical indication: Injury or trauma; Fall; Additional info: L true hip pain TECHNIQUE: Imaging protocol: Computed tomography of the pelvis without contrast. Exam focused on the skeleton. Radiation optimization: All CT scans at this facility use at least one of these dose optimization techniques: automated exposure control; mA and/or kV adjustment per patient size (includes targeted exams where dose is matched to clinical indication); or iterative reconstruction. REPORTING DATA: Count of CT and Cardiac NM exams in prior 12 months: This patient has received 3 known CTs and 0 known cardiac nuclear medicine studies in the 12 months prior to the current study. COMPARISON: CT ABDOMEN PELVIS WO CON 03/01/2022 1:29 PM FINDINGS: Bones/joints: [id number] degenerative changes of the left hip and mild degenerative change of the right hip and both SI joints noted. No acute fracture seen. Soft tissues: Unremarkable. IMPRESSION: Degenerative changes. No acute findings.
--- NOTE | 2022-12-21 18:47 | CT_ITS ---
PROCEDURE INFORMATION: Exam: CT Head Without Contrast Exam date and time: 12/21/2022 6:56 PM Age: 77 years old Clinical indication: Altered mental status/memory loss; Additional info: AMS TECHNIQUE: Imaging protocol: Computed tomography of the head without contrast. Radiation optimization: All CT scans at this facility use at least one of these dose optimization techniques: automated exposure control; mA and/or kV adjustment per patient size (includes targeted exams where dose is matched to clinical indication); or iterative reconstruction. REPORTING DATA: Count of CT and Cardiac NM exams in prior 12 months: This patient has received 3 known CTs and 0 known cardiac nuclear medicine studies in the 12 months prior to the current study. COMPARISON: CT HEAD/BRAIN WO CON 03/01/2022 1:25 PM FINDINGS: Brain: No acute intracranial hemorrhage, midline shift or mass effect. Diffuse brain parenchymal volume loss. Redemonstrated old left cerebral infarcts predominantly involving the MCA territory and small left basal ganglia infarcts. Moderate hypodensities within the cerebral white matter most consistent with chronic small-vessel ischemic changes. Cerebral ventricles: No ventriculomegaly. Paranasal sinuses: Mild left maxillary sinus mucosal thickening. Mastoid air cells: Visualized mastoid air cells are well aerated. Bones/joints: Unremarkable. No acute fracture. Soft tissues: Unremarkable. IMPRESSION: 1. No acute intracranial findings. 2. 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
[2022-12-21 18:49] LABS: Microscopic, Urine URINE MICROSCOPIC (MICROSCOPIC)
[2022-12-21 18:51] LABS: Appearance,Urine CLEAR (Clear); Bilirubin,Urine Negative (Negative); Blood, Urine Negative (Negative); Color,Urine YELLOW (Yellow); Glucose,Urine (UA) Negative (Negative); Ketones,Urine Negative (Negative); Leukocyte Esterase,Urine Negative (Negative); Nitrate,Urine Negative (Negative); PH,Urine 5.5 (5.0-8.5); Protein,Urine Negative (Negative); Specific Gravity, Urine 1.025 (1.005-1.030); Urobilinogen,Urine 0.2 EU/dl (0.2)
[2022-12-21 19:07] LABS: Squamous Epithelial Cell,Urine Occasional #/hpf (0-5); WBC,Urine Occasional #/hpf (0-3)
[2022-12-21 19:33] VITALS: BP 159/66; PULSE 66; RESP 20; O2SAT 97
[2022-12-21 20:01] VITALS: BP 181/76; PULSE 64; RESP 18; O2SAT 96
[2022-12-21 20:48] VITALS: BP 118/60; PULSE 67; RESP 14; TEMP 36.7; O2SAT 93
== END 2022-12-21 20:50 | disposition home or self-care (01) ==
PROVIDERS: Emergency Provider Emergency Medicine
DX: M25.552 Pain in left hip (principal); R53.1 Weakness; I13.0 Hypertensive heart and chronic kidney disease with heart failure and stage 1 through stage 4 chronic kidney disease, or unspecified chronic kidney disease; I50.9 Heart failure, unspecified; N18.9 Chronic kidney disease, unspecified; E11.22 Type 2 diabetes mellitus with diabetic chronic kidney disease; E78.5 Hyperlipidemia, unspecified; W19.XXXA Unspecified fall, initial encounter
CPT/HCPCS: 70450; 71045; 72192; 73502; 73552; 80053; 81001; 82550; 85025; 96374; 99285; J0131

== ENCOUNTER → 2022-12-25 09:24 | Outpatient (CLI) | payer MEDICARE, OTHER, SELFPAY ==
--- NOTE | 2022-12-25 09:34 | XR_ITS ---
FINAL REPORT CLINICAL HISTORY: FALL/knee pain FINDINGS: Left knee Two views were obtained. There is no acute fracture or dislocation. T there are mild degenerative changes. Vascular calcification is identified. IMPRESSION: No acute process. Reviewed, Interpreted and Dictated by Sky Ryan III, MD Transcribed by Ashlee Huynh Authenticated and [facility]
== END ==
PROVIDERS: PCP Family Medicine; Visit Provider Family Medicine
DX: S89.92XA Unspecified injury of left lower leg, initial encounter (principal); Y99.9 Unspecified external cause status
CPT/HCPCS: 73560

== ENCOUNTER 2023-06-05 15:23 | Inpatient (IN) | payer MEDICARE, OTHER, SELFPAY ==
[2023-06-05 15:23] VITALS: BP 159/91; PULSE 80; RESP 18; TEMP 36.7; O2SAT 98; BMI 42.5
--- NOTE | 2023-06-05 15:33 | PC.NURSE ---
Dr. Ruth at [facility] for pt eval
--- NOTE | 2023-06-05 15:39 | XR_ITS ---
PROCEDURE INFORMATION: Exam: XR Chest Exam date and time: 06/05/2023 3:58 PM Age: 78 years old Clinical indication: Other: Weakness; Additional info: Confusion, weakness TECHNIQUE: Imaging protocol: Radiologic exam of the chest. Views: 1 view. COMPARISON: CR XR CHEST PORTABLE 12/21/2022 6:01 PM FINDINGS: Lungs: Vague lower lobe ground-glass opacification more apparent on the current study but may be secondary to breast attenuation artifact. No consolidation. Pleural spaces: Unremarkable. No pleural effusion. No pneumothorax. Heart/Mediastinum: Unremarkable. No cardiomegaly. Bones/joints: Unremarkable for age. IMPRESSION: Ill-defined ground-glass opacification lower lung zones that may be secondary to overlying breast attenuation artifact and could be confirmed on follow-up PA and lateral chest exam.
--- NOTE | 2023-06-05 15:41 | CT_ITS ---
PROCEDURE INFORMATION: Exam: CT Head Without Contrast Exam date and time: 06/05/2023 3:54 PM Age: 78 years old Clinical indication: Altered mental status/memory loss; Confusion or disorientation; Additional info: AMS, dysarthria TECHNIQUE: Imaging protocol: Computed tomography of the head without contrast. Radiation optimization: All CT scans at this facility use at least one of these dose optimization techniques: automated exposure control; mA and/or kV adjustment per patient size (includes targeted exams where dose is matched to clinical indication); or iterative reconstruction. COMPARISON: CT HEAD/BRAIN WO CON 12/21/2022 6:56 PM FINDINGS: Brain: No evidence of intracerebral hemorrhage. No compelling evidence of acute infarct. Redemonstrated areas of encephalomalacia left frontal and left posterior parietal lobe secondary to old infarcts. Multiple old lacunar infarcts left basal ganglia also unchanged. Diffuse chronic white matter microvascular changes throughout the periventricular white matter bilaterally, stable. Moderate age-related cerebral volume loss, stable. No significant interval changes. Cerebral ventricles: Unremarkable for age. Paranasal sinuses: Visualized sinuses are unremarkable. No fluid levels. Mastoid air cells: Visualized mastoid air cells are well aerated. Bones/joints: Unremarkable. No acute fracture. Soft tissues: Unremarkable. IMPRESSION: 1. No acute intracranial abnormalities. 2. Evidence of old left cerebral infarcts and diffuse chronic white matter microvascular changes.
[2023-06-05 15:49] LABS: Microscopic, Urine URINE MICROSCOPIC (MICROSCOPIC)
[2023-06-05 15:50] LABS: Appearance,Urine CLEAR (Clear); Bilirubin,Urine Negative (Negative); Blood, Urine Negative (Negative); Color,Urine YELLOW (Yellow); Glucose,Urine (UA) Negative (Negative); Ketones,Urine Negative (Negative); Leukocyte Esterase,Urine TRACE (Negative); Nitrate,Urine Negative (Negative); Protein,Urine Negative (Negative); Urobilinogen,Urine 0.2 EU/dl (0.2)
--- NOTE | 2023-06-05 15:50 | ED_ITS ---
Discharge Plan Disposition Patient Disposition: Admitted Chief Complaint: Neuro Symptoms/Deficit Prescriptions Prescriptions: No Action lisinopril 20 mg Tablet 20 mg PO BID clopidogrel [Plavix] 75 mg Tablet 75 mg PO DAILY metoprolol tartrate 50 mg Tablet 50 mg PO DAILY aspirin [Huang Chewable Aspirin] 81 mg Tablet,Chewable 81 mg PO DAILY hydrochlorothiazide 25 mg Tablet 25 mg PO DAILY duloxetine 60 mg Capsule,Delayed Release(Dr/Ec) 60 mg PO DAILY febuxostat 80 mg Tablet 80 mg PO DAILY Referrals Follow up/Referrals: Provider,Referral, MD [Primary Care Provider] - See instructions Clinical Impressions Clinical Impression: Cerebrovascular accident, Acute UTI Discharge ED Provider: Edmund Ruth General Adult HPI General Chief complaint: Neuro Symptoms/Deficit Stated complaint: Weakness Time Seen by Provider: 06/05/23 15:25 History of Present Illness HPI narrative: 78-year-old female history of hypertension, hyperlipidemia, CAD, diastolic dysfunction, CVA with unknown , dementia, CKD presenting with altered mental status. Patient's last known well was just after 2 PM, today 06/05. Patient started acting weak, having difficulty speaking. EMS was called shortly thereafter and patient was brought to the emergency department. On my evaluation, patient not complaining of anything. Denies chest pain, shortness of breath, nausea vomiting, abdominal pain, dysuria, hematuria, diarrhea, constipation, headache, vision changes, or any other concerns. She is having difficulty expressing these, but is ultimately able to find the words. Related Data Home Medications Medication Instructions Recorded Confirmed aspirin 81 mg chewable tablet 81 mg PO DAILY heart health 12/21/22 12/21/22 (Huang Chewable Low Dose Aspirin) clopidogrel 75 mg tablet (Plavix) 75 mg PO DAILY Blood Thinner 12/21/22 12/21/22 duloxetine 60 mg capsule,delayed 60 mg PO DAILY Depression 12/21/22 12/21/22 release febuxostat 80 mg tablet 80 mg PO DAILY gout 12/21/22 12/21/22 hydrochlorothiazide 25 mg tablet 25 mg PO DAILY Edema 12/21/22 12/21/22 lisinopril 20 mg tablet 20 mg PO BID Hypertension 12/21/22 12/21/22 metoprolol tartrate 50 mg tablet 50 mg PO DAILY Hypertension 12/21/22 12/21/22 Allergies Allergy/AdvReac Type Severity Reaction Status Date / Time ceftriaxone [From Konstantin] Allergy Severe Hives Verified 04/08/21 08:16 iodine Allergy Unknown Verified 04/17/20 12:14 NSAIDS (Non-Steroidal Allergy Unknown Verified 04/17/20 12:14 [facility] Disclaimer: The information contained in this section may have been updated after the patient was seen, as this information can be updated by other users. Medical History (Updated 06/05/23 @ 17:21 by Edmund Ruth MD) BMI 39.0-39.9,adult Concussion with loss of consciousness Elevated troponin Gram positive sepsis Hypertension Morbid obesity with BMI of 40.0-44.9, adult Pain due to onychomycosis of toenail Family History No significant family history Social History Smoking Status: Unknown if ever smoked alcohol intake: never substance use type: denies use current occupational status: unemployed and retired Travel in the last 8 weeks: None household members: spouse housing: house current occupational exposures/hazards: No caffeine: No ROS Obtained: Yes All systems reviewed & no additional complaints except as documented Physical Exam General General appearance: alert and in no apparent distress Head Head exam: atraumatic and normocephalic Eye Eye exam: Present normal appearance, PERRL and EOMI ENT ENT exam: Present mucous membranes moist Neck Neck exam: Present normal inspection, full ROM and trachea midline Respiratory Respiratory exam: Absent respiratory distress, wheezes, stridor, accessory muscle use or prolonged expiratory phase Cardiovascular Cardiovascular exam: Present regular rate, normal rhythm and systolic murmur Abdominal Exam Abdominal exam: Present soft; Absent distention, tenderness, guarding, rebound or rigidity Extremities Exam Extremities exam: Present edema (nonpitting) Neurological Exam Neurological exam: Present alert, oriented X3, normal gait and motor sensory deficit (RLE numbness compared to LLE); Absent CN II-XII intact (dysarthria) Skin Skin exam: Present warm and dry; Absent diaphoresis or erythema Medical Decision Making Medical Records Medical records reviewed: Yes I reviewed the patient's medical records. Brennan Inquiry Pt receiving controlled substance: No Brennan was queried for this patient: No Vital Signs: 06/05/23 15:23 Temperature 98.1 F Temperature Source Oral Pulse Rate [Right] 80 Respiratory Rate 18 Blood Pressure [Right Arm] 159/91 H Blood Pressure Mean [Right Arm] 113 02 Sat by Pulse Oximetry 98 Oxygen Delivery Method Room Air Lab Data Lab Results 06/05/23 15:30: WBC 8.2, RBC 5.30, Hgb 15.7, Hct 49.2 H, MCV 92.8, MCH 29.6, MCH C 31.9, RDW 13.2, Plt Count 172, MPV 8.4, Neut % (Auto) 59.1, Lymph % (Auto) 27.8, [place] % (Auto) 7.2, Eos % (Auto) 5.3, Baso % (Auto) 0.7, Neut # (Auto) 4.8, Lymph # (Auto) 2.3, [place] # (Auto) 0.6, Eos # (Auto) 0.4, Baso # (Auto) 0.1, Sodium 142, Potassium 4.2, Chloride 105, Carbon Dioxide 34 H, Anion Gap 7.2, BUN 37 H, Creatinine 1.60 H, Estimated GFR 31 L, Est GFR ( Amer) 38 L, Glucose 102 H, Calcium 9.3, Total Bilirubin 0.5, AST 30, ALT 25, Alkaline Phosphatase 163 H, Troponin I < 0.01, NT-Pro-B Natriuret Pep 182, Total Protein 7.4, Albumin 4.1, Globulin 3.3 H, Albumin/Globulin Ratio 1.2 06/05/23 15:32: Urine Color Yellow, Urine Appearance Clear, Urine pH 6.0, Ur Specific [place] 1.010, Urine Protein Negative, Urine Glucose (UA) Negative, Urine Ketones Negative, Urine Blood Negative, Urine Nitrate Negative, Urine Bilirubin Negative, Urine Urobilinogen 0.2, Ur Leukocyte Esterase Trace, Urine RBC None, Urine WBC Occasional, Ur Squamous Epith Cells 3-5, Urine Bacteria Trac e 06/05/23 15:30 06/05/23 15:30 Orders (Tests/Meds): ED MEDICATIONS Generic Name Dose Route Start Last Admin Trade Name Freq PRN Reason Stop Dose Admin Atorvastatin Calcium 40 mg 06/05/23 21:00 Atorvastatin 40mg Tablet PO 07/05/23 20:59 HS MACARENA Discontinued Medications Generic Name Dose Route Start Last Admin Trade Name Freq PRN Reason Stop Dose Admin Aspirin 325 mg 06/05/23 17:00 Aspirin 325mg Tablet PO 06/05/23 17:01 ONCE ONE Diphenhydramine HCl 25 mg 06/05/23 16:05 06/05/23 16:13 Diphenhydramine 50mg/Ml Vial IV 06/05/23 16:06 25 mg ONCE ONE Administration Methylprednisolone Sodium Succinate 125 mg 06/05/23 16:05 06/05/23 16:13 Methylprednisolone Sod Succ 125mg Vial IV 06/05/23 16:06 125 mg ONCE ONE Administration Nitrofurantoin Macrocrystals 100 mg 06/05/23 17:02 Nitrofurantoin 100mg Capsule PO 06/05/23 17:03 ONCE ONE ORDERS Category Date Time Status CT head/brain wo con Stat Cat Scan 06/05/23 15:41 Completed CXR --portable [XR chest portable] Stat Exams 06/05/23 15:39 Completed Brain Natriuretic Peptide Stat Lab 06/05/23 15:30 Completed CBC w/Auto Diff [Complete Blood Count Auto Diff] Stat Lab 06/05/23 15:30 Completed CMP [Comprehensive Metabolic Panel] Stat Lab 06/05/23 15:30 Completed Trop I [Troponin I] Stat Lab 06/05/23 15:30 Completed Troponin I Q3H Lab 06/05/23 18:45 Ordered Troponin I Q3H Lab 06/05/23 21:45 Ordered UA [Urinalysis and Microscopic] Stat Lab 06/05/23 15:32 Completed ECG initial [place] Routine Y 06/05/23 16:09 Completed Medical Decision Narrative: 78-year-old female history of hypertension, hyperlipidemia, CAD, diastolic dysfunction, CVA with unknown , dementia, CKD presenting with altered mental status. Patient's last known well was just after 2 PM, today 06/05. Patient started acting weak, having difficulty speaking. EMS was called shortly thereafter and patient was brought to the emergency department. On my evaluation, patient not complaining of anything. Denies chest pain, shortness of breath, nausea vomiting, abdominal pain, dysuria, hematuria, diarrhea, constipation, headache, vision changes, or any other concerns. She is having difficulty expressing these, but is ultimately able to find the words. It should be noted that patient has dementia and previous CVA with unknown residual deficits which is complicating care. History was obtained via conversation with patient, EMS. On arrival, patient hemodynamically stable, alert, oriented x4, appropriate, GCS 15, moving all extremities spontaneously, pupils equal and reactive to light. Full physical exam performed and significant for NIHSS 2 for right lower extremity numbness as compared to the left and mild dysarthria. Motor exam intact and symmetric. Cranial nerves otherwise intact. Cardiac exam si gnificant for right upper sternal border murmur. Bilateral lower extremities with nonpitting edema. Lungs clear to auscultation bilaterally. Differential includes metabolic, UTI, pneumonia, sepsis, CVA, ACS, MA, encephalitis, seizure, intracranial bleed, trauma, neoplastic among others. Patient was given full dose aspirin for symptomatic management and correction of underlying abnormalities. Workup independently interpreted and significant for nonactionable CBC or chemistry. Stable kidney function. Negative BNP and troponin. CT head obtained without acute intracranial abnormality see radiology read for full review of final results. Independent interpretation of EKG shows sinus rhythm 71 beats a minute. SC interval 130 ms, QRS 89 ms, QT within normal limits. CTA of the head and neck was considered and patient was given Solu-Medrol and Benadryl prior to this. After further discussion, patient symptoms actually improving significantly. She is opting out of receiving IV contrast due to the risks, despite having had a cardiac catheterization since that time that she remembers telling staff that she had a contrast allergy. Patient opting to wait for MRI at this time and voiced risks and benefits, I think this is appropriate given NIH of 2. On reevaluation, patient symptoms improving, still NIH of 2. Hospital medicine was contacted and case was discussed at length, ultimately patient to be admitted for further imaging with MRI and medical management with statin a ddition. Given patient presentation, workup, history, this most likely represents AMS from UTI versus CVA with residual deficit. Because patient high risk for clinical decompensation, deemed appropriate for inpatient admission. Results were relayed to patient who voiced understanding and patient was agreeable to inpatient admission and management. Patient was admitted to the hospital for further definitive management. Critical Care Critical Care Time Critical Care Time: Yes (neuro) Attestation: On 06/05/23, the high probability of a clinically significant, sudden or life threatening deterioration of the following system(s) required my full and direct attention, intervention and personal management. The time I documented below is in addition to time spent performing reported procedures but includes the following listed in this critical care notation. Total Time Total Critical Care Time: 35
[2023-06-05 15:54] LABS: Basophils # 0.1 K/mm3 (0-0.2); Basophils % 0.7 % (0.1-2.0); Chloride 105 mmol/L (98-107); Eosinophils # 0.4 K/mm3 (0.0-0.4); Eosinophils % 5.3 % (0.1-12.0); Hematocrit 49.2 % (37.0-47.0); Hemoglobin 15.7 g/dL (12.2-16.2); Lymphocytes # 2.3 K/mm3 (0.7-4.5); Lymphocytes % 27.8 % (10-50); Mean Corpuscular HGB Conc 31.9 g/dL (31.8-35.4); Mean Corpuscular Hemoglobin 29.6 pg (27.0-31.2); Mean Corpuscular Volume 92.8 fl (81-99); Mean Platelet Volume 8.4 fl (7.4-10.4); Monocytes # 0.6 K/mm3 (0.1-1.0); Monocytes % 7.2 % (1.7-9.3); Neutrophils # 4.8 K/mm3 (1.8-7.8); Neutrophils % 59.1 % (37.0-80.0); Platelet Count 172 K/mm3 (142-424); Potassium 4.2 mmoL/L (3.5-5.1); Red Cell Distribution Width 13.2 % (11.5-17.5); Sodium 142 mmol/L (136-145); White Blood Count 8.2 K/mm3 (4.8-10.8)
[2023-06-05 15:56] LABS: Blood Urea Nitrogen 37 mg/dl (7-17); Estimated Glomerular Filt Rate 31 ml/min (>60); GFR (African American) 38 ML/MIN (>60)
[2023-06-05 15:57] LABS: Alanine Aminotransferase 25 U/L (12-78); Albumin Level 4.1 g/dl (3.5-5.0); Albumin/Globulin Ratio 1.2 (1.1-1.8); Alkaline Phosphatase 163 U/L (38-126); Anion Gap 7.2 mEq/L (5-15); Aspartate Amino Transferase 30 U/L (14-36); Bilirubin,Total 0.5 mg/dl (0.2-1.3); Calcium 9.3 mg/dl (8.4-10.2); Carbon Dioxide 34 mmol/L (22.0-30.0); Globulin 3.3 g/dL (1.3-3.2); Glucose 102 mg/dl (74-100); Total Protein,Serum 7.4 g/dl (6.3-8.2)
[2023-06-05 16:02] LABS: Bacteria,Urine Trace /lpf; WBC,Urine Occasional #/hpf (0-3)
[2023-06-05 16:07] LABS: NT Pro Brain Natriuretic Pep. 182 pg/mL (0-450)
--- NOTE | 2023-06-05 16:09 | ECG_ITS ---
APPROVED REPORT Exam: Resting ECG HR:71 bpm ECG Measurements Heart Rate 71 AXES TN 133 P 243 QRSd 89 QRS -14 QT 416 T 37 QTc 439 Conclusion JUNCTIONAL RHYTHM ABNORMAL RHYTHM ECG UNCONFIRMED REPORT Electronically signed by : Mickey Singh MD 06/06/2023 15:54:28
--- NOTE | 2023-06-05 16:11 | PC.NURSE ---
PT returned to room from RAD
[2023-06-05 16:12] LABS: Troponin I < 0.01 ng/ml (0.00-0.034)
[2023-06-05] MEDS: METHYLPREDNISOLONE SOD SUCC 125MG VIAL 125 MG IV (16:13)
[2023-06-05] MEDS: diphenhydrAMINE 50MG/ML VIAL 25 MG IV (16:13)
--- NOTE | 2023-06-05 16:43 | PC.NURSE ---
Dr. Ruth at BS to update pt on POC
--- NOTE | 2023-06-05 16:58 | PC.NURSE ---
dr marin speaking with dr capps
--- NOTE | 2023-06-05 17:09 | PC.NURSE ---
house called for admission DX TIA
[2023-06-05 17:35] VITALS: BP 171/96; PULSE 80; O2SAT 96
--- NOTE | 2023-06-05 17:38 | PC.NURSE ---
Rounded on pt. No needs voiced at this time. Call light within reach.
[2023-06-05 18:00] VITALS: BP 170/88; PULSE 75; PULSE 82; RESP 17; TEMP 36.7; O2SAT 94; O2SAT 98
[2023-06-05] MEDS: ASPIRIN 325MG TABLET 325 MG PO (18:18)
[2023-06-05] MEDS: NITROFURANTOIN 100MG CAPSULE 100 MG PO (18:18)
--- NOTE | 2023-06-05 18:20 | P.HP_ITS ---
History of Present Illness *Admission Date: 06/05/23 *Reason for visit:: dysarthria, unilateral weakness *History of present illness: Ms. Harris is a 78-year-old female history of hypertension, hyperlipidemia, CAD, diastolic dysfunction, dementia, CKD who presented to the ER from [facility] because of right-sided weakness and some confusion. Patient reports and history from nursing facility states that earlier today at approximately 2 PM she developed right-sided weakness, difficulty finding words, and some confusion. Patient was sent via EMS to the ER for further management. On initial evaluation, had right-sided weakness and dysarthria. During eval in the ER, symptoms gradually showed improvement. CT of head was obtained without contrast due to contrast allergy that did not show any acute stroke. Labs relatively normal with no leukocytosis, stable kidney function and electrolytes. UA concerning for UTI however. Patient is on aspirin and Plavix but not a statin at nursing facility. Unsure how long she has been at the nursing facility. Previously was living at home by herself. Denies any chest pain, shortness of breath, nausea, vomiting, abdominal pain or diarrhea. Has been receiving therapy services at the nursing facility. Medicine consulted for admission for further management of TIA and therapy consults. On evaluation, neuroexam shows no focal deficits unilaterally. Answers tangentially to questions. Able to speak in complete sentences but answers are not necessarily appropriate with questions asked. Appears to be pleasantly confused. [facility] Disclaimer: The information contained in this section may have been updated after the patient was seen, as this information can be updated by other users. Medical History BMI 39.0-39.9,adult Concussion with loss of consciousness Elevated troponin Gram positive sepsis Hypertension Morbid obesity with BMI of 40.0-44.9, adult Pain due to onychomycosis of toenail Family History No significant family history Social History (Updated 06/05/23 @ 19:07 by Darlene Issa RN) Smoking Status: Unknown if ever smoked alcohol intake: never substance use type: denies use current occupational status: unemployed and retired Travel in the last 8 weeks: None household members: spouse housing: house current occupational exposures/hazards: No caffeine: No Review of Systems Review of Systems Review of systems (narrative): 14 point review of systems performed, pertinent positives and negatives as per [facility] Meds Home Medications and Allergies Home Medications Medication Instructions Recorded Confirmed Type aspirin 81 mg chewable tablet 81 mg PO DAILY heart health 12/21/22 12/21/22 History (Huang Chewable Low Dose Aspirin) clopidogrel 75 mg tablet (Plavix) 75 mg PO DAILY Blood Thinner 12/21/22 12/21/22 History duloxetine 60 mg capsule,delayed 60 mg PO DAILY Depression 12/21/22 12/21/22 History release febuxostat 80 mg tablet 80 mg PO DAILY gout 12/21/22 12/21/22 History hydrochlorothiazide 25 mg tablet 25 mg PO DAILY Edema 12/21/22 12/21/22 History lisinopril 20 mg tablet 20 mg PO BID Hypertension 12/21/22 12/21/22 History metoprolol tartrate 50 mg tablet 50 mg PO DAILY Hypertension 12/21/22 12/21/22 History New Prescriptions to Start Prescriptions: Allergies Allergy/AdvReac Type Severity Reaction Status Date / Time ce[facility]ri[facility] Allergy Severe Hives Verified 04/08/21 08:16 iodine Allergy Unknown Verified 04/17/20 12:14 NSAIDS (Non-Steroidal Allergy Unknown Verified 04/17/20 12:14 Anti-Inflamma Exam Data for Last 24 hours Vital signs and Labs for Last 24 Hours: Temp Pulse Resp BP Pulse Ox O2 Del Method 98.1 F 80 18 171/96 H 96 Room Air 06/05/23 15:23 06/05/23 17:35 06/05/23 15:23 06/05/23 17:35 06/05/23 17:35 06/05/23 17:35 Laboratory Results - last 24 hr 06/05/23 15:30: WBC 8.2, RBC 5.30, Hgb 15.7, Hct 49.2 H, MCV 92.8, MCH 29.6, MCHC 31.9, RDW 13.2, Plt Count 172, MPV 8.4, Neut % (Auto) 59.1, Lymph % (Auto) 27.8, [place] % (Auto) 7.2, Eos % (Auto) 5.3, Baso % (Auto) 0.7, Neut # (Auto) 4.8, Lymph # (Auto) 2.3, [place] # (Auto) 0.6, Eos # (Auto) 0.4, Baso # (Auto) 0.1, Sodium 142, Potassium 4.2, Chloride 105, Carbon Dioxide 34 H, Anion Gap 7.2, BUN 37 H, Creatinine 1.60 H, Estimated GFR 31 L, Est GFR ( Amer) 38 L, Glucose 102 H, Calcium 9.3, Total Bilirubin 0.5, AST 30, ALT 25, Alkaline Phosphatase 163 H, Troponin I < 0.01, NT-Pro-B Natriuret Pep 182, Total Protein 7.4, Albumin 4.1, Globulin 3.3 H, Albumin/Globulin Ratio 1.2 06/05/23 15:32: Urine Color Yellow, Urine Appearance Clear, Urine pH 6.0, Ur Specific [place] 1.010, Urine Protein Negative, Urine Glucose (UA) Negative, Urine Ketones Negative, Urine Blood Negative, Urine Nitrate Negative, Urine Bilirubin Negative, Urine Urobilinogen 0.2, Ur Leukocyte Esterase Trace, Urine RBC None, Urine WBC Occasional, Ur Squamous Epith Cells 3-5, Urine Bacteria Trace I & O for Last 24 hours: Intake & Output 06/02/23 06/03/23 06/04/23 06/05/23 23:59 23:59 23:59 23:59 Weight 127.006 kg Constitutional Constitutional: no acute distress, morbidly obese, chronically ill appearing and cooperative *Routine HEENT Exam Head: Present normocephalic Eye: Present EOMI and PERRL ENT: Present mucous membranes moist *Routine Neck Exam Neck: Present supple; Absent lymphadenopathy Routine Chest/Breast/Axilla Exam Chest wall: Absent tenderness *Routine Respiratory Exam Respiratory: Present symmetric chest movement; Absent accessory muscle use, prolonged expiratory phase, rhonchi, wheezes, crackles or diminished air movement *Routine Cardiovascular Exam Cardiovascular: Present RRR *Routine Abdominal Exam Abdominal: Present soft and normoactive bowel sounds; Absent tenderness or distended Comments: Mild irritation of skin under abdominal fold *Routine Rectal Exam Rectal:: deferred *Routine Genitalia Exam Genitalia:: normal female Comment:: Brief in place on initial exam, incontinent. *Routine Extremities Exam Extremities: Present edema (Trace edema, chronic stasis dermatitis); Absent cyanosis or clubbing *Routine Skin Exam Skin: Present warm and rash Comments: Mild intertrigo under breasts and under abdomen. *Routine Neurological Exam Neurological: Present alert, altered mental status and moving all extremities Comments: Pleasantly confused; no focal neurologic motor deficit, mild confusion when answering questions. Oriented to self Assessment and Plan *Assessment and plan (1) TIA (transient ischemic attack): Status: Acute Category: Medical Code(s): G45.9 - Transient cerebral ischemic attack, unspecified (2) Acute UTI: Status: Acute Category: Medical Code(s): N39.0 - Urinary tract infection, site not specified (3) Acute confusion: Status: Acute Category: Medical Code(s): R41.0 - Disorientation, unspecified (4) Intertrigo: Status: Chronic Category: Medical Code(s): L30.4 - Erythema intertrigo (5) Renal insufficiency: Status: Chronic Category: Medical Code(s): N28.9 - Disorder of kidney and ureter, unspecified (6) Hypertension: Status: Chronic Qualifiers: Hypertension type: essential hypertension Qualified Code(s): I10 - Essential (primary) hypertension Category: Medical Code(s): I10 - Essential (primary) hypertension (7) Grade II diastolic dysfunction: Status: Chronic Category: Medical Code(s): I51.9 - Heart disease, unspecified (8) CAD (coronary artery disease): Status: Chronic Qualifiers: Associated angina: without angina Coronary Disease-Associated Artery/Lesion type: [place] artery [place] vs. transplanted heart: [place] heart Qualified Code(s): I25.10 - Atherosclerotic heart disease of [place] coronary artery without angina pectoris Category: Medical Code(s): I25.10 - Atherosclerotic heart disease of [place] coronary artery without angina pectoris (9) CVA (cerebral vascular accident): Status: Chronic Category: Medical Code(s): I63.9 - Cerebral infarction, unspecified Plan Ms. Harris is a 78-year-old female with multiple comorbidities who presented to the ER from her nursing facility for acute altered mental status and right- sided weakness. Workup in the ER with negative CT. Would benefit from MRI. UA abnormal concerning for UTI. Deficits improving by the time of admission. Discussed case with ER physician, request admission for therapy eval, MRI, treatment of UTI and further management of TIA versus stroke. Medicine agreed to admit for further management. Problems addressed as follows: Dysarthria Suspected TIA Mild confusion -CT with no acute stroke. MRI ordered, will be obtained Wednesday. Symptoms improving. -Medically managing with aspirin 81 mg daily, Plavix 75 mg daily, initiate high intensity statin with Lipitor 40 mg nightly. -PT, OT, speech consults placed. -Given improvement in symptoms, will evaluate bedside swallow. If does well, will initiate modified diet until speech eval performed. -Does have history of dementia, continue Cymbalta for mood. -Allow for permissive hypertension. Goal blood pressure less than 180/100 Concern for UTI -UA grossly abnormal. White cell count normal 8.2, no signs of anemia. Electrolytes stable with normal sodium at 142, potassium 4.2. -Initiated on Macrobid in the ER with 1 dose. Will transition to Levaquin, renally dosed pending urine culture. CKD: Creatinine 1.6 BUN 37. Appears at her baseline. Caution with nephrotoxins. Gout: resume febuxastat 80 mg daily Intertrigo -Present under breasts and abdomen, initiate nystatin powder Hypertension Hyperlipidemia -Holding blood medication at this time for permissive hypertension as above. Will have him blood pressure medications of metoprolol, PERRL, hydrochlorothiazide when appropriate. DNR DVT prophylaxis with heparin Regular diet
[2023-06-05 19:00] VITALS: BP 155/89; PULSE 91; RESP 20; TEMP 36.5; O2SAT 93
--- NOTE | 2023-06-05 19:01 | PC.NURSE ---
Spoke to patient's son Abelardo who stated he wanted the patient to be a full code until he could talk to her in the am. Verified with Deisy Tamayo that patient's son Abelardo stated he wanted patient to be a full code at this time.
[2023-06-05 19:39] LABS: Troponin I < 0.01 ng/ml (0.00-0.034)
[2023-06-05 20:00] VITALS: BP 158/96; PULSE 90; PULSE 91; RESP 20; TEMP 36.4; O2SAT 92
[2023-06-05] MEDS: LEVOFLOXACIN/D5W 750 MG/150 ML 750 MG/150 ML PIGGYBACK 100 MG IV (20:17)
[2023-06-05] MEDS: ATORVASTATIN 40MG TABLET 40 MG PO (20:17)
[2023-06-05] MEDS: HEPARIN SODIUM 5,000 UNIT/ML VIAL 5000 UNIT SQ (20:17)
[2023-06-05] MEDS: NYSTATIN TOPICAL POWDER 30GM TP (20:17)
--- NOTE | 2023-06-05 21:19 | PC.NURSE ---
Called [facility] to confirm patient medications, talked to Binta, updated medication list according to pt chart and [facility] records.
[2023-06-05 22:34] LABS: Troponin I < 0.01 ng/ml (0.00-0.034)
[2023-06-06] VITALS (8 sets, daily range): BP systolic 155–193; BP diastolic 91–137; PULSE 60–100; RESP 16–20; TEMP 36.4–36.8; O2SAT 93–95; BMI 36.2
--- NOTE | 2023-06-06 05:04 | PC.NURSE ---
Pt is alert and oriented. Pt is slow to get words out. NIH score of 4. Right leg is very weak with minimal movement. Right arm has slight drift. No facial drooping noted. Pt lung sounds clear. Pt has turned herself from side to side. Pt has been restless. No complaints of pain. Pt has been incontinent of the brief, purewick in place. Pt drinks water with no issues and takes pills whole. Abdomen soft, bowel sounds active. Call light in reach. Bed alarm on.
[2023-06-06 07:44] LABS: Basophils % 0.2 % (0.1-2.0); Eosinophils % 0.1 % (0.1-12.0); Hematocrit 47.6 % (37.0-47.0); Hemoglobin 16.1 g/dL (12.2-16.2); Lymphocytes # 1.1 K/mm3 (0.7-4.5); Lymphocytes % 13.5 % (10-50); Mean Corpuscular HGB Conc 33.7 g/dL (31.8-35.4); Mean Corpuscular Hemoglobin 30.8 pg (27.0-31.2); Mean Corpuscular Volume 91.3 fl (81-99); Mean Platelet Volume 8.4 fl (7.4-10.4); Monocytes # 0.2 K/mm3 (0.1-1.0); Monocytes % 2.1 % (1.7-9.3); Neutrophils % 84.1 % (37.0-80.0); Platelet Count 186 K/mm3 (142-424); Red Blood Count 5.21 M/mm3 (4.20-5.40); Red Cell Distribution Width 13.2 % (11.5-17.5); White Blood Count 8.3 K/mm3 (4.8-10.8)
[2023-06-06 07:52] LABS: Chloride 107 mmol/L (98-107); Potassium 4.1 mmoL/L (3.5-5.1); Sodium 141 mmol/L (136-145)
[2023-06-06 07:54] LABS: Alanine Aminotransferase 43 U/L (12-78); Aspartate Amino Transferase 38 U/L (14-36); Blood Urea Nitrogen 35 mg/dl (7-17); Creatinine Clearance Estimated 49 mL/min (50-200); Estimated Glomerular Filt Rate 31 ml/min (>60); GFR (African American) 38 ML/MIN (>60)
[2023-06-06 07:55] LABS: Albumin Level 4.3 g/dl (3.5-5.0); Albumin/Globulin Ratio 1.3 (1.1-1.8); Alkaline Phosphatase 153 U/L (38-126); Anion Gap 12.1 mEq/L (5-15); Bilirubin,Total 0.5 mg/dl (0.2-1.3); Calcium 9.6 mg/dl (8.4-10.2); Carbon Dioxide 26 mmol/L (22.0-30.0); Globulin 3.3 g/dL (1.3-3.2); Glucose 185 mg/dl (74-100); Magnesium 2.2 mg/dl (1.6-2.3); Total Protein,Serum 7.6 g/dl (6.3-8.2)
[2023-06-06] MEDS: NYSTATIN TOPICAL POWDER 30GM TP ×4 (08:39→20:13)
[2023-06-06] MEDS: DOCUSATE SODIUM 100 MG CAPSULE PO (08:39)
[2023-06-06] MEDS: FUROSEMIDE 20MG TABLET 20 MG PO (08:39)
[2023-06-06] MEDS: CLOPIDOGREL 75MG TAB 75 MG PO (08:39)
[2023-06-06] MEDS: HEPARIN SODIUM 5,000 UNIT/ML VIAL 5000 UNIT SQ ×2 (08:39→20:13)
[2023-06-06] MEDS: METOPROLOL TARTRATE 50MG TABLET 50 MG PO (08:39)
[2023-06-06] MEDS: ASPIRIN EC 81MG TABLET 81 MG PO (08:39)
--- NOTE | 2023-06-06 09:48 | P.CONPHA_ITS ---
Pharmacy Intervention Comments: MEDICATION RECONCILIATION COMPLETED ON PATIENT USING MAR FROM [facility]. -CHARLES TOURE, [place]IS[place]
--- NOTE | 2023-06-06 09:48 | HMH.PHAINT1 ---
Pharmacy Intervention Comments: MEDICATION RECONCILIATION COMPLETED ON PATIENT USING MAR FROM [facility]. -CHARLES TOURE, [place]IS[place]
--- NOTE | 2023-06-06 10:06 | P.PN_ITS ---
Subjective *Date: 06/06/23 *Time: 10:06 Interval history: Still having word finding difficulty, stumbles through her sentences. Right side strength 4/5 in upper and lower extremity. Left side strength 5/5 in upper and lower extremity. Tolerating p.o. intake, no choking or coughing. No shortness of breath or chest pain. No nausea or vomiting. Afebrile overnight Medical Exam Vital signs and Labs for Last 24 Hours: Vital Signs Temp Pulse Pulse Resp BP BP Pulse Ox 06/06/23 08:40 06/06/23 08:00 06/06/23 08:00 98.2 F 94 H 18 166/113 H 93 L 06/06/23 06:56 06/06/23 05:41 94 H 06/06/23 05:00 06/06/23 04:00 97.6 F 95 H 20 156/100 H 94 L 06/06/23 03:00 06/05/23 20:00 90 06/06/23 00:00 100 H 06/06/23 00:00 97.5 F L 76 16 155/91 H 94 L 06/06/23 00:52 06/05/23 23:00 06/05/23 21:00 06/05/23 20:00 06/05/23 20:00 97.6 F 91 H 20 158/96 H 92 L 06/05/23 19:00 97.7 F 91 H 20 155/89 H 93 L 06/05/23 18:00 82 94 L 06/05/23 18:52 06/05/23 18:00 98.0 F 75 17 170/88 H 06/05/23 17:35 80 171/96 H 96 06/05/23 15:23 98.1 F 80 18 159/91 H 98 O2 Del Method 06/06/23 08:40 Room Air 06/06/23 08:00 Room Air 06/06/23 08:00 Room Air 06/06/23 06:56 Room Air 06/06/23 05:41 06/06/23 05:00 Room Air 06/06/23 04:00 Room Air 06/06/23 03:00 Room Air 06/05/23 20:00 06/06/23 00:00 06/06/23 00:00 Room Air 06/06/23 00:52 Room Air 06/05/23 23:00 Room Air 06/05/23 21:00 Room Air 06/05/23 20:00 Room Air 06/05/23 20:00 Room Air 06/05/23 19:00 Room Air 06/05/23 18:00 06/05/23 18:52 Room Air 06/05/23 18:00 Room Air 06/05/23 17:35 Room Air 06/05/23 15:23 Room Air Intake and Output 06/05/23 06/06/23 06/06/23 23:59 07:59 15:59 Intake Total 150 / 150 240 / 240 Output Total 0 / 0 0 / 0 0 / 0 Balance 150 / 150 0 / 240 240 / 240 Intake: Intake, Oral Amount 240 / 240 Intake, Total IV Amount 150 / 150 Levofloxacin/D5w 750 mg/150 ml 150 / 150 750 mg In 150 ml @ 100 mls/hr IV ONCE ONE Rx#:[id number] Output: Output, Urine Amount 0 / 0 0 / 0 0 / 0 Other: Number of Unmeasured Voids 1 1 Weight 108.522 kg Patient Weight 06/06/23 23:59 Weight 108.522 kg Laboratory Results - last 24 hr 06/05/23 15:30: WBC 8.2, RBC 5.30, Hgb 15.7, Hct 49.2 H, MCV 92.8, MCH 29.6, MCHC 31.9, RDW 13.2, Plt Count 172, MPV 8.4, Neut % (Auto) 59.1, Lymph % (Auto) 27.8, [place] % (Auto) 7.2, Eos % (Auto) 5.3, Baso % (Auto) 0.7, Neut # (Auto) 4.8, Lymph # (Auto) 2.3, [place] # (Auto) 0.6, Eos # (Auto) 0.4, Baso # (Auto) 0.1, Sodium 142, Potassium 4.2, Chloride 105, Carbon Dioxide 34 H, Anion Gap 7.2, BUN 37 H, Creatinine 1.60 H, Estimated GFR 31 L, Est GFR ( Amer) 38 L, Glucose 102 H, Calcium 9.3, Total Bilirubin 0.5, AST 30, ALT 25, Alkaline Phosphatase 163 H, Troponin I < 0.01, NT-Pro-B Natriuret Pep 182, Total Protein 7.4, Albumin 4.1, Globulin 3.3 H, Albumin/Globulin Ratio 1.2 06/05/23 15:32: Urine Color Yellow, Urine Appearance Clear, Urine pH 6.0, Ur Specific [place] 1.010, Urine Protein Negative, Urine Glucose (UA) Negative, Urine Ketones Negative, Urine Blood Negative, Urine Nitrate Negative, Urine Bilirubin Negative, Urine Urobilinogen 0.2, Ur Leukocyte Esterase Trace, Urine RBC None, Urine WBC Occasional, Ur Squamous Epith Cells 3-5, Urine Bacteria Trace 06/05/23 19:05: Troponin I < 0.01 06/05/23 21:50: Troponin I < 0.01 06/06/23 07:22: WBC 8.3, RBC 5.21, Hgb 16.1, Hct 47.6 H, MCV 91.3, MCH 30.8, MCHC 33.7, RDW 13.2, Plt Count 186, MPV 8.4, Neut % (Auto) 84.1 H, Lymph % (Auto) 13.5, [place] % (Auto) 2.1, Eos % (Auto) 0.1, Baso % (Auto) 0.2, Neut # (Auto) 7.0, Lymph # (Auto) 1.1, [place] # (Auto) 0.2, Eos # (Auto) 0.0, Baso # (Auto) 0.0, Sodium 141, Potassium 4.1, Chloride 107, Carbon Dioxide 26, Anion Gap 12.1, BUN 35 H, Creatinine 1.60 H, Estimated Creat Clear 49, Estimated GFR 31 L, Est GFR ( Amer) 38 L, Glucose 185 H D, Calcium 9.6, Magnesium 2.2, Total Bilirubin 0.5, AST 38 H D, ALT 43 D, Alkaline Phosphatase 153 H, Total Protein 7.6, Albumin 4.3, Globulin 3.3 H, Albumin/Globulin Ratio 1.3 I & O for Labs for Last 24 Hours: Intake & Output 06/03/23 06/04/23 06/05/23 06/06/23 23:59 23:59 23:59 23:59 Intake Total 150 / 150 240 / 240 Output Total 0 / 0 0 / 0 Balance 150 / 150 240 / 240 Weight 127.006 kg 108.522 kg Constitutional: Present no acute distress, obese and chronically ill appearing Head: Present atraumatic and normocephalic ENT: Present normal exam Respiratory: Present normal respiratory effort; Absent rhonchi, wheezes or crackles Cardiac: Present Reg Rate and Rhythm GI: Present normal bowel sounds; Absent tenderness Extremities: Present normal inspection, full ROM and edema (trace) Skin: Present intact and dry; Absent erythema Neuro: Present Grossly Intact, alert, awake and moves all extremities; Absent oriented x 3 Comment:: Strength diminished in right side, 4/5 in upper and lower extremity with ball point splitter in both proximal and distal muscles. Strength 5/5 in left upper and lower extr emity. Word finding difficulty. Assessment and Plan *Assessment and plan (1) TIA (transient ischemic attack): Status: Acute Category: Medical Code(s): G45.9 - Transient cerebral ischemic attack, unspecified (2) Acute UTI: Status: Acute Category: Medical Code(s): N39.0 - Urinary tract infection, site not specified (3) Acute confusion: Status: Acute Category: Medical Code(s): R41.0 - Disorientation, unspecified (4) Intertrigo: Status: Chronic Category: Medical Code(s): L30.4 - Erythema intertrigo (5) Renal insufficiency: Status: Chronic Category: Medical Code(s): N28.9 - Disorder of kidney and ureter, unspecified (6) Hypertension: Status: Chronic Qualifiers: Hypertension type: essential hypertension Qualified Code(s): I10 - Essential (primary) hypertension Category: Medical Code(s): I10 - Essential (primary) hypertension (7) Grade II diastolic dysfunction: Status: Chronic Category: Medical Code(s): I51.9 - Heart disease, unspecified (8) CAD (coronary artery disease): Status: Chronic Qualifiers: Coronary Disease-Associated Artery/Lesion type: [place] artery [place] vs. transplanted heart: [place] heart Associated angina: without angina Qualified Code(s): I25.10 - Atherosclerotic heart disease of [place] coronary artery without angina pectoris Category: Medical Code(s): I25.10 - Atherosclerotic heart disease of [place] coronary artery without angina pectoris (9) CVA (cerebral vascular accident): Status: Chronic Category: Medical Code(s): I63.9 - Cerebral infarction, unspecified Plan Ms. Harris is a 78-year-old female with multiple comorbidities who presented to the ER from her nursing facility for acute altered mental status and right- sided weakness. Workup in the ER with negative CT. Would benefit from MRI. UA abnormal concerning for UTI. Noted to have some recurrence of deficits on right side today with weakness and word finding difficulty. Discussion with family, word finding difficulty has been going on for over a month. Denies nausea or vomiting. Stable on room air. Continues to require inpatient management. MRI pending for the morning. Continue IV antibiotics for UTI. Problems addressed as follows: Dysarthria Suspected TIA/CVA Right-sided weakness Mild confusion History of dementia -CT with no acute stroke. MRI ordered, will be obtained Wednesday. Increased weakness on right side today, still having word finding difficulty -Medically managing with aspirin 81 mg daily, Plavix 75 mg daily, high intensity statin Lipitor 40 mg nightly. -PT, OT, speech consults placed. -Allow for permissive hypertension. Goal blood pressure less than 180/100 -Resume metoprolol 50 mg daily Concern for UTI -UA grossly abnormal. White cell count normal 8.2, no signs of anemia. Electrolytes stable with normal sodium at 142, potassium 4.2. -Initiated on Macrobid in the ER with 1 dose. Will transition to Levaquin, renally dosed pending urine culture. CKD: Creatinine 1.6 BUN 35. Appears at her baseline. Caution with nephrotoxins. Repeat CBC, CMP, magnesium ordered for the morning Gout: Hold febuxostat as it is not on her formulary. No acute gout flares at this time. Intertrigo: Present under breasts and abdomen, continue nystatin powder Hypertension Hyperlipidemia -Metoprolol and statin as above. CODE STATUS unclear, full code pending discussion with family. DVT prophylaxis with heparin Regular diet
--- NOTE | 2023-06-06 16:50 | HMH.PTEV ---
Physical Therapy Evaluation Rehab PT IP Evaluation Start: 06/05/23 17:23 Freq: ONCE Status: Active Protocol: Document 06/06/23 16:42 BUFFY (Rec: 06/06/23 16:50 BUFFY [id number]) Subjective/History History History Patient is a 78-year-old female admitted to [facility] 06/05/23 with a history of hypertension, hyperlipidemia, CAD, diastolic dysfunction, dementia, CKD. She presented to the ER from [facility] because of right- sided weakness and some confusion. Patient reports and history from nursing facility states that 06/05/23 at approximately 2 PM she developed right-sided weakness , difficulty finding words, and some confusion. Patient was sent via EMS to the ER for further management. On initial evaluation, had right- sided weakness and dysarthria. During eval in the ER, symptoms gradually showed improvement. CT of head was obtained without contrast due to contrast allergy that did not show any acute stroke. Labs relatively normal with no leukocytosis, stable kidney function and electrolytes. UA concerning for UTI however. Patient is on aspirin and Plavix but not a statin at nursing facility. She has been staying in the nursing facility for approx 1 month per family report. Previously was living at home by herself , requiring family for assistance with all ADL's/IADL 's. Denies any chest pain, shortness of breath, nausea, vomiting, abdominal pain or diarrhea. Has been receiving therapy services at the nursing facility. Medicine consulted for admission for further management of TIA and therapy consults. On evaluation, neuroexam shows no focal deficits unilaterally. Answers tangentially to questions. Able to speak in complete sentences but answers are not necessarily appropriate with questions asked. Appears to be pleasantly confused. Subjective Subjective Patient A&O to first name only upon PT evaluation. New diagnosis of cancer in past 12 No months? Rehab PT IP Eval Objective Appearance Patient Behavior Confused Patient Orientation Person Difficulty following instructions moderate Speech Pattern Aphasic Ambulation Patient Able to Ambulate No Balance Ability to Arise Unable Sitting Balance Leans or slides in chair Standing Balance Unsteady Dynamic Sitting Balance Ability Fair Dynamic Standing Balance Ability Poor Transfers Bed Transfer Ability Moderate x 1 (50% assist) Sit to Stand Bed Transfer Ability Maximum x 2 (75% assist) ROM RUE PT ROM Status ABN Abnormal ROM Comment Patient demonstrates R sided neglect RLE PT ROM Status ABN Abnormal ROM Comment Patient demonstrates R sided neglect MMT RUE PT MMT ABN Abnormal MMT Grade 2+/5 grossly RLE PT MMT ABN Abnormal MMT Grade 2+/5 grossly Rehab PT IP prob,goals,plan Problems Date of Evaluation: 06/06/23 PT IP Problems Bed Mobility,Transfers,Gait, Balance,Self care,Safety Rehab Potential Rehab Potential Fair Plan PT Intervention Plan Bed Mobility,Transfers,Gait, Balance,Self care,Safety, Therapeutic Exercise PT Plan Frequency Daily Duration LOS Discharge Goals Bed Transfer Ability Minimal x 2 (25% assist) Sit to Stand Chair Transfer Ability Minimal x 2 (25% assist) Ambulation Assistive Device Rolling Walker Ambulation Distance (feet) 10 Discharge Plan PT Discharge Plan PT suggests that patient is a good candidate to DC back to SNF to continue rehab once found medically stable by MD. Eval Complexity Eval Charge Codes 92853 - High Complexity PHYSICIAN CERTIFICATION: I certify the specified therapy services for Kay Harris are required, authorized, and reviewed every 30 days.
--- NOTE | 2023-06-06 18:25 | PC.NURSE ---
Patient was slightly confused during the shift but pleasant. VS stable and patient remained on room air. Right sided weakness noted in arm and leg. No other changes noted
[2023-06-06] MEDS: CARVEDILOL 12.5MG TABLET 12.5 MG PO (20:13)
[2023-06-06] MEDS: ATORVASTATIN 40MG TABLET 40 MG PO (20:13)
[2023-06-07] VITALS (8 sets, daily range): BP systolic 139–178; BP diastolic 72–87; PULSE 60–73; RESP 16–18; TEMP 36.4–36.7; O2SAT 90–95; BMI 36.3
--- NOTE | 2023-06-07 05:28 | PC.NURSE ---
Pt is alert and oriented. Hard to find words, but with time she can get out what she needs. Pt pulled out IV, placed new one in R forearm. Pt has been incontinent, purewick in place. NIH score of 5. Right side extremities show some weakness, leg is worse than arm. Remains on room air, lung sounds clear. Call light in reach.
[2023-06-07 06:28] LABS: Basophils % 0.3 % (0.1-2.0); Chloride 108 mmol/L (98-107); Eosinophils # 0.1 K/mm3 (0.0-0.4); Eosinophils % 1.2 % (0.1-12.0); Hematocrit 46.8 % (37.0-47.0); Hemoglobin 15.3 g/dL (12.2-16.2); Lymphocytes # 2.6 K/mm3 (0.7-4.5); Lymphocytes % 23.6 % (10-50); Mean Corpuscular HGB Conc 32.7 g/dL (31.8-35.4); Mean Corpuscular Hemoglobin 30.2 pg (27.0-31.2); Mean Corpuscular Volume 92.2 fl (81-99); Mean Platelet Volume 8.6 fl (7.4-10.4); Monocytes # 0.6 K/mm3 (0.1-1.0); Monocytes % 5.6 % (1.7-9.3); Neutrophils # 7.5 K/mm3 (1.8-7.8); Neutrophils % 69.3 % (37.0-80.0); Platelet Count 168 K/mm3 (142-424); Red Blood Count 5.08 M/mm3 (4.20-5.40); Red Cell Distribution Width 13.1 % (11.5-17.5); White Blood Count 10.8 K/mm3 (4.8-10.8)
[2023-06-07 06:29] LABS: Potassium 3.6 mmoL/L (3.5-5.1); Sodium 141 mmol/L (136-145)
[2023-06-07 06:31] LABS: Alanine Aminotransferase 25 U/L (12-78); Aspartate Amino Transferase 31 U/L (14-36); Blood Urea Nitrogen 49 mg/dl (7-17); Creatinine Clearance Estimated 46 mL/min (50-200); Estimated Glomerular Filt Rate 29 ml/min (>60); GFR (African American) 35 ML/MIN (>60)
[2023-06-07 06:32] LABS: Albumin Level 3.7 g/dl (3.5-5.0); Albumin/Globulin Ratio 1.3 (1.1-1.8); Alkaline Phosphatase 129 U/L (38-126); Anion Gap 7.6 mEq/L (5-15); Bilirubin,Total 0.5 mg/dl (0.2-1.3); Carbon Dioxide 29 mmol/L (22.0-30.0); Globulin 2.9 g/dL (1.3-3.2); Glucose 120 mg/dl (74-100); Magnesium 2.3 mg/dl (1.6-2.3); Total Protein,Serum 6.6 g/dl (6.3-8.2)
--- NOTE | 2023-06-07 07:22 | P.DS_ITS ---
General Admission date:: 06/05/23 Discharge date: 06/07/23 HPI HPI HPI: Ms. Harris is a 78-year-old female history of hypertension, hyperlipidemia, CAD, diastolic dysfunction, dementia, CKD who presented to the ER from [facility] because of right-sided weakness and some confusion. Patient reports and history from [facility] states that earlier today at approximately 2 PM she developed right-sided weakness, difficulty finding words, and some confusion. Patient was sent via EMS to the ER for further management. On initial evaluation, had right-sided weakness and dysarthria. During eval in the ER, symptoms gradually showed improvement. CT of head was obtained without contrast due to contrast allergy that did not show any acute stroke. Labs relatively normal with no leukocytosis, stable kidney function and electrolytes. UA concerning for UTI however. Patient is on aspirin and Pl[facility] Unsure how long she has been at the nursing facilit [facility]. Previously was living at home by herself. Denies any chest pain, shortness of breath, nausea, vomiting, abdominal pain or diarrhea. [facility] Medicine consulted for admission for further management of TIA and therapy consults. On evaluation, neuroexam shows no focal deficits unilaterally. Answers tangentially to questions. Able to speak in complete sentences but answers are not necessarily appropriate with questions asked. Appears to be pleasantly confused. Hospital Course Hospital Course Hospital Course: Ms. Harris is a 78-year-old female with multiple comorbidities who presented to the ER from her nursing facility for acute altered mental status and right- sided weakness. Workup in the ER with negative CT. Would benefit from MRI. UA abnormal concerning for UTI. Noted to have some recurrence of deficits on right side today with weakness and word finding difficulty. Discussion with family, word finding difficulty has been going on for over a month. Denies nausea or vomiting. Stable on room air. Continues to require inpatient management. MRI pending for the morning. Continue IV antibiotics for UTI. Problems addressed as follows: Dysarthria Suspected TIA/CVA Right-sided weakness Mild confusion History of dementia -CT with no acute stroke. MRI ordered, will be obtained Wednesday. Increased weakness on right side today, still having word finding difficulty -Medically managing with aspirin 81 mg daily, Plavix 75 mg daily, high intensity statin Lipitor 40 mg nightly. -PT, OT, speech consults placed. -Allow for permissive hypertension. Goal blood pressure less than 180/100 -Resume metoprolol 50 mg daily - MRI results: Concern for UTI -UA grossly abnormal. White cell count normal 8.2, no signs of anemia. Electrolytes stable with normal sodium at 142, potassium 4.2. -Initiated on Macrobid in the ER with 1 dose. Will transition to Levaquin, renally dosed pending urine culture. CKD: Creatinine 1.6 BUN 35. Appears at her baseline. Caution with nephrotoxins. Repeat CBC, CMP, magnesium ordered for the morning Gout: Hold febuxostat as it is not on her formulary. No acute gout flares at this time. Intertrigo: Present under breasts and abdomen, continue nystatin powder Hypertension Hyperlipidemia -Metoprolol and statin as above. Exam Data for Last 24 hours Vital signs and Labs for Last 24 Hours: Temp Pulse Resp BP Pulse Ox O2 Del Method 98.1 F 70 18 150/82 H 94 L Room Air 06/07/23 04:00 06/07/23 05:59 06/07/23 04:00 06/07/23 04:00 06/07/23 04:00 06/07/23 06:50 Laboratory Results - last 24 hr 06/06/23 07:22: WBC 8.3, RBC 5.21, Hgb 16.1, Hct 47.6 H, MCV 91.3, MCH 30.8, MCHC 33.7, RDW 13.2, Plt Count 186, MPV 8.4, Neut % (Auto) 84.1 H, Lymph % (Auto) 13.5, Blount % (Auto) 2.1, Eos % (Auto) 0.1, Baso % (Auto) 0.2, Neut # (Auto) 7.0, Lymph # (Auto) 1.1, Blount # (Auto) 0.2, Eos # (Auto) 0.0, Baso # (Auto) 0.0, Sodium 141, Potassium 4.1, Chloride 107, Carbon Dioxide 26, Anion Gap 12.1, BUN 35 H, Creatinine 1.60 H, Estimated Creat Clear 49, Estimated GFR 31 L, Est GFR ( Amer) 38 L, Glucose 185 H D, Calcium 9.6, Magnesium 2.2, Total Bilirubin 0.5, AST 38 H D, ALT 43 D, Alkaline Phosphatase 153 H, Total Protein 7.6, Albumin 4.3, Globulin 3.3 H, Albumin/Globulin Ratio 1.3 06/07/23 05:20: WBC 10.8 D, RBC 5.08, Hgb 15.3, Hct 46.8, MCV 92.2, MCH 30.2, MCHC 32.7, RDW 13.1, Plt Count 168, MPV 8.6, Neut % (Auto) 69.3, Lymph % (Auto) 23.6, Blount % (Auto) 5.6, Eos % (Auto) 1.2, Baso % (Auto) 0.3, Neut # (Auto) 7.5, Lymph # (Auto) 2.6, Blount # (Auto) 0.6, Eos # (Auto) 0.1, Baso # (Auto) 0.0, Sodium 141, Potassium 3.6, Chloride 108 H, Carbon Dioxide 29, Anion Gap 7.6, BUN 49 H D, Creatinine 1.70 H, Estimated Creat Clear 46, Estimated GFR 29 L, Est GFR ( Amer) 35 L, Glucose 120 H D, Calcium 9.0, Magnesium 2.3, Total Bilirubin 0.5, AST 31, ALT 25 D, Alkaline Phosphatase 129 H, Total Protein 6.6, Albumin 3.7 D, Globulin 2.9, Albumin/Globulin Ratio 1.3 I & O for Last 24 hours: Intake & Output 06/04/23 06/05/23 06/06/23 06/07/23 23:59 23:59 23:59 23:59 Intake Total 150 / 150 710 / 710 Output Total 0 / 0 300 / 300 550 / 550 Balance 150 / 150 410 / 410 -550 / -550 Weight 127.006 kg 108.522 kg 108.862 kg Constitutional Constitutional: no acute distress, obese, chronically ill appearing and cooperative *Routine HEENT Exam Head: Present normocephalic Eye: Present EOMI and PERRL ENT: Present mucous membranes moist *Routine Neck Exam Neck: Present supple and full ROM *Routine Respiratory Exam Respiratory: Present normal respiratory effort; Absent respiratory distress, rhonchi, wheezes or crackles *Routine Cardiovascular Exam Cardiovascular: Present RRR, Normal S1 and Normal S2; Absent murmur, gallop or rubs *Routine Abdominal Exam Abdominal: Present soft and normoactive bowel sounds; Absent tenderness *Routine Rectal Exam Patient deferred: visual exam *Routine Exam Patient deferred: external exam *Routine Extremities Exam Extremities: Present edema (trace BLE) and normal capillary refill; Absent cyanosis or clubbing *Routine Skin Exam Skin: Present intact Comments: chronic stasis changes in RLE *Routine Neurological Exam Neurological: Present alert and moving all extremities; Absent altered mental status Comments: Oriented to self. Pleasantly confused. Difficulty with word finding at baseline. Strength in right upper and lower extremity 4/5, left upper and lower extremity 5/5. Routine Psychiatric Exam Psychiatric: Present normal affect and cooperative Results Data Completed and Pending Labs on day of discharge: Labs from last 24 hours 06/07/23 06/06/23 05:20 07:22 WBC 10.8 D 8.3 RBC 5.08 5.21 Hgb 15.3 16.1 Hct 46.8 47.6 H MCV 92.2 91.3 MCH 30.2 30.8 MCHC 32.7 33.7 RDW 13.1 13.2 Plt Count 168 186 MPV 8.6 8.4 Neut % (Auto) 69.3 84.1 H Lymph % (Auto) 23.6 13.5 Blount % (Auto) 5.6 2.1 Eos % (Auto) 1.2 0.1 Baso % (Auto) 0.3 0.2 Neut # (Auto) 7.5 7.0 Lymph # (Auto) 2.6 1.1 Blount # (Auto) 0.6 0.2 Eos # (Auto) 0.1 0.0 Baso # (Auto) 0.0 0.0 Sodium 141 141 Potassium 3.6 4.1 Chloride 108 H 107 Carbon Dioxide 29 26 Anion Gap 7.6 12.1 BUN 49 H D 35 H Creatinine 1.70 H 1.60 H Estimated Creat Clear 46 49 Estimated GFR 29 L 31 L Est GFR ( Amer) 35 L 38 L Glucose 120 H D 185 H D Calcium 9.0 9.6 Magnesium 2.3 2.2 Total Bilirubin 0.5 0.5 AST 31 38 H D ALT 25 D 43 D Alkaline Phosphatase 129 H 153 H Total Protein 6.6 7.6 Albumin 3.7 D 4.3 Globulin 2.9 3.3 H Albumin/Globulin Ratio 1.3 1.3 DS: Diagnosis Discharge Diagnosis (1) TIA (transient ischemic attack): Status: Acute Code(s): G45.9 - Transient cerebral ischemic attack, unspecified (2) Acute UTI: Status: Acute Code(s): N39.0 - Urinary tract infection, site not specified (3) Acute confusion: Status: Acute Code(s): R41.0 - Disorientation, unspecified (4) Intertrigo: Status: Chronic Code(s): L30.4 - Erythema intertrigo (5) Renal insufficiency: Status: Chronic Code(s): N28.9 - Disorder of kidney and ureter, unspecified (6) Hypertension: Status: Chronic Code(s): I10 - Essential (primary) hypertension Qualifiers: Hypertension type: essential hypertension Qualified Code(s): I10 - Essential (primary) hypertension (7) Grade II diastolic dysfunction: Status: Chronic Code(s): I51.9 - Heart disease, unspecified (8) CAD (coronary artery disease): Status: Chronic Code(s): I25.10 - Atherosclerotic heart disease of [place] coronary artery without angina pectoris Qualifiers: Associated angina: without angina Coronary Disease-Associated Artery/Lesion type: [place] artery [place] vs. transplanted heart: [place] heart Qualified Code(s): I25.10 - Atherosclerotic heart disease of [place] coronary artery without angina pectoris (9) CVA (cerebral vascular accident): Status: Acute Code(s): I63.9 - Cerebral infarction, unspecified Meds Home Medications and Allergies Home Medications Medication Instructions Recorded Confirmed Type febuxostat 80 mg tablet 80 mg PO DAILY gout 12/21/22 06/05/23 History docusate sodium 100 mg tablet 100 mg PO DAILY 06/05/23 06/05/23 History furosemide 20 mg tablet 20 mg PO DAILY Fluid 06/05/23 06/05/23 History aspirin 81 mg tablet,delayed 81 mg PO DAILY 30 days #30 tabs 06/07/23 Rx release atorvastatin 40 mg tablet 40 mg PO HS 30 days #30 tabs 06/07/23 Rx clopidogrel 75 mg tablet 75 mg PO DAILY 30 days #30 tabs 06/07/23 Rx amlodipine 5 mg tablet 5 mg PO DAILY 30 days #30 tabs 06/08/23 Rx carvedilol 12.5 mg tablet 12.5 mg PO BID 30 days #60 tabs 06/08/23 Rx New Prescriptions to Start Prescriptions: amlodipine Charlie Ingram aspirin Sahil Urias atorvastatin Sahil Urias carvedilol Charlie Ingram clopidogrel Sahil Urias Allergies Allergy/AdvReac Type Severity Reaction Status Date / Time ceftriaxone [From Rocephin] Allergy Severe Hives Verified 04/08/21 08:16 iodine Allergy Unknown Verified 04/17/20 12:14 NSAIDS (Non-Steroidal Allergy Unknown Verified 04/17/20 12:14 Anti-Inflamma Discharge Plan Disposition Patient Disposition: Xfer SNF Condition: Fair Discharge Order Discharge Orders: Discharge Order (Routine); Ordered 06/08/23 Ordered By: Charlie Ingram Follow up Plan Follow up with: Provider,Referral, MD [Primary Care Provider] - 2 weeks Prescriptions/Medication Reconciliation: New atorvastatin 40 mg Tablet 40 mg PO HS 30 Days Qty: 30 0RF clopidogrel 75 mg Tablet 75 mg PO DAILY 30 Days Qty: 30 0RF aspirin 81 mg Tablet,Delayed Release (Dr/Ec) 81 mg PO DAILY 30 Days Qty: 30 0RF carvedilol 12.5 mg Tablet 12.5 mg PO BID 30 Days Qty: 60 0RF amlodipine 5 mg Tablet 5 mg PO DAILY 30 Days Qty: 30 0RF Continued febuxostat 80 mg Tablet 80 mg PO DAILY furosemide 20 mg Tablet 20 mg PO DAILY docusate sodium 100 mg Tablet 100 mg PO DAILY Problem Reconciliation Problems Reviewed?: Yes Patient Discharge Instructions ACTIVITY: Continue current activity and Up with assistance DIET: continue same diet Patient Instructions: DI for Transient Ischemic Attack, DI for Urinary Tract Infection (UTI) Providers Primary Care Provider: Provider,Referral Admit Provider: Sahil Urias Attending Provider: Sahil Urias
--- NOTE | 2023-06-07 07:51 | SW/DCPLANNER ---
Addendum entered by Gillian Rivera 06/08/23 09:05: Per Dr Urias during meeting w/ patient and her children the plan is for her to return to [facility] level of care. Family agreed they would like to see how patient does w/ rehab: if no progress they would like to proceed w/ Hospice for this patient. I have updated Pretty w/ [facility] regarding discharge plans. Addendum entered by Gillian Rivera 06/07/23 11:45: Patient's family will meet w/ Dr Urias at 5PM. Original Note: This patient currently resides at [facility] level of care. I will continue to follow up w/ Pretty at [facility] until patient is medically stable for discharge. Discharge date is unknown at this time. Updated patient information has been faxed.
[2023-06-07] MEDS: FUROSEMIDE 20MG TABLET 20 MG PO (08:23)
[2023-06-07] MEDS: DOCUSATE SODIUM 100 MG CAPSULE PO (08:23)
[2023-06-07] MEDS: ASPIRIN EC 81MG TABLET 81 MG PO (08:23)
[2023-06-07] MEDS: CLOPIDOGREL 75MG TAB 75 MG PO (08:23)
[2023-06-07] MEDS: HEPARIN SODIUM 5,000 UNIT/ML VIAL 5000 UNIT SQ ×2 (08:23→20:53)
[2023-06-07] MEDS: NYSTATIN TOPICAL POWDER 30GM TP ×4 (08:24→20:53)
[2023-06-07] MEDS: POTASSIUM CHLORIDE 20MEQ TAB 40 MEQ PO ×2 (08:27→20:53)
[2023-06-07] MEDS: CARVEDILOL 12.5MG TABLET 12.5 MG PO ×2 (08:28→20:53)
--- NOTE | 2023-06-07 09:02 | HMH.SLAPHASI ---
Speech & Language Evaluation Speech/Language Aphasia Evaluation Start: 06/07/23 08:47 Freq: once Status: Complete Protocol: Document 06/07/23 08:47 ISABEL (Rec: 06/07/23 09:02 ISABEL [id number]) Aphasia Assessment/Goals/Plan Assessment Date of Evaluation: 06/07/23 Evaluation Type Initial Certification Assessment/Problems improving dysarthria post TIA vs stroke, eval/tx per MD order Does Patient Qualify for Service Yes Qualify/Failure Comment Based on clinical observations made throughout cognitive- linguistic and speech/langauge assessment, pt would benefit from skilled speech therapy services to address expressive aphasia, apraxia of speech, and dysarthria in order to improve functional communication across multiple settings and environments. Plan Pt will be seen # times/week 3 for # weeks 4 Anticipate reaching STG in # weeks 2 Anticipate reaching LTG in # weeks 4 Pt/Guardian verbally ack understanding Yes of dx/prognosis/goals G -code Required No STG-Verbal Expressive Language Automatic Speech 70 Sentence Completion 65 Repetitive Abilities 60 STG-Intell/Buccal/Labial Strength Intelligibility 70 #Intelligibility Drills Performed/Sesson 10 Labial Strength 70 # Times Exercises Perf/Session 10 Buccal Strength 70 # Times Exercises Perf/Session 10 Fpc Goals Increase oral motor tone to improve Yes: 70 intelligibility. Increase verbal expression skills to Yes: 70 communicate w/family & friends. Education Instructions provided Discussed results of assessment, POC, and goals with patient, nurisng, and care management all of which expressed understanding. Pt/Caregiver Able to Recall Information Able to recall/restate Reinforcement needed No Speech & Language HPI History Present Illness Description of Patient Problem [employer] pulled following information from H&P dated , Ms. Harris is a 78- year-old female history of hypertension, hyperlipidemia, CAD, diastolic dysfunction, dementia, CKD who presented to the ER from [facility] because of right- sided weakness and some confusion. Patient reports and history from nursing facility states that earlier today at approximately 2 PM she developed right-sided weakness, difficulty finding words, and some confusion. Patient was sent via EMS to the ER for further management. On initial evaluation, had right-sided weakness and dysarthria. During eval in the ER, symptoms gradually showed improvement. CT of head was obtained without contrast due to contrast allergy that did not show any acute stroke. On evaluation, neuroexam shows no focal deficits unilaterally. Answers tangentially to questions. Able to speak in complete sentences but answers are not necessarily appropriate with questions asked. Appears to be pleasantly confused. Rehab Services Assessed Speech therapy Language Primary Language [place] Aphasia Evaluations Communication Speech Intelligibility Pt is approximately 70% intelligible when producing speech; she presents as nonfluent aphasia and has difficulty with word finding, but when attempts are made to communicate she is mainly intelligible when context is known. AC Comment Did not assess 2' severity of language deficits RC Comment Did not assess 2' severity of language deficits Verbal Expressive Language No: Automatic Speech Completing Sentences Repetition Abilities Word Level Naming KANDY Comment Pt was observed to have a difficult time imitating CV/VC words, as well as phonemes in isolation; she required max to 1:1 multimodalic prompts/ cues to complete automatic speech and naming tasks. She was observed to grope on words and then was unable to further her attempt 2' apraxia and expressive aphasia. Additional Evaluation(s) Additional Tests [employer] attempted to complete DKR drills with pt and she was unable to imitate. She was able to inconsistently imitate oral motor exercises. She would benefit from skilled speech therapy services to address deficits in expressive /receptive language, oral motor skills and apraxia of speech, and dysarthria. PHYSICIAN CERTIFICATION: I certify the specified therapy services for Kay Harris are required, authorized, and reviewed every 30 days.
--- NOTE | 2023-06-07 09:30 | MR_ITS ---
FINAL REPORT TECHNIQUE: Multiplanar and multisequence imaging of the brain was obtained without contrast. CLINICAL HISTORY: TIA VS STROKE COMPARISON: 04/07/2021 FINDINGS: There is global atrophy. There is a focus of encephalomalacia in the left middle cerebral artery territory which has progressed since the prior exam of 2020. There is a new cortical T2 abnormality in the medial posterior left frontal and anterior left parietal lobes, at the vertex. This area of abnormal signal does display restricted diffusion, consistent with acute ischemia. There is no mass effect or midline shift. Small foci of periventricular and subcortical white matter are nonspecific and consistent with ischemic/gliotic microvascular disease. The ventricles are symmetric without hydrocephalus. The cerebellum and brainstem have an unremarkable appearance. Soft tissues are without acute abnormality. IMPRESSION: New cortical T2 abnormal signal in the medial posterior left frontal and anterior left parietal lobes at the level of the vertex. There is restricted diffusion in this area, consistent with acute ischemia. Nonspecific T2 abnormality within the periventricular and subcortical white matter as well as foci of encephalomalacia, most consistent in this age group with ischemic microvascular/gliotic disease. These changes have progressed since the prior MRI of 2020. Reviewed, Interpreted and Dictated by My Trevino MD Transcribed by Makenzie Oseguera Authenticated and [facility]
--- NOTE | 2023-06-07 10:16 | HMH.OTEV ---
OT Inpatient Evaluation Rehab OT IP Evaluation Start: 06/05/23 17:22 Freq: ONCE Status: Active Protocol: Document 06/07/23 09:58 NENO (Rec: 06/07/23 10:16 NENO [id number]) Rehab OT IP Assessment Subjective History Ms. Harris is a 78-year-old female history of hypertension, hyperlipidemia, CAD, diastolic dysfunction, dementia, CKD who presented to the ER from [facility] because of right- sided weakness and some confusion. Patient reports and history from nursing facility states that earlier today at approximately 2 PM she developed right-sided weakness, difficulty finding words, and some confusion. Patient was sent via EMS to the ER for further management. On initial evaluation, had right-sided weakness and dysarthria. During eval in the ER, symptoms gradually showed improvement. CT of head was obtained without contrast due to contrast allergy that did not show any acute stroke. Labs relatively normal with no leukocytosis, stable kidney function and electrolytes. UA concerning for UTI however. Patient is on aspirin and Plavix but not a statin at nursing facility. Unsure how long she has been at the nursing facility. Previously was living at home by herself. Denies any chest pain, shortness of breath, nausea, vomiting, abdominal pain or diarrhea. Has been receiving therapy services at the nursing facility. Medicine consulted for admission for further management of TIA and therapy consults. On evaluation, neuroexam shows no focal deficits unilaterally. Answers tangentially to questions. Able to speak in complete sentences but answers are not necessarily appropriate with questions asked. Appears to be pleasantly confused. Patient is a [facility] a local [facility]. Patient has been at [facility] for the past 3- 4 weeks. Patient was able to ambulate with usage RW and transfers with Min A ~2 weeks ago. hx of falling. Subjective Yeah. Instructed Patient on proper hand and foot placement to participate in bed mobility and transfers task while sitting upright at EOB. Patient required Max A for all bed mobility and Mod A for sit->stand transfers. Patient required max verbal cueing for attention to task and redirection. Left Patient sitting upright in chair with needs met at end of session. Objective Patient Orientation Person,Place,Name Right Upper Extremity Gross ROM WFL Left Upper Extremity Gross ROM WFL Bed Mobility bed mobility - supine/sit Assist Level Maximum x 1 (75% assist) Transfer Training Sit/Stand/Step Transfer Assist Level Moderate x 1 (50% assist) Chair Transfer Ability Moderate x 1 (50% assist) Chair Transfer Assistive Devices Rolling Walker Rehab OT IP prob,goals,plan Problems Date of Evaluation: 06/07/23 OT IP Problems Bed Mobility,Transfers,Balance ,Self care,Safety Rehab Potential Rehab Potential Good Equipment Needs Assistive Devices Rolling / Wheeled Walker Plan OT Plan Frequency Daily Duration LOS Discharge Goals Bed Mobility Ability Assistance x1 Sit to Stand Chair Transfer Ability Minimal x 2 (25% assist) Discharge Plan OT Discharge Plan Recommend Patient to return to SNF after medical d/c. Patient to continue skilled OT IP services while here at [facility] . Eval Complexity Eval Charge Codes 59266 - Low Complexity PHYSICIAN CERTIFICATION: I certify the specified therapy services for Kay Harris are required, authorized, and reviewed every 30 days.
[2023-06-07] MEDS: AMLODIPINE 5MG TABLET 5 MG PO (10:38)
[2023-06-07] MEDS: LEVOFLOXACIN/D5W 750 MG/150 ML 750 MG/150 ML PIGGYBACK 100 MG IV (10:38)
--- NOTE | 2023-06-07 12:29 | P.PN_ITS ---
Subjective *Date: 06/07/23 *Time: 13:13 Interval history: Fatigued this morning, persistent findings on exam with right-sided weakness and word finding difficulty. No nausea or vomiting. Stable on room air. Afebrile. Blood pressure 150/82 this morning exam. Medical Exam Vital signs and Labs for Last 24 Hours: Vital Signs Temp Pulse Pulse Resp BP Pulse Ox O2 Del Method 06/07/23 11:00 Room Air 06/07/23 08:00 Room Air 06/07/23 08:00 70 06/07/23 08:36 Room Air 06/07/23 08:00 97.6 F 67 16 171/76 H 92 L Room Air 06/07/23 06:50 Room Air 06/07/23 05:59 70 06/07/23 05:00 Room Air 06/07/23 04:00 98.1 F 68 18 150/82 H 94 L Room Air 06/07/23 03:00 Room Air 06/07/23 02:22 60 06/06/23 20:15 60 06/07/23 00:54 Room Air 06/07/23 00:00 97.9 F 73 18 139/75 90 L Room Air 06/06/23 23:00 Room Air 06/06/23 20:00 98.2 F 74 18 167/137 H 94 L Room Air 06/06/23 21:00 Room Air 06/06/23 18:32 Room Air 06/06/23 17:00 Room Air 06/06/23 16:00 80 06/06/23 16:00 97.5 F L 77 18 193/96 H 95 Room Air 06/06/23 15:00 Room Air 06/06/23 13:05 Room Air Intake and Output 06/06/23 06/07/23 06/07/23 23:59 07:59 15:59 Intake Total 270 / 710 200 / 200 Output Total 300 / 300 550 / 675 125 / 675 Balance -30 / 410 -550 / -475 75 / -475 Intake: Intake, Oral Amount 270 / 710 200 / 200 Output: Output, Urine Amount 300 / 300 550 / 675 125 / 675 Other: Number of Unmeasured Voids 1 0 0 Number of Bowel Movements 0 Weight 108.862 kg Patient Weight 06/07/23 23:59 Weight 108.862 kg Laboratory Results - last 24 hr 06/07/23 05:20: WBC 10.8 D, RBC 5.08, Hgb 15.3, Hct 46.8, MCV 92.2, MCH 30.2, MCHC 32.7, RDW 13.1, Plt Count 168, MPV 8.6, Neut % (Auto) 69.3, Lymph % (Auto) 23.6, [place] % (Auto) 5.6, Eos % (Auto) 1.2, Baso % (Auto) 0.3, Neut # (Auto) 7.5, Lymph # (Auto) 2.6, [place] # (Auto) 0.6, Eos # (Auto) 0.1, Baso # (Auto) 0.0, Sodium 141, Potassium 3.6, Chloride 108 H, Carbon Dioxide 29, Anion Gap 7.6, BUN 49 H D, Creatinine 1.70 H, Estimated Creat Clear 46, Estimated GFR 29 L, Est GFR ( Amer) 35 L, Glucose 120 H D, Calcium 9.0, Magnesium 2.3, Total Bilirubin 0.5, AST 31, ALT 25 D, Alkaline Phosphatase 129 H, Total Protein 6.6, Albumin 3.7 D, Globulin 2.9, Albumin/Globulin Ratio 1.3 I & O for Labs for Last 24 Hours: Intake & Output 06/04/23 06/05/23 06/06/23 06/07/23 23:59 23:59 23:59 23:59 Intake Total 150 / 150 710 / 710 200 / 200 Output Total 0 / 0 300 / 300 675 / 675 Balance 150 / 150 410 / 410 -475 / -475 Weight 127.006 kg 108.522 kg 108.862 kg Constitutional: Present no acute distress, obese and chronically ill appearing Head: Present atraumatic and normocephalic ENT: Present normal exam Respiratory: Present normal respiratory effort; Absent rhonchi, wheezes or crackles Cardiac: Present Reg Rate and Rhythm GI: Present normal bowel sounds; Absent tenderness Extremities: Present normal inspection, full ROM and edema (trace) Skin: Present intact and dry; Absent erythema Neuro: Present Grossly Intact, alert, awake and moves all extremities; Absent oriented x 3 Comment:: Strength diminished in right side, 4/5 in upper and lower 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 Strength 5/5 in left upper and lower extremity. Word finding difficulty. Assessment and Plan *Assessment and plan (1) CVA (cerebral vascular accident): Status: Acute Qualifiers: CVA mechanism: other Qualified Code(s): I63.89 - Other cerebral infarction Category: Medical Code(s): I63.9 - Cerebral infarction, unspecified (2) Acute UTI: Status: Acute Category: Medical Code(s): N39.0 - Urinary tract infection, site not specified (3) Acute confusion: Status: Acute Category: Medical Code(s): R41.0 - Disorientation, unspecified (4) Intertrigo: Status: Chronic Category: Medical Code(s): L30.4 - Erythema intertrigo (5) Renal insufficiency: Status: Chronic Category: Medical Code(s): N28.9 - Disorder of kidney and ureter, unspecified (6) Hypertension: Status: Chronic Qualifiers: Hypertension type: essential hypertension Qualified Code(s): I10 - Essential (primary) hypertension Category: Medical Code(s): I10 - Essential (primary) hypertension (7) Grade II diastolic dysfunction: Status: Chronic Category: Medical Code(s): I51.9 - Heart disease, unspecified (8) CAD (coronary artery disease): Status: Chronic Qualifiers: Coronary Disease-Associated Artery/Lesion type: [place] artery [place] vs. transplanted heart: [place] heart Associated angina: without angina Qualified Code(s): I25.10 - Atherosclerotic heart disease of [place] coronary artery without angina pectoris Category: Medical Code(s): I25.10 - Atherosclerotic heart disease of [place] coronary artery without angina pectoris Plan Ms. Harris is a 78-year-old female with multiple comorbidities who presented to the ER from her nursing facility for acute altered mental status and right- sided weakness. Workup in the ER with negative CT. Would benefit from MRI. UA abnormal concerning for UTI. Noted to have some recurrence of deficits on right side today with weakness and word finding difficulty. Discussion with family, word finding difficulty has been going on for over a month. Denies nausea or vomiting. Stable on room air. MRI obtained today, still awaiting formal read but preliminary results do show left-sided cerebral changes consistent with stroke. Matches with her current deficits. Therapy evaluating today. Continues to require inpatient management. Anticipate discharge tomorrow. Problems addressed as follows: Dysarthria Stroke Right-sided weakness Mild confusion History of dementia -CT with no acute stroke. MRI ordered, formal read still pending but preliminary evaluation with personal review shows left-sided ischemic changes in both the frontal lobe and temporal lobe. Fits with her word finding difficulties and right-sided weakness. -Medically managing with aspirin 81 mg daily, Plavix 75 mg daily, high intensity statin Lipitor 40 mg nightly. -PT, OT, speech consults placed. Would benefit from continued therapy at discharge with all 3 services. -Allow for permissive hypertension. Goal blood pressure less than 180/100 - transition to [place] 12.5 mg twice daily, amlodipine 5 mg daily. Will make further adjustments pending blood pressure. Suspected UTI -UA grossly abnormal. White cell count normal 8.2, no signs of anemia. Treated empirically with levofloxacin 750 mg for 4 days. Asymptomatic. No further treatment necessary. CKD: Creatinine 1.7 BUN 49 Appears at her baseline. Caution with nephrotoxins. Repeat CBC, CMP, magnesium ordered for the morning Gout: Hold febuxostat as it is not on her formulary. No acute gout flares at this time. Intertrigo: Present under breasts and abdomen, continue nystatin powder Hypertension Hyperlipidemia -Metoprolol and statin as above. CODE STATUS unclear, full code pending discussion with family. DVT prophylaxis with heparin Regular diet Goals of care discussion with family this afternoon scheduled for 5 PM.
--- NOTE | 2023-06-07 14:15 | PC.NURSE ---
PT IS RESTING IN BED. ALERT AND ORIENTED X3 HOWEVER PT HAS BEEN HAVING EXTREME DIFFICULTY WITH FINDING WORDS. FOLLOWS COMMANDS WELL. RIGHT SIDED WEAKNESS NOTED. WEAKNESS MORE SEVERE IN THE RIGHT LEG. LUNG SOUNDS CLEAR. ABDOMEN SOFT/NON TENDER WITH ACTIVE BOWEL SOUNDS. EDEMA NOTED TO RLE. EATING AND DRINKING FAIR. WILL CONTINUE TO MONITOR.
[2023-06-07] MEDS: ATORVASTATIN 40MG TABLET 40 MG PO (20:53)
[2023-06-08 04:00] VITALS: BP 167/88; PULSE 65; RESP 18; TEMP 36.4; O2SAT 95; BMI 35.6
[2023-06-08 07:17] LABS: Basophils % 0.4 % (0.1-2.0); Eosinophils # 0.3 K/mm3 (0.0-0.4); Eosinophils % 3.6 % (0.1-12.0); Hematocrit 46.9 % (37.0-47.0); Hemoglobin 15.3 g/dL (12.2-16.2); Lymphocytes % 25.5 % (10-50); Mean Corpuscular HGB Conc 32.6 g/dL (31.8-35.4); Mean Corpuscular Hemoglobin 30.5 pg (27.0-31.2); Mean Corpuscular Volume 93.5 fl (81-99); Mean Platelet Volume 8.3 fl (7.4-10.4); Monocytes # 0.6 K/mm3 (0.1-1.0); Monocytes % 7.2 % (1.7-9.3); Neutrophils # 4.8 K/mm3 (1.8-7.8); Neutrophils % 63.3 % (37.0-80.0); Platelet Count 160 K/mm3 (142-424); Red Blood Count 5.02 M/mm3 (4.20-5.40); Red Cell Distribution Width 13.3 % (11.5-17.5); White Blood Count 7.7 K/mm3 (4.8-10.8)
[2023-06-08 07:28] LABS: Chloride 111 mmol/L (98-107); Potassium 4.4 mmoL/L (3.5-5.1); Sodium 140 mmol/L (136-145)
[2023-06-08 07:30] LABS: Blood Urea Nitrogen 51 mg/dl (7-17); Creatinine Clearance Estimated 43 mL/min (50-200); Estimated Glomerular Filt Rate 27 ml/min (>60); GFR (African American) 33 ML/MIN (>60)
[2023-06-08 07:31] LABS: Alanine Aminotransferase 24 U/L (12-78); Albumin Level 3.6 g/dl (3.5-5.0); Albumin/Globulin Ratio 1.2 (1.1-1.8); Alkaline Phosphatase 126 U/L (38-126); Anion Gap 6.4 mEq/L (5-15); Aspartate Amino Transferase 30 U/L (14-36); Bilirubin,Total 0.4 mg/dl (0.2-1.3); Calcium 8.8 mg/dl (8.4-10.2); Carbon Dioxide 27 mmol/L (22.0-30.0); Globulin 2.9 g/dL (1.3-3.2); Glucose 126 mg/dl (74-100); Total Protein,Serum 6.5 g/dl (6.3-8.2)
[2023-06-08] MEDS: ASPIRIN EC 81MG TABLET 81 MG PO (07:31)
[2023-06-08] MEDS: POTASSIUM CHLORIDE 20MEQ TAB 40 MEQ PO (07:32)
[2023-06-08] MEDS: DOCUSATE SODIUM 100 MG CAPSULE PO (07:32)
[2023-06-08] MEDS: FUROSEMIDE 20MG TABLET 20 MG PO (07:33)
[2023-06-08] MEDS: CARVEDILOL 12.5MG TABLET 12.5 MG PO (07:33)
[2023-06-08] MEDS: AMLODIPINE 5MG TABLET 5 MG PO (07:33)
[2023-06-08] MEDS: HEPARIN SODIUM 5,000 UNIT/ML VIAL 5000 UNIT SQ (07:33)
[2023-06-08] MEDS: CLOPIDOGREL 75MG TAB 75 MG PO (07:33)
[2023-06-08 07:35] VITALS: BP 170/76; PULSE 68; RESP 18; TEMP 36.8; O2SAT 93
[2023-06-08] MEDS: NYSTATIN TOPICAL POWDER 30GM TP ×2 (07:38→08:20)
[2023-06-08 07:43] VITALS: O2SAT 98
[2023-06-08 08:05] LABS: Magnesium 2.2 mg/dl (1.6-2.3)
--- NOTE | 2023-06-08 11:02 | P.DS_ITS ---
General Admission date:: 06/05/23 Discharge date: 06/08/23 HPI HPI HPI: Ms. Harris is a 78-year-old female history of hypertension, hyperlipidemia, CAD, diastolic dysfunction, dementia, CKD who presented to the ER from [facility] because of right-sided weakness and some confusion. Patient reports and history from nursing [facility] states that earlier today at approximately 2 PM she developed right-sided weakness, difficulty finding words, and some confusion. Patient was sent via EMS to the ER for further management. On initial evaluation, had right-sided weakness and dysarthria. During eval in the ER, symptoms gradually showed improvement. CT of head was obtained without contrast due to contrast allergy that did not show any acute stroke. Labs relatively normal with no leukocytosis, stable kidney function and electrolytes. UA concerning for UTI however. Patient is on aspirin and Plavix but not a statin at nursing facility. Unsure how long she has been at the nursing facilit y. Previously was living at home by herself. Denies any chest pain, shortness of breath, nausea, vomiting, abdominal pain or diarrhea. Has been receiving therapy services at the nursing [facility]. Medicine consulted for admission for further management of TIA and therapy consults. On evaluation, neuroexam shows no focal deficits unilaterally. Answers tangentially to questions. Able to speak in complete sentences but answers are not necessarily appropriate with questions asked. Appears to be pleasantly confused. Hospital Course Hospital Course Hospital Course: Ms. Harris is a 78-year-old female with multiple comorbidities who presented to the ER from her nursing facility for acute altered mental status and right- sided weakness. Workup in the ER with negative CT. Would benefit from MRI. UA abnormal concerning for UTI. Noted to have some recurrence of deficits on right side today with weakness and word finding difficulty. Discussion with family, word finding difficulty has been going on for over a month. Denies nausea or vomiting. Stable on room air. Continues to require inpatient management. MRI positive for CVA Dysarthria Suspected TIA/CVA Right-sided weakness Mild confusion History of dementia -CT with no acute stroke. MRI ordered, will be obtained Wednesday. Increased weakness on right side today, still having word finding difficulty -Medically managing with aspirin 81 mg daily, Plavix 75 mg daily, high intensity statin Lipitor 40 mg nightly. - MRI results: New cortical T2 abnormal signal in the medial posterior left frontal and anterior left parietal lobes at the level of the vertex. There is restricted diffusion in this area, consistent with acute ischemia. Concern for UTI - ruled out, no need for abx at DC CKD: Creatinine 1.6 BUN 35. Appears at her baseline. Hypertension Hyperlipidemia -Metoprolol and statin as above. stable for discharge to rehab Exam Data for Last 24 hours Vital signs and Labs for Last 24 Hours: Temp Pulse Resp BP Pulse Ox O2 Del Method 98.2 F 68 18 170/76 H 98 Room Air 06/08/23 07:35 06/08/23 07:35 06/08/23 07:35 06/08/23 07:35 06/08/23 07:43 06/08/23 07:43 Laboratory Results - last 24 hr 06/08/23 06:16: WBC 7.7 D, RBC 5.02, Hgb 15.3, Hct 46.9, MCV 93.5, MCH 30.5, MCHC 32.6, RDW 13.3, Plt Count 160, MPV 8.3, Neut % (Auto) 63.3, Lymph % (Auto) 25.5, [place] % (Auto) 7.2, Eos % (Auto) 3.6, Baso % (Auto) 0.4, Neut # (Auto) 4.8, Lymph # (Auto) 2.0, [place] # (Auto) 0.6, Eos # (Auto) 0.3, Baso # (Auto) 0.0, Sodium 140, Potassium 4.4 D, Chloride 111 H, Carbon Dioxide 27, Anion Gap 6.4, BUN 51 H, Creatinine 1.80 H, Estimated Creat Clear 43, Estimated GFR 27 L, Est GFR ( Amer) 33 L, Glucose 126 H, Calcium 8.8, Magnesium 2.2, Total Bilirubin 0.4, AST 30, ALT 24, Alkaline Phosphatase 126, Total Protein 6.5, Albumin 3.6, Globulin 2.9, Albumin/Globulin Ratio 1.2 I & O for Last 24 hours: Intake & Output 06/05/23 06/06/23 06/07/23 06/08/23 23:59 23:59 23:59 23:59 Intake Total 150 / 150 710 / 710 995 / 995 240 / 240 Output Total 0 / 0 300 / 300 1475 / 1475 250 / 250 Balance 150 / 150 410 / 410 -480 / -480 -10 / -10 Weight 127.006 kg 108.522 kg 108.862 kg 106.821 kg Constitutional Constitutional: no acute distress, obese, chronically ill appearing and cooperative *Routine HEENT Exam Head: Present normocephalic Eye: Present EOMI and PERRL ENT: Present mucous membranes moist *Routine Neck Exam Neck: Present supple and full ROM *Routine Respiratory Exam Respiratory: Present normal respiratory effort; Absent respiratory distress, rhonchi, wheezes or crackles *Routine Cardiovascular Exam Cardiovascular: Present RRR, Normal S1 and Normal S2; Absent murmur, gallop or rubs *Routine Abdominal Exam Abdominal: Present soft and normoactive bowel sounds; Absent tenderness *Routine Rectal Exam Patient deferred: visual exam *Routine Exam Patient deferred: external exam *Routine Extremities Exam Extremities: Present edema (trace BLE) and normal capillary refill; Absent cyanosis or clubbing *Routine Skin Exam Skin: Present intact Comments: chronic stasis changes in RLE *Routine Neurological Exam Neurological: Present alert and moving all extremities; Absent altered mental status Comments: Oriented to self. Pleasantly confused. Difficulty with word finding at baseline. Strength in right upper and lower extremity 4/5, left upper and lower extremity 5/5. Routine Psychiatric Exam Psychiatric: Present normal affect and cooperative Results Data Completed and Pending Labs on day of discharge: Labs from last 24 hours 06/08/23 06:16 WBC 7.7 D RBC 5.02 Hgb 15.3 Hct 46.9 MCV 93.5 MCH 30.5 MCHC 32.6 RDW 13.3 Plt Count 160 MPV 8.3 Neut % (Auto) 63.3 Lymph % (Auto) 25.5 [place]aines % (Auto) 7.2 Eos % (Auto) 3.6 Baso % (Auto) 0.4 Neut # (Auto) 4.8 Lymph # (Auto) 2.0 Gaines # (Auto) 0.6 Eos # (Auto) 0.3 Baso # (Auto) 0.0 Sodium 140 Potassium 4.4 D Chloride 111 H Carbon Dioxide 27 Anion Gap 6.4 BUN 51 H Creatinine 1.80 H Estimated Creat Clear 43 Estimated GFR 27 L Est GFR ( Amer) 33 L Glucose 126 H Calcium 8.8 Magnesium 2.2 Total Bilirubin 0.4 AST 30 ALT 24 Alkaline Phosphatase 126 Total Protein 6.5 Albumin 3.6 Globulin 2.9 Albumin/Globulin Ratio 1.2 DS: Diagnosis Discharge Diagnosis (1) CVA (cerebral vascular accident): Status: Acute Code(s): I63.9 - Cerebral infarction, unspecified Qualifiers: CVA mechanism: other Qualified Code(s): I63.89 - Other cerebral infarction (2) Acute UTI: Status: Acute Code(s): N39.0 - Urinary tract infection, site not specified (3) Acute confusion: Status: Acute Code(s): R41.0 - Disorientation, unspecified (4) Intertrigo: Status: Chronic Code(s): L30.4 - Erythema intertrigo (5) Renal insufficiency: Status: Chronic Code(s): N28.9 - Disorder of kidney and ureter, unspecified (6) Hypertension: Status: Chronic Code(s): I10 - Essential (primary) hypertension Qualifiers: Hypertension type: essential hypertension Qualified Code(s): I10 - Essential (primary) hypertension (7) Grade II diastolic dysfunction: Status: Chronic Code(s): I51.9 - Heart disease, unspecified (8) CAD (coronary artery disease): Status: Chronic Code(s): I25.10 - Atherosclerotic heart disease of [place] coronary artery without angina pectoris Qualifiers: Coronary Disease-Associated Artery/Lesion type: [place] artery [place] vs. transplanted heart: [place] heart Associated angina: without angina Qualified Code(s): I25.10 - Atherosclerotic heart disease of [place] coronary artery without angina pectoris Meds Home Medications and Allergies Home Medications Medication Instructions Recorded Confirmed Type febuxostat 80 mg tablet 80 mg PO DAILY gout 12/21/22 06/05/23 History docusate sodium 100 mg tablet 100 mg PO DAILY 06/05/23 06/05/23 History furosemide 20 mg tablet 20 mg PO DAILY Fluid 06/05/23 06/05/23 History aspirin 81 mg tablet,delayed 81 mg PO DAILY 30 days #30 tabs 06/07/23 Rx release atorvastatin 40 mg tablet 40 mg PO HS 30 days #30 tabs 06/07/23 Rx clopidogrel 75 mg tablet 75 mg PO DAILY 30 days #30 tabs 06/07/23 Rx amlodipine 5 mg tablet 5 mg PO DAILY 30 days #30 tabs 06/08/23 Rx carvedilol 12.5 mg tablet 12.5 mg PO BID 30 days #60 tabs 06/08/23 Rx New Prescriptions to Start Prescriptions: amlodipine Charlie Ingram aspirin Sahil Urias atorvastatin Sahil Urias carvedilol Juan Jose,Charlie clopidogrel Sahil Urias Allergies Allergy/AdvReac Type Severity Reaction Status Date / Time ceftriaxone [From Rocephin] Allergy Severe Hives Verified 04/08/21 08:16 iodine Allergy Unknown Verified 04/17/20 12:14 NSAIDS (Non-Steroidal Allergy Unknown Verified 04/17/20 12:14 Anti-Inflamma Discharge Plan Disposition Patient Disposition: Xfer SNF Condition: Fair Discharge Order Discharge Orders: Discharge Order (Routine); Ordered 06/08/23 Ordered By: Charlie Ingram Follow up Plan Follow up with: Provider,Referral, MD [Primary Care Provider] - 2 weeks Prescriptions/Medication Reconciliation: New atorvastatin 40 mg Tablet 40 mg PO HS 30 Days Qty: 30 0RF clopidogrel 75 mg Tablet 75 mg PO DAILY 30 Days Qty: 30 0RF aspirin 81 mg Tablet,Delayed Release (Dr/Ec) 81 mg PO DAILY 30 Days Qty: 30 0RF carvedilol 12.5 mg Tablet 12.5 mg PO BID 30 Days Qty: 60 0RF amlodipine 5 mg Tablet 5 mg PO DAILY 30 Days Qty: 30 0RF Continued febuxostat 80 mg Tablet 80 mg PO DAILY furosemide 20 mg Tablet 20 mg PO DAILY docusate sodium 100 mg Tablet 100 mg PO DAILY Problem Reconciliation Problems Reviewed?: Yes Patient Discharge Instructions ACTIVITY: Continue current activity and Up with assistance DIET: continue same diet Patient Instructions: DI for Transient Ischemic Attack, DI for Urinary Tract Infection (UTI) Providers Primary Care Provider: Provider,Referral Admit Provider: Sahil Urias Attending Provider: Sahil Urias
--- NOTE | 2023-06-08 12:33 | PC.NURSE ---
report called to grand manohar ramirez rn.
== END 2023-06-08 13:32 | DRG 65 ==
LOC: ER 17:21 → 2ND 17:22
PROVIDERS: Admitting Provider Internal Medicine Adolescent Medicine; Emergency Provider Emergency Medicine; Visit Provider Internal Medicine Adolescent Medicine
DX: I63.9 Cerebral infarction, unspecified (principal); N39.0 Urinary tract infection, site not specified; L30.4 Erythema intertrigo; I25.10 Atherosclerotic heart disease of native coronary artery without angina pectoris; E78.5 Hyperlipidemia, unspecified; Z86.73 Personal history of transient ischemic attack (TIA), and cerebral infarction without residual deficits; F03.90 Unspecified dementia, unspecified severity, without behavioral disturbance, psychotic disturbance, mood disturbance, and anxiety; I12.9 Hypertensive chronic kidney disease with stage 1 through stage 4 chronic kidney disease, or unspecified chronic kidney disease; N18.9 Chronic kidney disease, unspecified; E66.01 Morbid (severe) obesity due to excess calories; Z68.35 Body mass index [BMI] 35.0-35.9, adult; R47.1 Dysarthria and anarthria; M10.9 Gout, unspecified; Z66 Do not resuscitate
CPT/HCPCS: 36415; 70450; 70551; 71045; 80053; 81001; 83735; 83880; 84484; 85025; 92523; 93005; 97110; 97163; 97165; 97530; 99291; J1956

== ENCOUNTER 2023-09-07 19:31 | Outpatient (CLI) | payer MEDICARE, OTHER, SELFPAY ==
[2023-09-07 19:48] LABS: Microscopic, Urine URINE MICROSCOPIC (MICROSCOPIC)
[2023-09-07 21:15] LABS: Appearance,Urine SL CLOUDY (Clear); Bilirubin,Urine Negative (Negative); Blood, Urine Negative (Negative); Color,Urine YELLOW (Yellow); Glucose,Urine (UA) Negative (Negative); Ketones,Urine Negative (Negative); Leukocyte Esterase,Urine Negative (Negative); Nitrate,Urine POSITIVE (Negative); Protein,Urine Negative (Negative); Specific Gravity, Urine 1.025 (1.005-1.030); Urobilinogen,Urine 0.2 EU/dl (0.2)
[2023-09-07 21:50] LABS: Bacteria,Urine 2+ /lpf; Mucus,Urine Trace /lpf
== END 2023-09-07 23:59 | disposition home or self-care (01) ==
LOC: LAB.DROPOF 19:34
PROVIDERS: Internal Medicine Adolescent Medicine; PCP Nurse Practitioner Family; Visit Provider Nurse Practitioner Family
DX: I69.351 Hemiplegia and hemiparesis following cerebral infarction affecting right dominant side (principal); F41.9 Anxiety disorder, unspecified; R13.12 Dysphagia, oropharyngeal phase; I51.9 Heart disease, unspecified; L30.4 Erythema intertrigo; B96.29 Other Escherichia coli [E. coli] as the cause of diseases classified elsewhere; N39.0 Urinary tract infection, site not specified
CPT/HCPCS: 81001; 87086; 87088; 87186

== ENCOUNTER 2023-10-28 07:26 | Emergency (ER) | payer MEDICARE, OTHER, SELFPAY ==
[2023-10-28 07:28] VITALS: BP 147/81; PULSE 83; RESP 16; TEMP 36.7; O2SAT 93; BMI 32.9
--- NOTE | 2023-10-28 07:29 | ED_ITS ---
Discharge Plan Disposition Patient Disposition: Xfer SNF Condition: Good Prescriptions Prescriptions: No Action febuxostat 80 mg Tablet 80 mg PO DAILY furosemide 20 mg Tablet 20 mg PO DAILY docusate sodium 100 mg Tablet 100 mg PO DAILY atorvastatin 40 mg Tablet 40 mg PO HS 30 Days Qty: 30 0RF clopidogrel 75 mg Tablet 75 mg PO DAILY 30 Days Qty: 30 0RF aspirin 81 mg Tablet,Delayed Release (Dr/Ec) 81 mg PO DAILY 30 Days Qty: 30 0RF carvedilol 12.5 mg Tablet 12.5 mg PO BID 30 Days Qty: 60 0RF amlodipine 5 mg Tablet 5 mg PO DAILY 30 Days Qty: 30 0RF Referrals Follow up/Referrals: Mickey Singh MD [Primary Care Provider] - See instructions Activity Restrictions/Add. Instructions Additional Instructions/Restrictions: You have been evaluated in the emergency department following a fall. On examination we did not see any evidence of trauma to her extremities or body. You received CT scans of your head and neck which reveal no fractures or intracranial hemorrhage. Your blood sugar was without hypoglycemia. You are stable for discharge at this time. Please return with any new or worsening symptoms. Clinical Impressions Clinical Impression: Unwitnessed fall Discharge ED Provider: Thanh Alexis General Adult HPI General Chief complaint: Fall Stated complaint: Fall out of bed: hospice pt Time Seen by Provider: 10/28/23 07:29 History of Present Illness HPI narrative: The patient presents following unwitnessed fall in correction. The exact time of the fall is unknown. History limited secondary to chronic dementia. No previous therapies prior to arrival. Patient was reportedly in normal state of health prior to onset of symptoms. fall was reportedly from ground level position. Fingerstick blood sugar prior to arrival within normal limits. Cervical collar placed prior to arrival. Please note that above description of symptoms, in this electronic medical record under categorization of recalled from ER triage doctor by RN are reflective of an initial nursing assessment, however, is not reflective of my full history and physical exam that was personally taken and clarified. Consequentially, this preceding description of symptoms, which may include the patient's categorized chief complaint in the EMR, do not reflect my personal clinical impression, and the ultimate description of history of present illness and patient stated complaints should be deferred to this section of the note. Unless stated otherwise or congruent with this section of the note, additional signs, symptoms, or incongruence should be interpreted as inaccurate with my clinical impression. Related Data Home Medications Medication Instructions Recorded Confirmed febuxostat 80 mg tablet 80 mg PO DAILY gout 12/21/22 06/05/23 docusate sodium 100 mg tablet 100 mg PO DAILY 06/05/23 06/05/23 furosemide 20 mg tablet 20 mg PO DAILY Fluid 06/05/23 06/05/23 Previous Rx's Medication Instructions Recorded aspirin 81 mg tablet,delayed 81 mg PO DAILY 30 days #30 tabs 06/07/23 release atorvastatin 40 mg tablet 40 mg PO HS 30 days #30 tabs 06/07/23 clopidogrel 75 mg tablet 75 mg PO DAILY 30 days #30 tabs 06/07/23 amlodipine 5 mg tablet 5 mg PO DAILY 30 days #30 tabs 06/08/23 carvedilol 12.5 mg tablet 12.5 mg PO BID 30 days #60 tabs 06/08/23 Allergies Allergy/AdvReac Type Severity Reaction Status Date / Time ceftriaxone [From Rocephin] Allergy Severe Hives Verified 04/08/21 08:16 iodine Allergy Unknown Verified 04/17/20 12:14 NSAIDS (Non-Steroidal Allergy Unknown Verified 04/17/20 12:14 Anti-Inflamma PFSH PFSH Disclaimer: The information contained in this section may have been updated after the patient was seen, as this information can be updated by other users. Medical History BMI 39.0-39.9,adult Concussion with loss of consciousness Elevated troponin Gram positive sepsis Hypertension Morbid obesity with BMI of 40.0-44.9, adult Pain due to onychomycosis of toenail Family History No significant family history Social History (Updated 06/05/23 @ 19:07 by Darlene Issa RN) Smoking Status: Unknown if ever smoked alcohol intake: never substance use type: denies use current occupational status: unemployed and retired Travel in the last 8 weeks: None household members: spouse housing: house current occupational exposures/hazards: No caffeine: No ROS Obtained: Yes other As per HPI Physical Exam General General appearance: alert Head Head exam: atraumatic and normocephalic Eye Eye exam: Present normal appearance Neck Neck exam: Present normal inspection Chest Chest inspection: Present normal inspection and symmetric chest wall rise Respiratory Respiratory exam: Present normal lung sounds bilaterally; Absent respiratory distress Cardiovascular Cardiovascular exam: Present regular rate and normal rhythm Abdominal Exam Abdominal exam: Present soft Neurological Exam Neurological exam: Present alert Psychiatric Psychiatric exam: Present normal affect Skin Skin exam: Present warm and dry Other Other exam information: No clinical evidence of head, neck injury, nor injury to bilateral upper nor lower extremities. Nontender to palpation chest, midline spine, abdomen, pelvis Medical Decision Making Medical Records Medical records reviewed: Yes I reviewed the patient's medical records. Brennan Inquiry Pt receiving controlled substance: No Vital Signs: 10/28/23 07:28 10/28/23 07:30 10/28/23 08:00 Temperature 98.1 F Temperature Source Axillary Pulse Rate 80 80 Pulse Rate [Right] 83 Respiratory Rate 16 Blood Pressure 170/96 H 194/101 H Blood Pressure [Left Arm] 147/81 H Blood Pressure Mean [Left Arm] 103 Blood Pressure Source Blood Pressure Source [Left Arm] Automatic Cuff Blood Pressure Position Blood Pressure Position [Left Arm] Sitting 02 Sat by Pulse Oximetry 93 L 95 95 Oxygen Delivery Method Room Air Room Air Room Air 10/28/23 10:22 Temperature 98.1 F Temperature Source Axillary Pulse Rate 84 Pulse Rate [Right] Respiratory Rate 18 Blood Pressure 177/81 H Blood Pressure [Left Arm] Blood Pressure Mean [Left Arm] Blood Pressure Source Automatic Cuff Blood Pressure Source [Left Arm] Blood Pressure Position Sitting Blood Pressure Position [Left Arm] 02 Sat by Pulse Oximetry Oxygen Delivery Method Room Air Orders (Tests/Meds): ORDERS Category Date Time Status CT cervical spine wo con Stat Cat Scan 10/28/23 07:[address] head/brain wo con Stat Cat Scan 10/28/23 07:40 Completed Medical Decision Narrative: Patient with history and exam per above presenting for evaluation of unwitnessed fall Diagnoses considered include intracranial hemorrhage, cervical spinal injury, no clinical evidence to suggest preceding illness, extremity injury, nor intra- thoracic or intra-abdominal pathology. No reported blood thinner usage. Patient appears at baseline per son who later presents the bedside. ED workup and treatment included: ORDERS Category Date Time Status CT cervical spine wo con Stat Cat Scan 10/28/23 07:[address] head/brain wo con Stat Cat Scan 10/28/23 07:40 Completed Labs were independently interpreted by me, significant for no hypoglycemia on fingerstick blood sugar Imaging was independently visualized and interpreted by me, significant for no acute findings Please refer to radiology report for full details. My clinical impression at this time is most consistent with ground-level fall patient is deemed stable for discharge at this time to correction, correction was provided return precautions. Critical Care Critical Care Time Critical Care Time: No
[2023-10-28 07:30] VITALS: BP 170/96; PULSE 80; O2SAT 95
--- NOTE | 2023-10-28 07:40 | CT_ITS ---
FINAL REPORT TECHNIQUE: Thin section axial images were obtained through the cervical spine without contrast. Multiplanar reconstruction images were obtained from the axial data. Exam was performed using dose reduction techniques. CLINICAL HISTORY: unwitnessed fall/nonverbal COMPARISON: 03/01/2022 FINDINGS: There is no acute fracture or acute malalignment of the cervical spine. There is multilevel degenerative disc disease which has progressed since previous. There is no evidence of unilateral or bilateral facet lock. Vertebral body height is preserved. No acute paraspinal abnormality is identified. There is a small amount of fluid in the bilateral maxillary sinuses. IMPRESSION: Multilevel degenerative disc disease, progressed since previous. Reviewed, Interpreted and Dictated by My Trevino MD Transcribed by Ashlee Huynh Authenticated and [facility]
--- NOTE | 2023-10-28 07:40 | CT_ITS ---
FINAL REPORT CLINICAL HISTORY: unwitnessed fall/nonverbal COMPARISON: 06/05/2023 FINDINGS: Axial images of the head were obtained without contrast. Coronal reformatted images were also obtained. This study was performed with techniques to keep radiation doses as low as reasonably achievable (ALARA). Individualized dose reduction techniques using automated exposure control or adjustment of mA and/or kV according to the patient's size were employed. There is generalized age-appropriate atrophy. Periventricular low-attenuation areas are seen consistent with mild chronic ischemic changes. 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 There is stable small hypodensity in the left cerebellum. There is no evidence of intracranial hemorrhage or mass. There is no evidence of acute infarct. There is no evidence of shift of the midline structures. No skull abnormality is seen on the bone window images. There is a small amount of fluid in the bilateral maxillary sinuses and mastoid air cells. IMPRESSION: Atrophy and mild periventricular chronic ischemic changes. No acute intracranial abnormality identified. Sinusitis of the bilateral maxillary sinuses and mastoid air cells. Reviewed, Interpreted and Dictated by My Trevino MD Transcribed by Ashlee Huynh Authenticated and [facility]
--- NOTE | 2023-10-28 07:54 | PC.NURSE ---
pt to ct
--- NOTE | 2023-10-28 07:58 | PC.NURSE ---
pt returned from ct
[2023-10-28 08:00] VITALS: BP 194/101; PULSE 80; O2SAT 95
--- NOTE | 2023-10-28 08:23 | PC.NURSE ---
FAMILY AT BEDSIDE, UPDATED BY DR TREVINO
--- NOTE | 2023-10-28 10:01 | PC.NURSE ---
DR TREVINO AT BEDSIDE TO UPDATE PT AND FAMILY
--- NOTE | 2023-10-28 10:12 | PC.NURSE ---
I CALLED REPORT TO THE PTS NURSE, DENA, AT [facility]
--- NOTE | 2023-10-28 10:13 | PC.NURSE ---
[facility] NOTIFIED OF RETURN TRANSFER TO [facility]
[2023-10-28 10:22] VITALS: BP 177/81; PULSE 84; RESP 18; TEMP 36.7; O2SAT 95
--- NOTE | 2023-10-28 10:43 | PC.NURSE ---
[facility] TO TRANSPORT PT TO [facility]
== END 2023-10-28 10:43 ==
PROVIDERS: Emergency Provider Emergency Medicine; PCP Internal Medicine Adolescent Medicine
DX: Z04.3 Encounter for examination and observation following other accident (principal)
CPT/HCPCS: 70450; 72125; 87086; 87088; 87186; 99284

== ENCOUNTER 2023-10-28 19:33 | Outpatient (CLI) | payer MEDICARE, OTHER, SELFPAY | END 2023-10-28 23:59 | disposition home or self-care (01) | LOC: LAB.DROPOF 19:35 | PROVIDERS: PCP Nurse Practitioner Family; Visit Provider Nurse Practitioner Family | DX: N28.9 Disorder of kidney and ureter, unspecified (principal) | CPT/HCPCS: 87086; 87088; 87186 ==

== ENCOUNTER 2023-12-09 04:00 | Emergency (ER) | payer MEDICARE, OTHER, SELFPAY ==
[2023-12-09] VITALS (12 sets, daily range): BP systolic 157–200; BP diastolic 76–99; PULSE 73–85; RESP 16–20; TEMP 36.5–36.7; O2SAT 94–97; BMI 39.1
--- NOTE | 2023-12-09 04:10 | CT_ITS ---
PROCEDURE INFORMATION: Exam: CT Head Without Contrast Exam date and time: 12/09/2023 4:27 AM Age: 78 years old Clinical indication: Injury or trauma; Fall; Other: Pain; Additional info: Fall, R frontal scalp hematoma TECHNIQUE: Imaging protocol: Computed tomography of the head without contrast. Radiation optimization: All CT scans at this facility use at least one of these dose optimization techniques: automated exposure control; mA and/or kV adjustment per patient size (includes targeted exams where dose is matched to clinical indication); or iterative reconstruction. COMPARISON: CT HEAD/BRAIN WO CON 12/09/2023 4:27 AM FINDINGS: Brain: No acute intracranial hemorrhage. Large area of left frontoparietal and temporal encephalomalacia is persistent. White matter periventricular hypodensity likely secondary to small vessel disease. Global parenchymal atrophy. No midline shift. Cerebral ventricles: Mild ventricular enlargement with left lateral ventricle posterior horn ex vacuo dilatation. Paranasal sinuses: Bilateral maxillary sinus and nasoethmoid space mild mucoperiosteal thickening. Left maxillary sinus small mucous retention cyst. Mastoid air cells: Visualized mastoid air cells are well aerated. Orbital cavities: Globes intact. No retro-orbital air. Bones: No acute calvarial fracture. Soft tissues: New right frontal scalp hematoma. Vasculature: Carotid and vertebrobasilar artery vascular calcification. IMPRESSION: No acute intracranial hemorrhage.
--- NOTE | 2023-12-09 04:10 | CT_ITS ---
PROCEDURE INFORMATION: Exam: CT Cervical Spine Without Contrast Exam date and time: 12/09/2023 4:29 AM Age: 78 years old Clinical indication: Neck pain; Additional info: Fall, frontal hematoma TECHNIQUE: Imaging protocol: Computed tomography of the cervical spine without contrast. Radiation optimization: All CT scans at this facility use at least one of these dose optimization techniques: automated exposure control; mA and/or kV adjustment per patient size (includes targeted exams where dose is matched to clinical indication); or iterative reconstruction. COMPARISON: CT CERVICAL SPINE WO CON 10/28/2023 7:56 AM FINDINGS: Limitations: Beam hardening/motion/noise artifact. Bones: Cervical spine well-visualized from occiput to T1. Normal alignment of cervical vertebral bodies and posterior elements. Vertebral body and disc heights well preserved. Multilevel endplate hypertrophy and degenerative debris. Anterior C5-C6 disc marginal calcification. Multilevel facet hypertrophy. This appearance is persistent. No acute cervical spine fracture or jumped facet. No spinal stenosis or neuroforaminal stenosis. Paranasal sinuses: Left maxillary sinus mucous retention cyst. Prevertebral and retropharyngeal spaces: No prevertebral edema. Trachea: Airway unremarkable. Lungs: Upper lungs scarring/parenchymal lucencies suggest centrilobular emphysema. Pleural spaces: No apical pneumothorax. Vasculature: Carotid and vertebral artery vascular calcification. Soft tissues: Neck soft tissues unremarkable. IMPRESSION: Stable cervical degenerative changes.
--- NOTE | 2023-12-09 04:14 | ED_ITS ---
Discharge Plan Disposition Patient Disposition: Xfer SNF Condition: Good Chief Complaint: Fall Prescriptions Prescriptions: No Action febuxostat 80 mg Tablet 80 mg PO DAILY furosemide 20 mg Tablet 20 mg PO DAILY docusate sodium 100 mg Tablet 100 mg PO DAILY atorvastatin 40 mg Tablet 40 mg PO HS 30 Days Qty: 30 0RF clopidogrel 75 mg Tablet 75 mg PO DAILY 30 Days Qty: 30 0RF aspirin 81 mg Tablet,Delayed Release (Dr/Ec) 81 mg PO DAILY 30 Days Qty: 30 0RF carvedilol 12.5 mg Tablet 12.5 mg PO BID 30 Days Qty: 60 0RF amlodipine 5 mg Tablet 5 mg PO DAILY 30 Days Qty: 30 0RF Activity Restrictions/Add. Instructions Additional Instructions/Restrictions: Celine was evaluated in the ER and is appropriate for discharge. She needs to follow-up with her primary care doctor in 2 to 3 days for reevaluation. Return to the ER with new, worsening, or otherwise concerning symptoms. 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 Unknown downtime. Unknown loss of consciousness. Patient does not take any blood thinners according to intermediate med list. EMS was called after patient was found on the floor next to her bed. She had a hematoma on her right eyebrow/frontal scalp. Patient is on hospice. EMS reports a fingerstick of 161 en route. They were able to place an IV. No medications were administered during transport. At baseline patient is nonverbal, will occasionally give a thumbs up but otherwise requires full care. Related Data Home Medications ?Medication ?Instructions ?Recorded ?Confirmed febuxostat 80 mg tablet 80 mg PO DAILY gout 12/21/22 06/05/23 docusate sodium 100 mg tablet 100 mg PO DAILY 06/05/23 06/05/23 furosemide 20 mg tablet 20 mg PO DAILY Fluid 06/05/23 06/05/23 Previous Rx's ?Medication ?Instructions ?Recorded aspirin 81 mg tablet,delayed 81 mg PO DAILY 30 days #30 tabs 06/07/23 release atorvastatin 40 mg tablet 40 mg PO HS 30 days #30 tabs 06/07/23 clopidogrel 75 mg tablet 75 mg PO DAILY 30 days #30 tabs 06/07/23 amlodipine 5 mg tablet 5 mg PO DAILY 30 days #30 tabs 06/08/23 carvedilol 12.5 mg tablet 12.5 mg PO BID 30 days #60 tabs 06/08/23 Allergies Allergy/AdvReac Type Severity Reaction Status Date / Time ceftriaxone [From Rocephin] Allergy Severe Hives Verified 04/08/21 08:16 iodine Allergy Unknown Verified 04/17/20 12:14 NSAIDS (Non-Steroidal Allergy Unknown Verified 04/17/20 12:14 Anti-Inflamma PFSH [facility] Disclaimer: The information contained in this section may have been updated after the patient was seen, as this information can be updated by other users. Medical History BMI 39.0-39.9,adult Concussion with loss of consciousness Elevated troponin Gram positive sepsis Hypertension Morbid obesity with BMI of 40.0-44.9, adult Pain due to onychomycosis of toenail Family History No significant family history Social History (Updated 06/05/23 @ 19:07 by Darlene Issa RN) Smoking Status: Never smoker alcohol intake: never substance use type: denies use current occupational status: unemployed and retired Travel in the last 8 weeks: None household members: spouse housing: house current occupational exposures/hazards: No caffeine: No ROS Obtained: Yes unobtainable due to mental status (previous strokes, dementia, at her mental baseline) Physical Exam General General appearance: alert and in no apparent distress Comment: Chronically ill-appearing, right upper extremity contracture Head Head exam: normocephalic and other (Hematoma right eyebrow, right frontal scalp, no palpable underlying deformity) Eye Eye exam: Present PERRL, EOMI and other (No hyphema) ENT ENT exam: Present mucous membranes moist Neck Neck exam: Present normal inspection and other (Stabilizing neck roll in place due to patient having significantly short neck); Absent tenderness Chest Chest inspection: Present symmetric chest wall rise; Absent tenderness Respiratory Respiratory exam: Present normal lung sounds bilaterally; Absent respiratory distress, wheezes or stridor Cardiovascular Cardiovascular exam: Present regular rate and normal rhythm Abdominal Exam Abdominal exam: Present soft; Absent distention, tenderness, guarding or rebound External exam: Present other (Erythematous changes of the skin over the sacrum, right gluteal area, no open skin wounds) Extremities Exam Extremities exam: Present full ROM (At baseline patient has contracture of the right upper extremity, other extremities have full range of motion); Absent tenderness or joint swelling (No deformity) Back Exam Back exam: Absent CVA tenderness (R), CVA tenderness (L) or vertebral tenderness (No step-off or deformity.) Neurological Exam Neurological exam: Present alert and motor sensory deficit (Right upper extremity contracture, limited range of motion, patient responds to painful stimuli equally in the other 3 extremities. She is at her neurologic baseline according to report) Psychiatric Psychiatric exam: Present normal affect Skin Skin exam: Present warm and dry Medical Decision Making Medical Records Medical records reviewed: Yes I reviewed the patient's medical records. MR Comment: Most recent admission at the beginning of this year for urinary tract infection. Patient has a history of hypertension, hyperlipidemia, CAD, CKD. Patient was admitted in part for TIA and at that time was on aspirin and Plavix. UTI at that time seem to be exacerbating symptoms of previous CVA. MRI during that admission was positive for CVA. Patient was not discharged on any antibiotics. Baseline creatinine 1.6. Brennan Inquiry Pt receiving controlled substance: No Vital Signs: 12/09/23 04:00 12/09/23 04:42 12/09/23 04:44 Temperature 97.7 F Temperature Source Temporal Artery Scan Pulse Rate 78 76 Pulse Rate [Left] 78 Respiratory Rate 16 20 20 Blood Pressure 180/90 H 181/87 H Blood Pressure [Right Arm] 200/98 H Blood Pressure Mean [Right Arm] 132 Blood Pressure Source Manual Cuff/ Auscultation Automatic Cuff Blood Pressure Source [Right Arm] Manual Cuff/ Auscultation Blood Pressure Position Supine Supine 02 Sat by Pulse Oximetry 94 L 94 L 94 L Oxygen Delivery Method Room Air Room Air Room Air 12/09/23 04:51 Temperature Temperature Source Pulse Rate Pulse Rate [Left] Respiratory Rate Blood Pressure 180/90 H Blood Pressure [Right Arm] Blood Pressure Mean [Right Arm] Blood Pressure Source Blood Pressure Source [Right Arm] Blood Pressure Position 02 Sat by Pulse Oximetry Oxygen Delivery Method Lab Data Lab Results 12/09/23 04:00: WBC 7.5, RBC 5.21, Hgb 15.6, Hct 48.9 H, MCV 93.9, MCH 29.9, MCHC 31.9, RDW 13.9, Plt Count 132 L, MPV 8.2, Neut % (Auto) 65.5, Lymph % (Auto) 21.6, [place] % (Auto) 5.4, Eos % (Auto) 6.7, Baso % (Auto) 0.7, Neut # (Auto) 4.9, Lymph # (Auto) 1.6, [place] # (Auto) 0.4, Eos # (Auto) 0.5 H, Baso # (Auto) 0.1, Sodium 141, Potassium 4.0, Chloride 111 H, Carbon Dioxide 25, Anion Gap 9.0, BUN 29 H, Creatinine 1.10 H, Estimated Creat Clear 74, Estimated GFR 48 L, Est GFR ( Amer) 58 L, Glucose 131 H, Calcium 9.0, Total Creatine Kinase 71 12/09/23 04:32: Lactate 1.2 12/09/23 04:00 12/09/23 04:00 Orders (Tests/Meds): ED MEDICATIONS Discontinued Medications Generic Name Dose Route Start Last Admin Trade Name Freq PRN Reason Stop Dose Admin Lactated Ringer's 500 mls @ 999 mls/hr 12/09/23 04:11 12/09/23 04:37 Lactated Ringer's 500ml IV 12/09/23 04:41 999 mls/hr .Q31M ONE Administration Labetalol HCl 5 mg 12/09/23 04:13 12/09/23 04:51 Labetalol 20mg/4ml Syringe IV 12/09/23 04:14 Not Given ONCE ONE ORDERS Category Date Time Status CT cervical spine wo con Stat Cat Scan 12/09/23 04:[address] head/brain wo con Stat Cat Scan 12/09/23 04:10 Completed BMP [Basic Metabolic Panel] Stat Lab 12/09/23 04:00 Completed CBC w/Auto Diff [Complete Blood Count Auto Diff] Stat Lab 12/09/23 04:00 Completed CK [Creatine Kinase] Stat Lab 12/09/23 04:00 Completed Lactic Acid Stat Lab 12/09/23 04:32 Completed Medical Decision Narrative: In summary, this 78-year-old female presents to the emergency department today with concerns of injury after fall with right frontal hematoma. On initial evaluation patient is hemodynamically stable though hypertensive, afebrile, obvious hematoma over the right frontal scalp and right eyebrow without laceration, no injury appreciated to the eye, no bony deformity, no new neurologic deficit appreciated on exam. Patient appears to be at neurologic baseline according to her report provided by EMS and intermediate information. Differential diagnosis includes but is not limited to intracranial bleed, midline shift, skull fracture, cervical spine injury, and is unclear how patient ended up on the floor or how long she was down so basic labs including CBC, BMP, lactic, CK were ordered to evaluate for possible muscle breakdown, rhabdomyolysis. CT imaging ordered. IV labetalol was ordered for the patient for hypertension, however on recheck just before this medication was administered, her blood pressure had improved and systolic was 180 so labetalol not be administered at this time. Will continue to monitor and administer this medication if necessary. Labs personally reviewed demonstrate no leukocytosis or anemia, mild thrombocytopenia, BMP with mild hyperchloremia, kidney dysfunction appears to be at baseline, actually somewhat improved from previous. CK normal at 71. Lactic normal. All lab findings are reassuring against extended period of time on the floor or other acute pathology. CT imaging personally interpreted demonstrates no acute intracranial bleed or midline shift. No skull fracture appreciated. Right frontal hematoma consistent with exam findings. Patient has significant areas of volume loss from previous strokes, old ischemic changes. No cervical spine injury appreciated. See radiology read for final interpretation. C-collar removed. On reassessment patient continues to be stable and is appropriate for discharge at this time. Patient's intermediate was updated on workup and findings. They were given instructions on continued symptomatic monitoring, follow-up, and return precautions for the ER. Patient was discharged in stable condition. Critical Care Critical Care Time Critical Care Time: No
--- NOTE | 2023-12-09 04:16 | PC.NURSE ---
Notified [facility] navigators of hospice patient being in ED.
[2023-12-09 04:19] LABS: Basophils # 0.1 K/mm3 (0-0.2); Basophils % 0.7 % (0.1-2.0); Chloride 111 mmol/L (98-107); Eosinophils # 0.5 K/mm3 (0.0-0.4); Eosinophils % 6.7 % (0.1-12.0); Hematocrit 48.9 % (37.0-47.0); Hemoglobin 15.6 g/dL (12.2-16.2); Lymphocytes # 1.6 K/mm3 (0.7-4.5); Lymphocytes % 21.6 % (10-50); Mean Corpuscular HGB Conc 31.9 g/dL (31.8-35.4); Mean Corpuscular Hemoglobin 29.9 pg (27.0-31.2); Mean Corpuscular Volume 93.9 fl (81-99); Mean Platelet Volume 8.2 fl (7.4-10.4); Monocytes # 0.4 K/mm3 (0.1-1.0); Monocytes % 5.4 % (1.7-9.3); Neutrophils # 4.9 K/mm3 (1.8-7.8); Neutrophils % 65.5 % (37.0-80.0); Platelet Count 132 K/mm3 (142-424); Red Blood Count 5.21 M/mm3 (4.20-5.40); Red Cell Distribution Width 13.9 % (11.5-17.5); White Blood Count 7.5 K/mm3 (4.8-10.8)
[2023-12-09 04:20] LABS: Sodium 141 mmol/L (136-145)
[2023-12-09 04:22] LABS: Blood Urea Nitrogen 29 mg/dl (7-17); Creatinine Clearance Estimated 74 mL/min (50-200); Estimated Glomerular Filt Rate 48 ml/min (>60); GFR (African American) 58 ML/MIN (>60)
[2023-12-09 04:23] LABS: Carbon Dioxide 25 mmol/L (22.0-30.0); Creatine Kinase 71 U/L (30-135); Glucose 131 mg/dl (74-100)
[2023-12-09] MEDS: RINGERS SOLUTION,LACTATED 500 ML 999 ML IV (04:37)
[2023-12-09 04:46] LABS: Lactic Acid 1.2 mmol/L (0.7-2.1)
--- NOTE | 2023-12-09 06:12 | INFXCTL.NOTE ---
CT scan done. Pt. reassed per Dr. Taylor. Towel C-collar removed.
--- NOTE | 2023-12-09 07:11 | PC.NURSE ---
Report called to Laxmi THOMSON at [facility]
--- NOTE | 2023-12-09 08:30 | PC.NURSE ---
pt repositioned in bed to eat breakfast. Pt has been assisted with this and is currently still eating a little at this time on her own.
--- NOTE | 2023-12-09 12:20 | PC.NURSE ---
pt changed and repositioned in bed and turned on left side. TV on and bilateral bedrails up
--- NOTE | 2023-12-09 12:50 | PC.NURSE ---
[facility] here for transport to [place], report given
== END 2023-12-09 13:08 ==
PROVIDERS: Emergency Medicine; Emergency Provider Student in an Organized Health Care Education/Training Program
DX: S00.03XA Contusion of scalp, initial encounter (principal); W19.XXXA Unspecified fall, initial encounter; I10 Essential (primary) hypertension
CPT/HCPCS: 70450; 72125; 80048; 82550; 83605; 85025; 96374; 99284; 99285; J7120